=== PATIENT | female | born 1935 | race Caucasian/White ===

== ENCOUNTER → 2024-02-13 11:08 | Outpatient (REF) | payer MEDICARE, OTHER, SELFPAY ==
[2024-02-13 12:02] LABS: Urine Albumin Trace (Neg - Trace); Urine Bilirubin Negative (Negative); Urine Character Clear (Clear); Urine Color Yellow; Urine Glucose 3+ (Negative); Urine Ketone Negative (Negative); Urine Leukocyte 1+ (Negative); Urine Nitrite Negative (Negative); Urine Occult Blood Negative (Negative); Urine Specific Gravity 1.015 (<1.030); Urine Urobilinogen Negative (Neg - 1+)
[2024-02-13 12:29] LABS: Urine Squamous Cell >30 /LPF (Few)
[2024-02-13 12:32] LABS: Urine Urothelial Cell 0-2 /LPF (FEW)
[2024-02-13 12:37] LABS: Urine Bacteria Few (Negative)
== END ==
LOC: REG 11:08
PROVIDERS: ATTENDING PHYSICIAN Family Medicine
DX: N39.0 Urinary tract infection, site not specified (principal)
CPT/HCPCS: 81003; 81015; 87086

== ENCOUNTER → 2024-02-20 16:08 | Outpatient (REF) | payer MEDICARE, OTHER, SELFPAY ==
[2024-02-20 17:14] LABS: Urine Albumin Negative (Neg - Trace); Urine Bilirubin Negative (Negative); Urine Character Clear (Clear); Urine Color Yellow; Urine Glucose Negative (Negative); Urine Ketone Negative (Negative); Urine Leukocyte Negative (Negative); Urine Nitrite Negative (Negative); Urine Occult Blood Negative (Negative); Urine Specific Gravity 1.005 (<1.030); Urine Urobilinogen Negative (Neg - 1+)
== END ==
LOC: REG 16:08
PROVIDERS: ATTENDING PHYSICIAN Family Medicine
DX: N39.0 Urinary tract infection, site not specified (principal)
CPT/HCPCS: 81003; 87086

== ENCOUNTER → 2024-03-07 11:43 | Outpatient (REF) | payer MEDICARE, OTHER, SELFPAY ==
[2024-03-07 12:38] LABS: Urine Albumin Trace (Neg - Trace); Urine Bilirubin Negative (Negative); Urine Character Clear (Clear); Urine Color Yellow; Urine Glucose Negative (Negative); Urine Ketone Negative (Negative); Urine Leukocyte Trace (Negative); Urine Nitrite Negative (Negative); Urine Occult Blood Negative (Negative); Urine Urobilinogen Negative (Neg - 1+)
[2024-03-07 12:55] LABS: Urine Bacteria Few (Negative); Urine Red Blood Cell 0-2 /HPF (0-2)
== END ==
LOC: REG 11:43
PROVIDERS: ATTENDING PHYSICIAN Family Medicine
DX: R30.0 Dysuria (principal)
CPT/HCPCS: 81003; 81015

== ENCOUNTER → 2024-05-01 13:37 | Outpatient (REF) | payer MEDICARE, OTHER, SELFPAY ==
[2024-05-01 15:34] LABS: Blood Urea Nitrogen 49 mg/dl (7-17); Calcium 9.4 mg/dl (8.4-10.2); Carbon Dioxide 29 mmol/L (22-30); Chloride 98 mmol/L (98-107); Glucose 287 mg/dl (70-99); Sodium 135 mmol/L (135-145); eGFR 25.24
== END ==
LOC: REG 13:37
PROVIDERS: ATTENDING PHYSICIAN Internal Medicine Cardiovascular Disease
DX: I50.33 Acute on chronic diastolic (congestive) heart failure (principal)
CPT/HCPCS: 36415; 80048

== ENCOUNTER → 2024-05-22 14:42 | Outpatient (REF) | payer MEDICARE, OTHER, SELFPAY ==
[2024-05-22 15:44] LABS: Urine Albumin Trace (Neg - Trace); Urine Bilirubin Negative (Negative); Urine Character Clear (Clear); Urine Color Yellow; Urine Glucose 1+ (Negative); Urine Ketone Negative (Negative); Urine Leukocyte Trace (Negative); Urine Nitrite Negative (Negative); Urine Occult Blood Negative (Negative); Urine Urobilinogen Negative (Neg - 1+); Urine pH 6.5 (5.0-9.0)
[2024-05-22 15:50] LABS: Urine Bacteria Many (Negative); Urine Red Blood Cell 0-2 /HPF (0-2)
== END ==
LOC: REG 14:42
PROVIDERS: ATTENDING PHYSICIAN Family Medicine
DX: R30.0 Dysuria (principal)
CPT/HCPCS: 81003; 81015; 87077; 87086

== ENCOUNTER → 2024-06-19 13:40 | Outpatient (REF) | payer MEDICARE, OTHER, SELFPAY ==
[2024-06-19 14:13] LABS: Urine Albumin Trace (Neg - Trace); Urine Bilirubin Negative (Negative); Urine Character Slightly Cloudy (Clear); Urine Color Yellow; Urine Glucose Negative (Negative); Urine Ketone Negative (Negative); Urine Leukocyte Trace (Negative); Urine Nitrite Negative (Negative); Urine Occult Blood Negative (Negative); Urine Urobilinogen Negative (Neg - 1+)
[2024-06-19 14:36] LABS: Urine Bacteria Many (Negative); Urine Red Blood Cell 0-2 /HPF (0-2); Urine Squamous Cell 0-2 /LPF (Few)
== END ==
LOC: REG 13:40
PROVIDERS: ATTENDING PHYSICIAN Family Medicine
DX: N39.0 Urinary tract infection, site not specified (principal)
CPT/HCPCS: 81003; 81015; 87077; 87086; 87186

== ENCOUNTER → 2024-07-08 16:44 | Outpatient (REF) | payer MEDICARE, OTHER, SELFPAY ==
[2024-07-08 17:00] LABS: Urine Albumin Trace (Neg - Trace); Urine Bilirubin Negative (Negative); Urine Character Slightly Cloudy (Clear); Urine Color Yellow; Urine Glucose 2+ (Negative); Urine Ketone Negative (Negative); Urine Leukocyte Negative (Negative); Urine Nitrite Negative (Negative); Urine Occult Blood Negative (Negative); Urine Urobilinogen Negative (Neg - 1+)
== END ==
LOC: REG 16:44
PROVIDERS: ATTENDING PHYSICIAN Family Medicine
DX: R30.9 Painful micturition, unspecified (principal)
CPT/HCPCS: 36415; 81003; 87077; 87086

== ENCOUNTER → 2024-08-12 12:00 | Outpatient (REF) | payer MEDICARE, OTHER, SELFPAY ==
[2024-08-12 14:07] LABS: Urine Albumin Trace (Neg - Trace); Urine Bilirubin Negative (Negative); Urine Character Clear (Clear); Urine Color Yellow; Urine Glucose Negative (Negative); Urine Ketone Negative (Negative); Urine Leukocyte Trace (Negative); Urine Nitrite Negative (Negative); Urine Occult Blood Negative (Negative); Urine Urobilinogen Negative (Neg - 1+); Urine pH 6.5 (5.0-9.0)
[2024-08-12 14:32] LABS: Urine Bacteria Many (Negative); Urine Red Blood Cell 0-2 /HPF (0-2)
== END ==
LOC: REG 12:00
PROVIDERS: ATTENDING PHYSICIAN Family Medicine
DX: R30.9 Painful micturition, unspecified (principal)
CPT/HCPCS: 36415; 81003; 81015; 87077; 87086; 87186

== ENCOUNTER → 2024-08-27 12:57 | Outpatient (REF) | payer MEDICARE, OTHER, SELFPAY ==
[2024-08-27 14:28] LABS: Urine Albumin Trace (Neg - Trace); Urine Bilirubin Negative (Negative); Urine Character Very Cloudy (Clear); Urine Color Yellow; Urine Glucose 2+ (Negative); Urine Ketone Negative (Negative); Urine Leukocyte Negative (Negative); Urine Nitrite Negative (Negative); Urine Occult Blood Negative (Negative); Urine Urobilinogen Negative (Neg - 1+)
== END ==
LOC: REG 12:57
PROVIDERS: ATTENDING PHYSICIAN Family Medicine
DX: R30.9 Painful micturition, unspecified (principal)
CPT/HCPCS: 81003; 87086

== ENCOUNTER → 2024-08-28 13:50 | Outpatient (REF) | payer MEDICARE, OTHER, SELFPAY ==
[2024-08-28 14:56] LABS: % Basophils 0.4 % (0-2); % Eosinophils 2.9 % (0-6); % Immature Granulocytes 1.4 % (0-0.5); % Monocytes 8.9 % (1.7-9.3); % Neutrophils 73.4 % (42.2-75.2); Absolute Eosinophils 0.3 10^3/uL (0-0.7); Absolute Immature Granulocytes 0.1 10^3/uL (0-0.05); Absolute Lymphocytes 1.1 10^3/uL (1.2-3.4); Absolute Monocytes 0.8 10^3/uL (0.1-0.6); Absolute Neutrophils 6.3 10^3/uL (1.4-6.5); Hematocrit 36.4 % (37.0-47.0); Hemoglobin 11.9 g/dL (12.0-16.0); Mean Corp Hgb Conc. 32.7 g/dL (33.0-37.0); Mean Corpuscular Hgb 33.2 pg (27.0-31.0); Mean Corpuscular Volume 101.7 fL (81.0-99.0); Mean Platelet Volume 8.6 fL (7.4-10.4); Nucleated Red Blood Cells % 0 %; Platelet Count 203 10^3/uL (130-400); Red Blood Cell Count 3.58 10^6/uL (4.20-5.40); Red Cell Dist. Width 16.9 % (11.5-14.5); White Blood Cell Count 8.6 10^3/uL (4.8-10.8)
[2024-08-28 15:16] LABS: ALT (SGPT) 21 U/L (0-35); AST (SGOT) 28 U/L (14-36); Albumin 3.7 g/dl (3.5-5.0); Alkaline Phosphatase 130 U/L (38-126); Blood Urea Nitrogen 50 mg/dl (7-17); Calcium 9.5 mg/dl (8.4-10.2); Carbon Dioxide 29 mmol/L (22-30); Chloride 97 mmol/L (98-107); Glucose 276 mg/dl (70-99); Magnesium 1.9 mg/dl (1.6-2.3); Potassium 4.7 mmol/L (3.5-5.1); Sodium 139 mmol/L (135-145); Total Bilirubin 0.4 mg/dl (0.2-1.3); Total Protein 6.8 g/dl (6.3-8.2); eGFR 26.93
[2024-08-28 15:20] LABS: NT-proBNP 7130 pg/ml
== END ==
LOC: REG 13:50
PROVIDERS: ATTENDING PHYSICIAN Internal Medicine Cardiovascular Disease; FAMILY PHYSICIAN Family Medicine
DX: I50.32 Chronic diastolic (congestive) heart failure (principal); R06.02 Shortness of breath; E78.5 Hyperlipidemia, unspecified
CPT/HCPCS: 36415; 80053; 83735; 83880; 85025

== ENCOUNTER → 2024-09-15 13:48 | Outpatient (REF) | payer MEDICARE, OTHER, SELFPAY ==
[2024-09-15 14:22] LABS: Urine Albumin Negative (Neg - Trace); Urine Bilirubin Negative (Negative); Urine Character Clear (Clear); Urine Color Yellow; Urine Glucose 1+ (Negative); Urine Ketone Negative (Negative); Urine Leukocyte Negative (Negative); Urine Nitrite Negative (Negative); Urine Occult Blood Negative (Negative); Urine Urobilinogen Negative (Neg - 1+)
== END ==
LOC: REG 13:48
PROVIDERS: ATTENDING PHYSICIAN Family Medicine
DX: R30.0 Dysuria (principal)
CPT/HCPCS: 81003; 87077; 87086

== ENCOUNTER → 2024-10-22 13:34 | Outpatient (REF) | payer MEDICARE, OTHER, SELFPAY ==
[2024-10-22 15:01] LABS: Urine Albumin Trace (Neg - Trace); Urine Bilirubin Negative (Negative); Urine Character Slightly Cloudy (Clear); Urine Color Yellow; Urine Glucose 1+ (Negative); Urine Ketone Negative (Negative); Urine Leukocyte 1+ (Negative); Urine Nitrite Negative (Negative); Urine Occult Blood Negative (Negative); Urine Specific Gravity 1.015 (<1.030); Urine Urobilinogen Negative (Neg - 1+)
[2024-10-22 15:46] LABS: Urine Red Blood Cell 0-2 /HPF (0-2)
[2024-10-22 15:47] LABS: Urine Bacteria Many (Negative)
== END ==
LOC: REG 13:34
PROVIDERS: ATTENDING PHYSICIAN Family Medicine
DX: N39.0 Urinary tract infection, site not specified (principal)
CPT/HCPCS: 81003; 81015; 87077; 87086; 87186

== ENCOUNTER → 2024-12-16 14:37 | Outpatient (REF) | payer MEDICARE, OTHER, SELFPAY ==
[2024-12-16 16:35] LABS: Urine Albumin 2+ (Neg - Trace); Urine Bilirubin Negative (Negative); Urine Character Clear (Clear); Urine Color Yellow; Urine Glucose Negative (Negative); Urine Ketone Negative (Negative); Urine Leukocyte 2+ (Negative); Urine Nitrite Negative (Negative); Urine Occult Blood 1+ (Negative); Urine Urobilinogen Negative (Neg - 1+)
[2024-12-16 16:55] LABS: Urine Bacteria Many (Negative); Urine White Cell 16-20 /HPF (0-5)
== END ==
LOC: REG 14:37
PROVIDERS: ATTENDING PHYSICIAN Family Medicine
DX: N39.0 Urinary tract infection, site not specified (principal)
CPT/HCPCS: 81003; 81015; 87077; 87086

== ENCOUNTER → 2024-12-20 11:28 | Outpatient (REF) | payer MEDICARE, OTHER, SELFPAY ==
[2024-12-20 12:20] LABS: % Basophils 0.6 % (0-2); % Eosinophils 2.4 % (0-6); % Immature Granulocytes 0.5 % (0-0.5); % Lymphocytes 10.2 % (20.5-51.1); % Monocytes 7.2 % (1.7-9.3); % Neutrophils 79.1 % (42.2-75.2); Absolute Basophils 0.1 10^3/uL (0-0.2); Absolute Eosinophils 0.2 10^3/uL (0-0.7); Absolute Lymphocytes 0.9 10^3/uL (1.2-3.4); Absolute Monocytes 0.6 10^3/uL (0.1-0.6); Hematocrit 38.1 % (37.0-47.0); Hemoglobin 12.2 g/dL (12.0-16.0); Mean Corpuscular Hgb 33.8 pg (27.0-31.0); Mean Corpuscular Volume 105.5 fL (81.0-99.0); Nucleated Red Blood Cells % 0.2 %; Platelet Count 185 10^3/uL (130-400); Red Blood Cell Count 3.61 10^6/uL (4.20-5.40); Red Cell Dist. Width 15.9 % (11.5-14.5); White Blood Cell Count 8.8 10^3/uL (4.8-10.8)
[2024-12-20 12:33] LABS: Blood Urea Nitrogen 57 mg/dl (7-17); Calcium 9.4 mg/dl (8.4-10.2); Carbon Dioxide 30 mmol/L (22-30); Chloride 93 mmol/L (98-107); Glucose 242 mg/dl (70-99); Potassium 4.3 mmol/L (3.5-5.1); Sodium 134 mmol/L (135-145); eGFR 18.16
== END ==
LOC: REG 11:28
PROVIDERS: ATTENDING PHYSICIAN Internal Medicine Hospice and Palliative Medicine; FAMILY PHYSICIAN Family Medicine
DX: R41.0 Disorientation, unspecified (principal); E11.9 Type 2 diabetes mellitus without complications
CPT/HCPCS: 36415; 80048; 85025

== ENCOUNTER → 2024-12-30 11:33 | Outpatient (REF) | payer MEDICARE, OTHER, SELFPAY ==
[2024-12-30 12:03] LABS: % Basophils 0.5 % (0-2); % Eosinophils 3.3 % (0-6); % Immature Granulocytes 0.2 % (0-0.5); % Lymphocytes 9.7 % (20.5-51.1); % Monocytes 9.1 % (1.7-9.3); % Neutrophils 77.2 % (42.2-75.2); Absolute Basophils 0.1 10^3/uL (0-0.2); Absolute Eosinophils 0.3 10^3/uL (0-0.7); Absolute Monocytes 0.9 10^3/uL (0.1-0.6); Absolute Neutrophils 7.8 10^3/uL (1.4-6.5); Hematocrit 38.3 % (37.0-47.0); Hemoglobin 12.8 g/dL (12.0-16.0); Mean Corp Hgb Conc. 33.4 g/dL (33.0-37.0); Mean Corpuscular Hgb 34.1 pg (27.0-31.0); Mean Corpuscular Volume 102.1 fL (81.0-99.0); Nucleated Red Blood Cells % 0 %; Platelet Count 217 10^3/uL (130-400); Red Blood Cell Count 3.75 10^6/uL (4.20-5.40); Red Cell Dist. Width 15.2 % (11.5-14.5); White Blood Cell Count 10.2 10^3/uL (4.8-10.8)
[2024-12-30 13:06] LABS: NT-proBNP 8280 pg/ml
[2024-12-30 13:09] LABS: ALT (SGPT) 24 U/L (0-35); AST (SGOT) 29 U/L (14-36); Albumin 4.2 g/dl (3.5-5.0); Alkaline Phosphatase 142 U/L (38-126); Blood Urea Nitrogen 61 mg/dl (7-17); Calcium 9.3 mg/dl (8.4-10.2); Carbon Dioxide 31 mmol/L (22-30); Chloride 92 mmol/L (98-107); Glucose 176 mg/dl (70-99); Potassium 4.3 mmol/L (3.5-5.1); Sodium 136 mmol/L (135-145); Total Bilirubin 0.9 mg/dl (0.2-1.3); Total Protein 7.3 g/dl (6.3-8.2); eGFR 21.17
[2024-12-30 13:15] LABS: Free T4 1.97 ng/dl (0.78-2.19)
[2024-12-30 13:29] LABS: TSH 2.69 uIU/ml (0.47-4.68)
[2024-12-30 13:55] LABS: Glycohemoglobin (HgbA1c) 8.3 % (4.0-5.6)
== END ==
LOC: REG 11:33
PROVIDERS: ATTENDING PHYSICIAN Internal Medicine Cardiovascular Disease; FAMILY PHYSICIAN Family Medicine; REFERRING PHYSICIAN Physician Assistant
DX: E03.9 Hypothyroidism, unspecified (principal); E11.65 Type 2 diabetes mellitus with hyperglycemia; I48.0 Paroxysmal atrial fibrillation
CPT/HCPCS: 36415; 80053; 83036; 83880; 84439; 84443; 85025

== ENCOUNTER → 2025-01-19 16:44 | Outpatient (REF) | payer MEDICARE, OTHER, SELFPAY ==
[2025-01-19 17:35] LABS: Urine Albumin 2+ (Neg - Trace); Urine Bilirubin Negative (Negative); Urine Character Clear (Clear); Urine Color Yellow; Urine Glucose 2+ (Negative); Urine Ketone Negative (Negative); Urine Leukocyte 2+ (Negative); Urine Nitrite Negative (Negative); Urine Occult Blood Negative (Negative); Urine Specific Gravity 1.015 (<1.030); Urine Urobilinogen Negative (Neg - 1+)
[2025-01-19 17:48] LABS: Urine Squamous Cell 21-25 /LPF (Few)
[2025-01-19 17:50] LABS: Urine Bacteria Many (Negative); Urine Red Blood Cell 0-2 /HPF (0-2); Urine White Cell 26-30 /HPF (0-5)
== END ==
LOC: REG 16:44
PROVIDERS: ATTENDING PHYSICIAN Family Medicine
DX: N39.0 Urinary tract infection, site not specified (principal)
CPT/HCPCS: 81003; 81015; 87086

== ENCOUNTER 2025-01-23 07:31 | Inpatient (IN) | payer MEDICARE, OTHER, SELFPAY ==
[2025-01-23] VITALS (24 sets, daily range): BP systolic 115–160; BP diastolic 62–112; BMI 34.6
[2025-01-23 01:36] LABS: Glucose - Point of Care 110 mg/dl (70-99)
[2025-01-23 01:54] LABS: % Basophils 0.7 % (0-2); % Eosinophils 2.5 % (0-6); % Immature Granulocytes 0.3 % (0-0.5); % Lymphocytes 8.6 % (20.5-51.1); % Monocytes 11.2 % (1.7-9.3); % Neutrophils 76.7 % (42.2-75.2); Absolute Basophils 0.1 10^3/uL (0-0.2); Absolute Eosinophils 0.2 10^3/uL (0-0.7); Absolute Lymphocytes 0.6 10^3/uL (1.2-3.4); Absolute Monocytes 0.8 10^3/uL (0.1-0.6); Absolute Neutrophils 5.4 10^3/uL (1.4-6.5); Hemoglobin 12.1 g/dL (12.0-16.0); Mean Corp Hgb Conc. 31.8 g/dL (33.0-37.0); Mean Corpuscular Hgb 33.8 pg (27.0-31.0); Mean Corpuscular Volume 106.1 fL (81.0-99.0); Mean Platelet Volume 9.1 fL (7.4-10.4); Nucleated Red Blood Cells % 0 %; Platelet Count 162 10^3/uL (130-400); Red Blood Cell Count 3.58 10^6/uL (4.20-5.40); Red Cell Dist. Width 16.8 % (11.5-14.5); White Blood Cell Count 7.1 10^3/uL (4.8-10.8)
[2025-01-23 02:02] LABS: INR 1.43
[2025-01-23 02:03] LABS: APTT 34.9 Sec (23.4-35.0)
[2025-01-23 02:06] LABS: ALT (SGPT) 23 U/L (0-35); AST (SGOT) 27 U/L (14-36); Albumin 4.3 g/dl (3.5-5.0); Alkaline Phosphatase 132 U/L (38-126); Blood Urea Nitrogen 81 mg/dl (7-17); Calcium 9.5 mg/dl (8.4-10.2); Carbon Dioxide 35 mmol/L (22-30); Chloride 96 mmol/L (98-107); Estimated Creatinine Clearance 18 ml/min; Glucose 108 mg/dl (70-99); Potassium 3.7 mmol/L (3.5-5.1); Sodium 141 mmol/L (135-145); Total Bilirubin 0.9 mg/dl (0.2-1.3); Total Protein 7.6 g/dl (6.3-8.2); eGFR 21.17
[2025-01-23 02:16] LABS: Erythrocyte Sed Rate 41 mm/hour (0-20)
[2025-01-23 02:22] LABS: Urine Bilirubin Negative (Negative); Urine Character Clear (Clear); Urine Color Yellow; Urine Glucose Negative (Negative); Urine Ketone Negative (Negative); Urine Leukocyte Negative (Negative); Urine Nitrite Negative (Negative); Urine Occult Blood Negative (Negative); Urine Specific Gravity 1.015 (<1.030); Urine Urobilinogen Negative (Neg - 1+)
[2025-01-23 02:26] LABS: Urine Albumin Trace (Neg - Trace)
[2025-01-23 02:49] LABS: Venous Blood Gas B.E. 6.7 mmol/L (-4 to +4); Venous Blood Gas HCO3 33.5 mmol/L (22-27); Venous Blood Gas O2 Sat % 98.1 %; Venous Blood Gas pCO2 58 mmHg (35-48); Venous Blood Gas pH 7.37 (7.32-7.43); Venous Blood Gas pO2 83 mmHg (30-50)
[2025-01-23 03:05] LABS: Lactic Acid 1.2 mmol/L (0.7-2.0)
[2025-01-23 03:29] LABS: Procalcitonin 0.06 ng/ml (0.0-0.25)
[2025-01-23 04:22] LABS: COVID-19 Antigen Negative (Negative)
[2025-01-23 04:39] LABS: NT-proBNP 14500 pg/ml
--- NOTE | 2025-01-23 04:49 | ED.GENMED ---
History of Present Illness
General
Chief Complaint: Unresponsive
Time Seen by Provider: 01/23/25 01:38
History of Present Illness
History of Present Illness:
89-year-old female brought in by EMS for altered mental status. could not wake his up. Dexcom read 74 so has been tried to give her orange juice. EMS was called on arrival blood sugar was 55. EMS gave D10 and blood sugar increased
to 142 without any change in patient's mental status. Patient was responsive to painful stimuli upon arrival. Family member states that she has been putting on weight. She does take Lasix but feel that she has had a 10 pound weight gain. Son
even feels that patient might of taken or have been given too much Ambien. Something that he will monitor.
Past History
Past History
ED Past Medical History: CAD, Cancer (malignant melanoma, basal cell carcinoma of the ear), COPD, GERD, HTN, Hypercholesterolemia, NIDDM, [place], Hypothyroidism, Other (insulin pump, iron deficiency anemia, duodenal ulcer, intra-abdominal
lymphadenopathy dating 01/01/14, patient has been vaccinated for COVID-19), Other (polyneuropathy, hyperparathyroidism 2018, osteoarthritis, postherpetic neuralgia) and Other (chronic pain, glaucoma, diverticulosis, colonic polyposis, vitamin B12
deficiency)
ED Past Surgical History: Cholecystectomy, Gynecological (ROMEL/BSO), Orthopedic (carpal tunnel repair, laminectomy) and Other (cervicalgia with 2 epidural injections, Mohs surgery for basal cell carcinoma of the ear); Negative Bowel resection (rectal
fistulas surgically repaired)
Social History
Tobacco: Non-smoker
Alcohol: None
Drug: None
Personal:
Living: with family
Employment: Retired
Family History
Family History: Other (reviewed and noncontributory)
Phy Exam
Physical Exam
Physical Exam:
Physical Exam
Vital signs and allergy list reviewed and agreed with.
GENERAL: Obtunded, in minimal
EYE: pupils equal, EOMI, anicteric
NECK: Supple, no significant adenopathy. No masses. Trachea midline
ENT: Oropharynx is clear, mmm.
CARDIAC: Regular rate and rhythm . No M/R/G
LUNGS: Clear breath sounds bilaterally, no acute respiratory distress, no wheezes/rales/rhonchi
ABDOMEN: Soft, without focal tenderness, no r/g, no cvat. Normal BSx4q
NEUROLOGICAL: Alert and oriented, no focal neuro deficits
SKIN: Warm and dry, skin intact.
MUSCULOSKELETAL: No edema, well perfused. Moves all 4 extremities
PSYCH: Minimal interaction
Scores
Heart Failure Risk
Heart Failure Risk Score: Yes
History of Stroke or TIA: No
History of intubation for respiratory distress: No
Heart rate on ED arrival >/= 110: No
SaO2 <90% on arrival on room air: No
HR >/=110 during 3min walk test (or too ill to perform test): Yes
ECG has acute ischemic changes: No
Urea >/=12mmol/L (BUN 33.6mg/dL): Yes
Serum CO2>/=35mmol/L: Yes
Troponin I or T elevated to [place] Level (0.4mg/dL): Yes
NT-proBNP >/=5,000ng/L (5,000pg/ml): Yes
HF Risk Score: 8
Admission Status: VERY HIGH RISK 81.2% Consider admission to hospital
Course
Orders/Labs/Results
Orders:
Orders
01/23/25 01:38
CT Head W/o Iv Contrast Urgent
Comment:
Reason For Exam: unresponsive
Cardiac Monitoring- Treatment ONCE
01/23/25 01:39
Electrocardiogram (*1) Stat
Reason for Study: Other
Other Reason for Exam: neuro symptoms
EKG- Treatment ONCE
01/23/25 01:44
B-Hydroxybutyrate Urgent
Complete Blood Count/With Diff Urgent
Comprehensive Metabolic Panel Urgent
Erythrocyte Sed Rate Urgent
PTT Urgent
Prothrombin Time Urgent
01/23/25 02:04
Straight cath- Treatment ONCE
Straight Cath As Directed
Frequency: One time now
01/23/25 02:16
Urinalysis Reflex To Culture Urgent
Date Specimen was Collected: 01/23/25
Time Specimen was Collected: 02:05
01/23/25 02:45
Lactic Acid Q4H
Comment: CANCEL 2nd LACTIC ACID IF 1st LACTIC ACID IS LESS THAN 2
Procalcitonin Urgent
PCT Algorithmm Indication: Sepsis
Venous Blood Gas Urgent
%Oxygen/Room Air: 2l
01/23/25 03:45
COVID-19 Antigen Urgent
Source: Nasal Swab
Pro-BNP [NT-proBNP] Urgent
Troponin I Urgent
Comment: ADD ON
Influenza A+B Rapid Molecular Urgent
YA Source: Nasal Swab
Specimen Description:
01/23/25 04:49
Furosemide [Lasix] 80 mg IV NOW STA
01/23/25 04:52
Add On- LAB Urgent
Tests Added?: troponin
01/23/25 06:00
Flush (0.9% Sodium Chloride) [Flush (Nss)] See Dose Instructions IV PER PROTOCOL
01/23/25 06:19
CR Chest Portable - 1 View Stat
Comment:
Reason For Exam: shortness of breath
Reason Study Needs to be Portable: Unable to Transport
01/23/25 06:52
Admit/Transfer Patient As Directed
Co-Sign Provider:
Level of Care: Inpatient admission
Assign to:: IMU- Intermediate Care
Physician / Group: hospitalist
Diagnosis: CHF exacerbation
Reason for Hospitalization: CHF exacerbation/altered mentation
Expected length of stay greater than two midnights?: Yes
ELOS- Estimated Length of Stay in days: 2
I certify the patient meets the requirements for IP care: Yes
PRN Pain Medication Management As Directed
May give lesser potent ordered pain med per pt: Yes
preference::
Protocol:: Medication orders for pain may be administered in a
manner that supports deferring to patient preference
when the pt is:
- Requesting an ordered lesser potent pain medication.
Least to most potent pain medications are defined
as: acetaminophen < NSAID < tramadol < opioids
(morphine, oxycodone, hydromorphone).
- Requesting a lesser dose of the same medication IF
ORDERED.
- Requesting a less intrusive route of administration
if both routes are prescribed by the provider (PO <
IV).
01/23/25 06:55
Code Status As Directed
Resuscitation Status: Do not resuscitate
Reached after discussion with pt or family/Healthcare POA: Yes
Based on pt advanced directive or healthcare POA form: Yes
DNR Bracelet Application ONCE
Abnormal Lab Results
01/23/25 01/23/25 01/23/25
01:35 01:44 02:45
RBC 3.58 L 10^6/uL
(4.20-5.40)
MCV 106.1 H fL
(81.0-99.0)
MCH 33.8 H pg
(27.0-31.0)
MCHC 31.8 L g/dL
(33.0-37.0)
RDW 16.8 H %
(11.5-14.5)
Absolute Lymphs (auto) 0.6 L 10^3/uL
(1.2-3.4)
Absolute Monos (auto) 0.8 H 10^3/uL
(0.1-0.6)
Neutrophils % 76.7 H %
(42.2-75.2)
Lymphocytes % 8.6 L %
(20.5-51.1)
Monocytes % 11.2 H %
(1.7-9.3)
ESR 41 H mm/hour
(0-20)
PT 18.0 H Sec
(11.4-14.6)
VBG pCO2 58 H mmHg
(35-48)
VBG pO2 83 H mmHg
(30-50)
VBG HCO3 33.5 H mmol/L
(22-27)
Chloride 96 L mmol/L
(98-107)
Carbon Dioxide 35 H mmol/L
(22-30)
BUN 81 H mg/dl
(7-17)
Creatinine 2.2 H mg/dL
(0.6-1.0)
Glucose 108 H mg/dl
(70-99)
Alkaline Phosphatase 132 H U/L
(38-126)
Troponin I
POC Glucose 110 H mg/dl
(70-99)
01/23/25
03:45
RBC
MCV
MCH
MCHC
RDW
Absolute Lymphs (auto)
Absolute Monos (auto)
Neutrophils %
Lymphocytes %
Monocytes %
ESR
PT
VBG pCO2
VBG pO2
VBG HCO3
Chloride
Carbon Dioxide
BUN
Creatinine
Glucose
Alkaline Phosphatase
Troponin I 0.142 H* ng/ml
POC Glucose
01/23/25 01:44
01/23/25 01:44
Vital Signs
Initial and Last Documented VS:
Initial Vital Signs
Pulse Resp Pulse Ox
104 19 97
01/23/25 01:34 01/23/25 01:34 01/23/25 01:34
Last Documented Vital Signs
Temp Pulse Resp BP Pulse Ox
98.1 F 77 20 143/90 98
01/23/25 02:17 01/23/25 06:45 01/23/25 06:45 01/23/25 06:30 01/23/25 06:45
*Critical Care Note
Total Time (30-74mins, 75-104mins- exclusive of procedures): Critical care statement: (Critical care statement: A total of 30 minutes of critical care time was provided for this patient. This time is separate from time utilized to perform the
aforementioned documented procedures. Aggregate critical care time includes only time during which I was engaged in work directl)
Update Note
Update Note:
Patient proBNP is elevated.
ED Attending Note
-
Portions of this chart may have been created with voice recognition software.� Occasional wrong word or��sound alike� substitutions may have occurred due to the inherent limitations of voice recognition software.
Discharge Plan
Departure
Patient Disposition: Admit
Date of Disposition: 01/23/25
Time of Disposition: 04:52
Admit to: Telemetry
Presentation/result/management discussed w/ accepting MD/DO: Hospitalist
Discharge Problem:
Acute alteration in mental status, CHF (congestive heart failure), Acute renal failure
Prescriptions:
No Action
gabapentin 300 MG capsule
600 mg PO TID
atorvastatin 40 MG tablet
40 mg PO QPM 30 Days Qty: 30 0RF
pantoprazole 40 MG tablet,delayed release (DR/EC)
40 mg PO BID 30 Days Qty: 60 2RF
Eliquis 2.5 MG tablet
2.5 mg PO BID 30 Days Qty: 60 0RF
metoprolol succinate [Toprol XL] 50 mg Tablet Extended Release 24 Hr
25 mg PO BID
sennosides [Senokot] 8.6 mg Tablet
8.6 mg PO QPMPRN PRN (Reason: constipation)
potassium chloride 10 mEq Capsule, Extended Release
20 meq PO DAILY
levothyroxine 125 mcg Tablet
137 mcg PO DAILY
zolpidem 5 mg Tablet
5 mg PO HS
Rx Instructions:
10/09/2023, patient filled this medication on 09/10/2023 for 30 tablets according to PDMP.
insulin aspart U-100 [Novolog FlexPen U-100 Insulin] 100 unit/mL (3 mL) Insulin Pen
0 sliding scale dose SC DIRECTED
Rx Instructions:
10/09/2023, if BS <100 = 0 units; 100-149 = 16 units; 150-199 = 19 units; 200-249 = 21 units; 250-299 = 23 units; 300-349 = 25 units; 350-399 = 27 units; 400+ = 29 units and contact MD.
duloxetine 60 mg Capsule,Delayed Release(Dr/Ec)
30 mg PO QPM
cholecalciferol (vitamin D3) 25 mcg (1,000 unit) Tablet
50 mcg PO DAILY
metolazone 2.5 mg tablet
1.25 mg PO DAILYPRN PRN (Reason: edema)
insulin degludec [Tresiba U-100 Insulin] 100 UNIT/ML solution
27 unit SC QPM
furosemide [Lasix] 80 mg tablet
80 mg PO BID
dextromethorphan-guaifenesin 10-100 mg/5 mL Syrup
5 ml PO Q4HPRN PRN (Reason: cough) Qty: 237 0RF
Rx Instructions:
Buy over the counter
guaifenesin 600 mg Tablet Extended Release 12hr
600 mg PO Q12 Qty: 14 0RF
cefuroxime axetil 250 mg tablet
250 mg PO BID Qty: 6 0RF
Rx Instructions:
for 3 days
doxycycline hyclate 100 mg Capsule
100 mg PO Q12 Qty: 6 0RF
Rx Instructions:
for 3 more days
Referrals:
Jose C Rockwell MD [Family Provider] -
Interventions
Interventions:
*Risk Screen - Suicide Last Done: 01/23/25 01:49
*General Assessment Last Done: 01/23/25 01:49
*Neglect/Abuse Screening Last Done: 01/23/25 01:49
*ED- Fall Risk Assessment Last Done: 01/23/25 01:48
*ED COVID-19 Vaccine History Last Done: 01/23/25 01:48
ED- Neurological Assessment Last Done: 01/23/25 02:18
Discharge Date and Time
Print Language: BELARUSIAN
[2025-01-23] MEDS: LASIX 80 MG IV ×2 (05:01→17:07)
[2025-01-23 06:03] LABS: Troponin I 0.142 ng/ml
--- NOTE | 2025-01-23 06:10 | HPS.HSE ---
Family Physician
-
Family Physician: Jose C Rockwell
Chief Complaint
-
Altered mental status
History of Present Illness
This is a 89-year-old female with past medical history of SCOTT, COPD on nocturnal O2, not compliant with nocturnal CPAP, hypertension, GERD, CHF, A-fib status post ablation and pacemaker placement hypothyroid, presenting to the emergency department
after being found unresponsive by spouse.
Patient apparently was in usual state of health about 1 week ago. Then she started having some decreased appetite and changes in mentation. She had a urine study that was contaminated but could be positive for UTI. Ultimately patient was started
on cephalexin about 3 days ago. Family also reported that her usual weight was around 168 pounds otherwise she appears to have been gaining weight over the last few days. She usually gets edema in her abdomen and legs. Over the last few days she
also has been more noncompliant with her CPAP. They have been giving her nocturnal oxygen to prevent agitation with CPAP. Family reports that she has had similar episodes of nonresponsiveness in the setting of urinary tract infections in the past.
They denied any changes in medications. Blood glucose was checked at home and it was 78 which is somewhat low for her and he could not revive to give her additional glucose. EMS was also called. She got IV glucose with EMS with repeat glucose of
140 and she is now responsive to painful stimuli but is not fully awake still.
On arrival in the emergency department she was afebrile, she was satting 94% on 2 L. Blood pressure was 121/70 with a pulse of 79. ECG with V paced rhythm. Trop 0.142. COVID and influenza test were negative. UA was negative. CT of the head
shows no acute interval changes. She has elevated BNP of 1400. CBC was unremarkable stop electrolytes BUN/creatinine shows stable elevated BUN/creatinine compared to 1 month ago. ABG was 7.3 /33.5
Interrogation of PPM shows no events since January 13. CT of the head shows no acute intracranial process.
Medical History
Past Medical History
Past Medical History: Reports Other
Additional Past Medical History:
Chronic HFpEF
Paroxysmal Atrial Fibrillation
Sick Sinus Syndrome s/p PPM
Essential Hypertension
Hyperlipidemia
Diabetes Mellitus, Type II
CKD Stage 4
Hypothyroidism
Peptic Ulcer Disease with hx GI Bleed
Spinal Stenosis
Peripheral Neuropathy
Obstructive Sleep Apnea
Past Surgical History: Reports Other
Additional Past Surgical History:
Rectal Fistula Repair
Cholecystectomy
ROMEL/BSO
Bilateral Carpal Tunnel Release
Laminectomy
Moh's Surgery
Social History
Tobacco: Non-smoker
Alcohol: None
Personal:
Living: With Family
Family History
Family History: Not pertinent
Allergies / Home Medications
Allergies reflects when Allergies were last updated in [employer].
Home Medications with original date entered in [employer]
Allergy/Medication List:
Allergies
Allergy/AdvReac Type Severity Reaction Status Date / Time
erythromycin base Allergy Intermediate Rash Verified 01/23/25 01:48
latex Allergy Intermediate Rash Verified 01/23/25 01:48
Opioids - Morphine Analogues Allergy Intermediate Unknown Verified 01/23/25 01:48
silver sulfadiazine Allergy Intermediate Rash Verified 01/23/25 01:48
Home Medications
gabapentin 300 mg capsule 600 mg PO TID Pain 08/05/21
apixaban 2.5 mg tablet (Eliquis) 2.5 mg PO BID Blood clot prevention/tx 30 days #60 tabs 02/23/22
atorvastatin 40 mg tablet 40 mg PO QPM High cholesterol 30 days #30 tabs 02/23/22
pantoprazole 40 mg tablet,delayed release 40 mg PO BID Gastrointestinal issue 30 days #60 tabs 02/23/22
metoprolol succinate 50 mg tablet,extended release 24 hr (Toprol XL) 25 mg PO BID Blood pressure 02/27/23
cholecalciferol (vitamin D3) 25 mcg (1,000 unit) tablet 50 mcg PO DAILY Supplement 10/09/23
duloxetine 60 mg capsule,delayed release 30 mg PO QPM Mental Health/Anxiety 10/09/23
furosemide 80 mg tablet (Lasix) 80 mg PO BID Fluid Retention/Swelling 10/09/23
insulin aspart U-100 100 unit/mL (3 mL) subcutaneous pen (Novolog FlexPen U-100 Insulin aspart) 0 sliding scale dose SC DIRECTED Diabetes 10/09/23
insulin degludec 100 unit/mL subcutaneous solution (Tresiba U-100 Insulin) 27 unit SC QPM Diabetes 10/09/23
levothyroxine 125 mcg tablet 137 mcg PO DAILY Thyroid 10/09/23
metolazone 2.5 mg tablet 1.25 mg PO DAILYPRN PRN edema 10/09/23
potassium chloride 10 mEq capsule,extended release 20 meq PO DAILY Electrolyte Repletion 10/09/23
sennosides 8.6 mg tablet (Senokot) 8.6 mg PO QPMPRN PRN constipation 10/09/23
zolpidem 5 mg tablet 5 mg PO HS sleep 10/09/23
cefuroxime axetil 250 mg tablet 250 mg PO BID #6 tabs 10/12/23
dextromethorphan-guaifenesin 10 mg-100 mg/5 mL oral syrup 5 ml PO Q4HPRN PRN cough #237 mL 10/12/23
doxycycline hyclate 100 mg capsule 100 mg PO Q12 #6 caps 10/12/23
guaifenesin 600 mg tablet, extended release 12 hr 600 mg PO Q12 #14 tabs 10/12/23
Review of Systems
-
Unable to obtain full review of systems at this time due to: Acuity
History Source: Family
Constitutional: Reports No Symptoms
EENT: Reports No Symptoms
Respiratory: Reports No Symptoms
Cardiac: Reports No Symptoms
Abdomen/GI: Reports No Symptoms
: Reports No Symptoms
Musculoskeletal: Reports No Symptoms
Skin: Reports No Symptoms
Neurological: Reports Other (confusion)
Endocrine: Reports No Symptoms
Hematologic/Lymphatic: Reports No Symptoms
Psych: Reports No Symptoms
Physical Exam
Vital Signs
Vital Signs
Temp Pulse Resp BP Pulse Ox
98.1 F 79 21 121/71 94
01/23/25 02:17 01/23/25 02:45 01/23/25 02:45 01/23/25 02:30 01/23/25 02:45
Physical Exam
General: Well Developed and Obese; No Respiratory Distress
HEENT: NormoCephalic, Anicteric, Moist mucous membranes, Atraumatic and Oxygen
Respiratory: Clear
Cardiac: S1/S2 and Regular Rhythm
Breast: Deferred by me
GI: Non Tender and Normal Bowel Sounds
Rectal: Deferred by Provider
Genito-urinary: Deferred by me
Musculoskeletal: No Clubbing, No Cyanosis and No Edema
Skin: Warm
Neuro: Awake, Alert, Oriented (oriented to person only), Nonfocal/grossly intact and Slurred Speech
Hematologic/Lymphatic: No Lymphadenopathy
Psych: Calm
Laboratory Results
-
01/23/25 01:44
01/23/25 01:44
Laboratory Results
PT 18.0 Sec (11.4-14.6) H 01/23/25 01:44
INR 1.43 01/23/25 01:44
APTT 34.9 Sec (23.4-35.0) 01/23/25 01:44
Lactic Acid Cancelled 01/23/25 06:30
Total Bilirubin 0.9 mg/dl (0.2-1.3) 01/23/25 01:44
AST 27 U/L (14-36) 01/23/25 01:44
ALT 23 U/L (0-35) 01/23/25 01:44
Alkaline Phosphatase 132 U/L (38-126) H 01/23/25 01:44
Troponin I Cancelled 01/23/25 04:51
Data Reviewed
-
Diagnostic Radiology: Image Personally Visualized and interpreted
CT Scan: Report Reviewed by me
Medical Tests (Nuc Med, Echo, EKG etc): Image Personally Visualized and interpreted
Old Records: Reviewed
Impression/Plan
-
IMPRESSION:
Patient with altered mental status not responsive to awakening by spouse, remained somnolent despite improvement with IV dextrose. Currently awake and oriented to person but remains confused. Neuro exam notable for slurred speech. U/A negative.
COVID/FLU negative. CT head negative. No other signs of infection. Despite non-compliance, VBG shows chronic CO2 retention but not particularly remarkable and with normal pH. BNP elevated, trop elevated. No chest pain. On anticoagulation.
Mental status appears to be improving.
PLAN:
1. Altered mental status - No clear etiology of encephalopathy. CO2 appropriate, negative infectious w/u, negative procal. Glucose improved. U/A negative. Possibly med related versus TIA/CVA.
- admit to telemetry
- npo for now
- hold gabapentin (takes 600 bid) and GFR is now down, hold zolpidem and CBD gummies
- MRI in am
- neurochecks q 6 hours
2. SOB - Lungs with decreased airmovement but no wheezes or crackles. Subjective weightgain per family. Trial of metolazone once w/o increased uop. BNP elevated. Trop 0.14. Suspect CHF exacerbation
- xray
- Lasix 80mg iv q 12 for now
- daily weights and i/os
- salt and fluid restrictions
- no wheezing to suggests copd exacerbation,
- negative procalcitonin
- patient has chronic elevated troponin, no cp, trend trops for now
- continue eliquis, aspirin pr x 1
- cardiology consult
3. DM II - Previously on tresiba 27 w/ sliding scale. Family stopped the tresiba due to recurrent episodes of hypoglycemia
- sliding scale insulin for now
4. AFIB
- continue Eliquis
5. UTI - u/a is clear. Patient on day 3 of 5 of cefuoxime
- continue ceftriaxone 1 g daily till sunday
6. AMANDA - AMANDA since November while on bactrim. Cr 2.2 and stable since then. bl one year ago 1.7-1.8. Poor response to metolazone at home. Weight gain and elevated bnp suggest volume overload
- continue lasix for now
- nephrology consult if creatinine increases
DVT PPX - on apixaban
Code status - DNR
[2025-01-23] MEDS: TOPROL XL 25 MG PO ×2 (09:11→20:08)
[2025-01-23] MEDS: ELIQUIS 2.5 MG PO ×2 (09:11→20:08)
[2025-01-23] MEDS: ROCEPHIN 1000 MG IV (09:12)
[2025-01-23] MEDS: SYNTHROID PO (09:14)
[2025-01-23] MEDS: STERILE WATER FOR INJECTION 10 ML IV (09:14)
[2025-01-23 09:39] LABS: Troponin I 0.154 ng/ml
[2025-01-23 09:53] LABS: Glucose - Point of Care 107 mg/dl (70-99)
[2025-01-23] MEDS: NOVOLOG FLEXPEN-LOW RESISTANCE SC ×2 (09:54→13:38)
--- NOTE | 2025-01-23 13:01 | CON.CAR ---
Addendum entered and electronically signed by Meeta Nguyen DO 01/23/25 15:14:
I saw and examined the patient.
The Pole Peeling Machine Operator's note was reviewed and I agree with the note.
Comment: Patient was seen and examined in the ED with her and cardiac PA. Eileen is an 89 year old female with PMH of persistent atrial fibrillation s/p AV node ablation and PPM implant 02/2023, chronic HFpEF, COPD, CKD, chronic anemia, HTN,
HLD, hypothyroidism, DM2, SCOTT, GERD, WESTLEY, spinal stenosis, and chronic UTIs who presented to [facility] for evaluation after she was noted to be unresponsive 01/22. Family had called the cardiology office 01/21 noting weight gain of 6lbs despite giving a
dose of metolazone the day before. Plan was to follow weights another day, so they called back 01/22 but patient was too unsteady to stand on the scale. went back later in to check on patient and she was unresponsive. Her blood sugar was 74,
so he tried to give her orange juice, but this did not help, so EMS was called. Of note, a few days prior to this she was started on antibiotics for suspected UTI. Son was concerned that patient may have accidentally taken too much ambien. In ER,
she was noted to be in acute heart failure with proBNP 14,500. Head CT was without acute intracranial abnormality, but she remained somewhat lethargic and confused, but has been improving throughout the day today. CXR consistent with heart failure.
Medtronic Carelink Express showed no arrhythmias since last device check 01/14. Covid and flu testing negative. UA unremarkable, but patient has been maintained on abx. Otherwise labwork appeared at baseline. She was admitted with altered mental
status and acute heart failure. Cardiology consulted for evaluation.
General: NAD but sleepy. Awake and alert oriented to person and place. She cannot recall events of last evening
Respiratory: Bronchovesicular breath sounds, decreased at the bases fine crackles.
Cardiac: Regular. Positive S1-S2. Device site present. No murmur or rub
Musculoskeletal: No edema. Warm distal extremities
Plan:
-Change in mental status with episode of unresponsiveness at home
-Patient had been well previous to this episode; blood sugar with Dexcom 74 but symptoms did not improve with treatment of mild hypoglycemia out of proportion to symptoms
-No reported falls or head trauma
-Has been treated at home for UTI with antibiotic. No fevers. Covid and flu testing negative. Continues on abx for previously diagnosed UTI. UA in ER unremarkable.
-History of sleep apnea and hypoxemia on CPAP with nocturnal O2. CPAP compliance has been difficult but she has been wearing nocturnal oxygen.
-Mentation improving throughout the day today. Head CT without acute intracranial abnormality. Brain MRI pending.
Acute on chronic heart failure with preserved ejection fraction
- proBNP elevated at 14,500.
- Agree w/ IV diuresis. Continue 80mg BID. May need metolazone.
-Creat stable, at baseline of 2.2, follow closely with diuresis.
-Weight elevated in ER at 188 lbs, had been 175 lbs at home on 01/21. Dry weight approx 164 lbs.
-Follow daily weights, I&Os.
-Echocardiogram
-Elevated troponin noted, appears to have chronic troponin elevation, stable at 0.142, 0.154. Likely related to chronic HFpEF and CKD.
- Known permanent atrial fibrillation s/p AV node ablation.
-Device interrogation with normal function
-Continue Eliquis 2.5mg BID and Toprol 25mg BID.
Will follow with you
Original Note:
Consultation
Consultation Request
Date/Time Consultation Requested: 01/22/2025
Date/Time Consultation Performed: 01/22/2025
Requesting Provider: Dr. Jurado
Performing Provider: Airam Bui PA-C for Dr. Nguyen
Reason for Consultation: CHF
Medical History
-
History of Present Illness:
HPI: Eileen is an 89 year old female with PMH of persistent atrial fibrillation s/p AV node ablation and PPM implant 02/2023, chronic HFpEF, COPD, CKD, chronic anemia, HTN, HLD, hypothyroidism, DM2, SCOTT, GERD, WESTLEY, spinal stenosis, and chronic UTIs
who presented to [facility] for evaluation after she was noted to be unresponsive 01/22. Family had called the cardiology office 01/21 noting weight gain of 6lbs despite giving a dose of metolazone the day before. Plan was to follow weights another day, so
they called back 01/22 but patient was too unsteady to stand on the scale. went back later in to check on patient and she was unresponsive. Her blood sugar was 74, so he tried to give her orange juice, but this did not help, so EMS was
called. Of note, a few days prior to this she was started on antibiotics for suspected UTI. Son was concerned that patient may have accidentally taken too much ambien. In ER, she was noted to be in acute heart failure with proBNP 14,500. Head CT was
without acute intracranial abnormality, but she remained somewhat lethargic and confused, but has been improving throughout the day today. CXR consistent with heart failure. Medtronic Carelink Express showed no arrhythmias since last device check
01/14. Covid and flu testing negative. UA unremarkable, but patient has been maintained on abx. Otherwise labwork appeared at baseline. She was admitted with altered mental status and acute heart failure. Cardiology consulted for evaluation.
PMH:
Permanent atrial fibrillation
Intolerant to Amiodarone due to possible lung toxicity d/josé 09/2021
Chronic OAC with Eliquis
s/p AV node ablation 03/01/2023
Chronic HFpEF
Sick sinus syndrome
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
COPD
CKD 3b
Chronic anemia
Hypertension
Hyperlipidemia
Hypothyroidism
Diabetes type 2
Obstructive sleep apnea
Malignant melanoma
Basal cell carcinoma
GERD
WESTLEY
Duodenal ulcer
Retroperitoneal lymphadenopathy
Spinal stenosis
Osteoarthritis
History of type II GA in setting of GI bleed 06/2020
Dementia
Chronic UTIs
Past Medical History
Past Medical History: Other (See HPI)
Past Surgical History: Cardiac (s/p single chamber medtronic PPM 02/20/2023, s/p AV node ablation 03/01/2023), Cholecystectomy, Gynecological (ROMEL/SBO), Orthopedic (Laminectomy) and Other (Carpel tunnel surgery, MOHS on ear, surgical repair of rectal
fistula)
Social History
Tobacco: Non-Smoker
Alcohol: None
Drug: None
Personal:
Living: With Family
Employment: Retired
Family History
Family History: CAD, Cancer, Diabetes and Hypertension
Allergies / Home Medications
Allergy/AdvReac Type Severity Reaction Status Date / Time
erythromycin base Allergy Intermediate Rash Verified 01/23/25 01:48
latex Allergy Intermediate Rash Verified 01/23/25 01:48
Opioids - Morphine Analogues Allergy Intermediate Unknown Verified 01/23/25 01:48
silver sulfadiazine Allergy Intermediate Rash Verified 01/23/25 01:48
�Medication �Instructions �Recorded �Confirmed �Type
gabapentin 300 mg capsule 600 mg PO BID Pain 08/05/21 01/23/25 History
apixaban 2.5 mg tablet (Eliquis) 2.5 mg PO BID Blood clot 02/23/22 01/23/25 Rx
prevention/tx 30 days #60 tabs
atorvastatin 40 mg tablet 40 mg PO QPM High cholesterol 30 02/23/22 01/23/25 Rx
days #30 tabs
pantoprazole 40 mg tablet,delayed 40 mg PO BID Gastrointestinal 02/23/22 01/23/25 Rx
release issue 30 days #60 tabs
duloxetine 60 mg capsule,delayed 60 mg PO HS Mental Health/Anxiety 10/09/23 01/23/25 History
release
furosemide 80 mg tablet (Lasix) 40 mg PO BID Fluid 10/09/23 01/23/25 History
Retention/Swelling
insulin aspart U-100 100 unit/mL 0 sliding scale dose SC AC Diabetes 10/09/23 01/23/25 History
(3 mL) subcutaneous pen (Novolog
FlexPen U-100 Insulin aspart)
levothyroxine 125 mcg tablet 125 mcg PO DAILY Thyroid 10/09/23 01/23/25 History
metolazone 2.5 mg tablet 1.25 mg PO DAILYPRN PRN 4 pounds 10/09/23 01/23/25 History
weight gain
potassium chloride 10 mEq 20 meq PO DAILY Electrolyte 10/09/23 01/23/25 History
capsule,extended release Repletion
sennosides 8.6 mg tablet (Senokot) 8.6 mg PO MOTH 10/09/23 01/23/25 History
zolpidem 5 mg tablet 2.5 mg PO HS sleep 10/09/23 01/23/25 History
Ellura 36 mg PO DAILY 01/23/25 01/23/25 History
Lactobac no.2-Bifidobac no.1-S. 1 cap PO DAILY 01/23/25 01/23/25 History
thermo 112.5 billion cell capsule
(Visbiome)
cephalexin 250 mg capsule 250 mg PO TID 01/23/25 01/23/25 History
cholecalciferol (vitamin D3) 50 50 mcg PO DAILY 01/23/25 01/23/25 History
mcg (2,000 unit) tablet (Vitamin
D3)
docusate sodium 100 mg capsule 100 mg PO DAILY 01/23/25 01/23/25 History
(Colace)
metoprolol succinate 25 mg 50 mg PO BID 01/23/25 01/23/25 History
tablet,extended release 24 hr
nitroglycerin 0.4 mg sublingual 0.4 mg sublingual [id number] PRN 01/23/25 01/23/25 History
tablet chest pain
therapeutic multivitamin 1 tab PO DAILY 01/23/25 01/23/25 History
Review of Systems
-
History Source: Patient and Family ( at bedside)
All other systems: Negative unless noted
Physical Exam
Vital Signs
Temp Pulse Resp BP Pulse Ox
98.1 F 77 16 132/76 98
01/23/25 02:17 01/23/25 11:00 01/23/25 11:00 01/23/25 11:00 01/23/25 10:00
Lab Results
01/23/25 01:44
01/23/25 01:44
Troponin I 0.154 ng/ml H* 01/23/25 08:32
Xdt-N-Syclhpbnoey Pept 27111 pg/ml 01/23/25 03:45
Physical Exam
General: Well Developed, Well Nourished and No Apparent Distress
HEENT: Normocephalic, Anicteric and Moist Mucous Membranes
Respiratory: Non Labored Respirations
Cardiac: Regular Rhythm
Musculoskeletal: No Clubbing, No Cyanosis and No Edema
Skin: Warm and Dry
Neuro: Nonfocal/Grossly Intact
Psych: Calm
Impression / Plan
-
PCP:
Distribution Clerk: Dr. Santa Yen
PMH:
Permanent atrial fibrillation
Intolerant to Amiodarone due to possible lung toxicity d/josé 09/2021
Chronic OAC with Eliquis
s/p AV node ablation 03/01/2023
Chronic HFpEF
Sick sinus syndrome
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
COPD
CKD 3b
Chronic anemia
Hypertension
Hyperlipidemia
Hypothyroidism
Diabetes type 2
Obstructive sleep apnea
Malignant melanoma
Basal cell carcinoma
GERD
WESTLEY
Duodenal ulcer
Retroperitoneal lymphadenopathy
Spinal stenosis
Osteoarthritis
History of type II GA in setting of GI bleed 06/2020
Dementia
Chronic UTIs
Lexiscan nuclear stress test 07/30/2019:�EKG inconclusive, dyspnea reported, perfusion images normal, EF 65%
ECHO 08/08/21:�EF 60-65%, mild cLVH, stage 2 diastolic dysfunction, posterior MAC, mild MR, mod dilated LA, trace AR
ECHO 03/21/21:�EF 65-70%, mild concentric LVH, stage I diastolic dysfunction, thickened and the leaflets, mild MR, pericardial fat pad present
Echo 02/28/2023: EF 60-65%, mild cLVH, mild MR, aortic sclerosis without stenosis, trace AR, mild TR, estimated PAP 45 mmHg, pleural effusion present.
Echo 01/23/2025: Study completed, report pending
Plan:
-Presented after being found unresponsive by . No arrhythmias noted at time of event on device check. Blood sugar was 74 and mental status did not improve w/ orange juice.
-Mentation improving throughout the day today. Head CT without acute intracranial abnormality. Brain MRI pending.
-Also in acute heart failure w/ proBNP elevated at 14,500. Agree w/ IV diuresis. Continue 80mg BID. May need metolazone.
-Creat stable, at baseline of 2.2, follow closely with diuresis.
-Weight elevated in ER at 188 lbs, had been 175 lbs at home on 01/21. Dry weight approx 164 lbs.
-Follow daily weights, I&Os.
-Echo completed in ER. Await report.
-Elevated troponin noted, appears to have chronic troponin elevation, stable at 0.142, 0.154. Likely related to chronic HFpEF and CKD.
-Covid and flu testing negative. Continues on abx for previously diagnosed UTI. UA in ER unremarkable.
-EKG reviewed, V paced. Known permanent atrial fibrillation s/p AV node ablation.
-Continue Eliquis 2.5mg BID and Toprol 25mg BID.
HPI: Eileen is an 89 year old female with PMH of persistent atrial fibrillation s/p AV node ablation and PPM implant 02/2023, chronic HFpEF, COPD, CKD, chronic anemia, HTN, HLD, hypothyroidism, DM2, SCOTT, GERD, WESTLEY, spinal stenosis, and chronic UTIs
who presented to [facility] for evaluation after she was noted to be unresponsive 01/22. Family had called the cardiology office 01/21 noting weight gain of 6lbs despite giving a dose of metolazone the day before. Plan was to follow weights another day, so
they called back 01/22 but patient was too unsteady to stand on the scale. went back later in to check on patient and she was unresponsive. Her blood sugar was 74, so he tried to give her orange juice, but this did not help, so EMS was
called. Of note, a few days prior to this she was started on antibiotics for suspected UTI. Son was concerned that patient may have accidentally taken too much ambien. In ER, she was noted to be in acute heart failure with proBNP 14,500. Head CT was
without acute intracranial abnormality, but she remained somewhat lethargic and confused, but has been improving throughout the day today. CXR consistent with heart failure. Medtronic [employer]link Express showed no arrhythmias since last device check
01/14. Covid and flu testing negative. UA unremarkable, but patient has been maintained on abx. Otherwise labwork appeared at baseline. She was admitted with altered mental status and acute heart failure. Cardiology consulted for evaluation.
Data Reviewed
-
EKG: Tracing Personally Visualized and interpreted
Radiology: Report Reviewed by me
CT Scan: Report Reviewed by me
Labs: Labs Reviewed by me
Old Records: Reviewed
[2025-01-23 13:07] LABS: Glucose - Point of Care 172 mg/dl (70-99)
--- NOTE | 2025-01-23 14:30 | PTCARENOTE ---
Patient received from ED. Patient awake and pleasant and confused. Currently on 2L N/C. No fluids through IV. Patient quickly assessed and placed on IMU level monitoring and sent straight for MRI. Admission questions to be done with at
bedside. Frantz ordered. Oriented to room, call daily in reach.
[2025-01-23] MEDS: LIPITOR 40 MG PO (17:07)
[2025-01-23] MEDS: KCL 40 MEQ PO (17:07)
[2025-01-23 17:44] LABS: Glucose - Point of Care 195 mg/dl (70-99)
--- NOTE | 2025-01-23 18:02 | W.PN.UPDATE ---
Update Note
Progress Note Update
Seen and examined. No new complaints. No acute overnight events. She is awake verbalizing knows that she is in the hospital however cannot tell me the name of the hospital. States that the year is 1924. and son at bedside.
Per dry weight 168, 1 week later increased to 178 and now 188
Evidence of conversational dyspnea
Scleral Anicteric
MMM
No JVD
CTABL
RRR, S1/S2
Soft, NT, ND, BS+
Warm, Dry
AAOx3, bilaterally 4/5 motor strength in lower and upper extremities, weak equal nut processing supervisor strength in upper extremities, weak dorsiflexion plantarflexion bilaterally
Calm
Toxic metabolic encephalopathy
-Resolving
-Suspect secondary to slightly elevated creatinine leading to delayed drug metabolism and excretion in the setting of gabapentin and CBD Gummies and Cymbalta
-Additionally per family noted poor p.o. intake therefore cannot exclude dehydration especially in the setting of creat of 2.2 baseline of 1.7-1.9 less than 1 year ago
-Since there is no focal neurological deficits hold off on MRI however was already obtained. Did not show any acute changes
Acute on chronic hypoxemic respiratory failure at baseline uses nocturnal O2/CPAP
-Wean oxygen as tolerated
-IV diuresis
Acute on chronic HFpEF exacerbation, NYHA class III-IV
-IV diuresis
-Wean oxygen
-Monitor urinary output
-Daily weights
-Repeat BMP in the a.m., keep K greater than 4 magnesium greater than 2
AMANDA, unclear if this is CKD or truly new AMANDA with potential renal vein congestion
Will repeat BMP a.m.
Monitor urinary output
Bladder scan
If getting worse consult nephrology
Avoid nephrotoxins
Avoid hypotension
UTI, recently diagnosed as outpatient was on cephalexin
Continue Rocephin for now
DM type II
Sliding scale insulin for now
Hyperlipidemia
Continue statin
SCOTT
Continue CPAP at 10
Hypertension
Continue antihypertensives
A-fib s/p ablation and PPM
Continue Eliquis
Hypothyroidism
Continue levothyroxine
[2025-01-23] MEDS: NOVOLOG FLEXPEN-LOW RESISTANCE 300 UNITS SC (18:19)
[2025-01-23 18:57] LABS: Troponin I 0.146 ng/ml
--- NOTE | 2025-01-23 20:26 | PTCARENOTE ---
Received pt at change of shift. Pt oriented to self and time but thinks we are in March. Family was at bedside; has since left. Pt remains pleasant. Pt stated that pt is on 2L at baseline at home; currently 100% on 2L NC. Discussed
with pt the importance of wearing her CPAP mask throughout the night. Q4H neurochecks; see documentation. Able to talk all medications with no issues. Hygiene care provided. Resting in bed with call daily in reach.
[2025-01-23 22:53] LABS: Glucose - Point of Care 267 mg/dl (70-99)
[2025-01-24] VITALS (10 sets, daily range): BP systolic 55–145; BP diastolic 33–100; PULSE 84; BMI 32.9
[2025-01-24 04:49] LABS: Hematocrit 36.3 % (37.0-47.0); Hemoglobin 11.6 g/dL (12.0-16.0); Mean Corpuscular Hgb 33.4 pg (27.0-31.0); Mean Corpuscular Volume 104.6 fL (81.0-99.0); Mean Platelet Volume 9.4 fL (7.4-10.4); Platelet Count 153 10^3/uL (130-400); Red Blood Cell Count 3.47 10^6/uL (4.20-5.40); Red Cell Dist. Width 16.9 % (11.5-14.5); White Blood Cell Count 8.6 10^3/uL (4.8-10.8)
[2025-01-24 05:10] LABS: Blood Urea Nitrogen 80 mg/dl (7-17); Calcium 9.5 mg/dl (8.4-10.2); Carbon Dioxide 32 mmol/L (22-30); Chloride 96 mmol/L (98-107); Estimated Creatinine Clearance 20 ml/min; Glucose 257 mg/dl (70-99); Magnesium 2.2 mg/dl (1.6-2.3); Potassium 3.8 mmol/L (3.5-5.1); Sodium 139 mmol/L (135-145); eGFR 23.73
[2025-01-24] MEDS: SYNTHROID 125 MCG PO (06:12)
[2025-01-24] MEDS: ELIQUIS 2.5 MG PO ×2 (07:32→20:49)
[2025-01-24] MEDS: TOPROL XL 25 MG PO ×2 (07:32→20:49)
[2025-01-24] MEDS: LASIX 80 MG IV ×2 (07:33→16:44)
[2025-01-24 08:08] LABS: Glucose - Point of Care 237 mg/dl (70-99)
--- NOTE | 2025-01-24 08:25 | PTCARENOTE ---
Patient received from shift supervisor. Patient resting comfortably in bed, calming yelling out for her . Patient was quickly reoriented and calm without yelling out after that. AAOx1-2 little lost on time, VSS. Patient was supposed to wear
CPAP overnight but refused and apparently was a little aggressive. Maintained on N/C overnight. No complaints of pain. Currently on 2L N/C, will attempt to wean. Still receiving Lasix BID. No testing ordered at this time. Call daily in reach.
[2025-01-24] MEDS: STERILE WATER FOR INJECTION 10 ML IV (08:33)
[2025-01-24] MEDS: NOVOLOG FLEXPEN-LOW RESISTANCE 2 UNITS SC ×2 (08:33→16:50)
[2025-01-24] MEDS: ROCEPHIN 1000 MG IV (08:33)
--- NOTE | 2025-01-24 12:01 | CM ---
Patient seen at bedside with sonJonn and patient . Patient answered initial assessment questions and reports everything is the same since patient was here last time. Patient stated that she lives with her , has a commode, wheelchair
for assistance getting into bed, and home oxygen. Patient son Jonn confirmed that his mother still has home health aides through [phone]/fax [phone] [place] nurses who come several days a week. Jonn reports family are with his mother
the days that are not covered by aides. Patient confirmed that PCP is Dr. Rockwell, and they use the pharmacy [facility]. Patient family denied any intrest in SNF placement and plan is to return to home with aides/family supports.
Patient continues with Palliative care. Patient has had [facility] also in the past for PT/OT. CM will continue to follow for discharge planning needs.
Plan; home with home health aides, watch for VN recommendations, continue in palliative care.
[2025-01-24 12:07] LABS: Glucose - Point of Care 331 mg/dl (70-99)
[2025-01-24] MEDS: NOVOLOG FLEXPEN-LOW RESISTANCE 4 UNITS SC (13:29)
--- NOTE | 2025-01-24 13:58 | W.PN.HOSP.TC ---
Today's Communication/Plan
-
Assessment / Plan
Assessment / Plan
Evidence of conversational dyspnea
Scleral Anicteric
MMM
No JVD
CTABL
RRR, S1/S2
Soft, NT, ND, BS+
Warm, Dry
AAOx3, bilaterally 4/5 motor strength in lower and upper extremities, weak equal construction craft laborer strength in upper extremities, weak dorsiflexion plantarflexion bilaterally
Calm
Toxic metabolic encephalopathy
-Resolving
-Suspect secondary to slightly elevated creatinine leading to delayed drug metabolism and excretion in the setting of gabapentin and CBD Gummies and Cymbalta
-Additionally per family noted poor p.o. intake therefore cannot exclude dehydration especially in the setting of creat of 2.2 baseline of 1.7-1.9 less than 1 year ago
-Since there is no focal neurological deficits hold off on MRI however was already obtained. Did not show any acute changes
Acute on chronic hypoxemic respiratory failure at baseline uses nocturnal O2/CPAP
-Wean oxygen as tolerated
-IV diuresis
Acute on chronic HFpEF exacerbation, NYHA class III-IV
-IV diuresis
-Wean oxygen
-Monitor urinary output
-Daily weights
-Repeat BMP in the a.m., keep K greater than 4 magnesium greater than 2
AMANDA, unclear if this is CKD or truly new AMANDA with potential renal vein congestion
Will repeat BMP a.m.
Monitor urinary output
Bladder scan
If getting worse consult nephrology
Avoid nephrotoxins
Avoid hypotension
UTI, recently diagnosed as outpatient was on cephalexin
Continue Rocephin for now
DM type II
Sliding scale insulin for now
Hyperlipidemia
Continue statin
SCOTT
Continue CPAP at 10
Hypertension
Continue antihypertensives
A-fib s/p ablation and PPM
Continue Eliquis
Hypothyroidism
Continue levothyroxine
Anticipated Discharge: 24 - 48 hours
Subjective/Interval History
-
Date of Service: January 24, 2025
Seen and examined. Son at bedside. No new complaints. No acute overnight events.
States that she wants to go home today.
Objective Data
-
Labs:
Laboratory Results
01/24/25
04:23
WBC 8.6
Hgb 11.6 L
Hct 36.3 L
Plt Count 153
Sodium 139
Potassium 3.8
Chloride 96 L
Carbon Dioxide 32 H
BUN 80 H
Creatinine 2.0 H
Glucose 257 H
Calcium 9.5
Vital Signs:
Vital Signs
Temp Pulse Resp BP Pulse Ox
97.9 F 70 15 126/90 95
01/24/25 11:20 01/24/25 07:32 01/24/25 06:17 01/24/25 07:32 01/24/25 10:05
I&O
01/23/25 01/24/25 01/25/25
06:59 06:59 06:59
Intake Total 240 / 240 360 / 360
Output Total 450 / 450 800 / 800
Balance -210 / -210 -440 / -440
--- NOTE | 2025-01-24 14:37 | W.PN.CARDCBS ---
Today's Communication / Plan
-
Continue IV diuresis
Follow input/output and daily weights
Replete electrolytes
Physical therapy
Continue to follow neurologic status
Impression / Plan
-
PCP:
Agricultural Produce Sorter: Dr. Santa Yen
Impression:
Acute on chronic heart failure with preserved ejection fraction and volume overload
TME/unresponsive
Permanent atrial fibrillation
Intolerant to Amiodarone due to possible lung toxicity d/josé 09/2021
Chronic OAC with Eliquis
s/p AV node ablation 03/01/2023
Sick sinus syndrome
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
COPD
CKD 3b
Chronic anemia
Hypertension
Hyperlipidemia
Hypothyroidism
Diabetes type 2
Obstructive sleep apnea
Malignant melanoma
Basal cell carcinoma
GERD
WESTLEY
Duodenal ulcer
Retroperitoneal lymphadenopathy
Spinal stenosis
Osteoarthritis
History of type II VT in setting of GI bleed 06/2020
Dementia
Chronic UTIs
Lexiscan nuclear stress test 07/30/2019:�EKG inconclusive, dyspnea reported, perfusion images normal, EF 65%
ECHO 08/08/21:�EF 60-65%, mild cLVH, stage 2 diastolic dysfunction, posterior MAC, mild MR, mod dilated LA, trace AR
ECHO 03/21/21:�EF 65-70%, mild concentric LVH, stage I diastolic dysfunction, thickened and the leaflets, mild MR, pericardial fat pad present
Echo 02/28/2023: EF 60-65%, mild cLVH, mild MR, aortic sclerosis without stenosis, trace AR, mild TR, estimated PAP 45 mmHg, pleural effusion present.
Echo 01/23/2025: Left ventricular ejection fraction 60%. Normal right ventricle. Aortic valve sclerosis. Moderate TR. PA pressure 55 to 60 mmHg.
Plan:
She has been having some increased volume and increasing shortness of breath at home. Zaroxolyn was taken x 1 as needed last week without improvement in 24 hours. She had an episode of unresponsiveness that was prolonged in the setting of volume
overload, perhaps taking extra zolpidem, also taking usual cannabis Gummies and not tolerating well sleep apnea apparatus. In addition her glucose was low. She also was completing treatment for UTI. She is fatigued today but doing better overall
and diuresing well. Dry weight is usually 168 pounds. Of note as an outpatient she was eating high sodium foods.
Acute on chronic heart failure with preserved ejection fraction w/ proBNP elevated at 14,500.
Continue aggressive IV diuresis. Currently on Lasix IV 80mg BID (baseline 40 mg Lasix twice daily with occasional metolazone as needed).
Weight has decreased 8 pounds since admission
Follow input/output/daily weights
Replete electrolytes
Heart failure consult-needs reeducation on diet
Physical therapy
TME/unresponsiveness
Multifactorial and in part related to overmedication especially with sleeping agents with chronic illness, sleep apnea, low sugar. Continue to maximize
They will speak with pulmonary regarding sleep apnea mask and in the meantime use home oxygen
Mentation improving throughout the day today. Head CT without acute intracranial abnormality. Brain MRI without acute abnormality
Limit polypharmacy as able
Discontinue zolpidem
Chronic renal insufficiency
Some azotemia noted BUN 80 which is stable/slightly lower than yesterday. Chronic renal insufficiency with creatinine likely at baseline 2.0
Continue to follow
Continue treatment of UTI per primary service.
Non-VT troponin elevation
Troponins always mildly elevated and continued to be flat likely related to acute decompensated heart failure with preserved ejection fraction and CKD
No segmental wall motion abnormality
Continue conservative management
Continue treatment of hyperlipidemia
Atrial fibrillation
Pacemaker and AVJ ablation stable.
Continue Eliquis 2.5mg BID and Toprol 25mg BID.
She is on palliative care as an outpatient
I spent 31 minutes critical care time evaluating volume overload and discussing plans at length with family at the bedside.
HPI: Eileen is an 89 year old female with PMH of persistent atrial fibrillation s/p AV node ablation and PPM implant 02/2023, chronic HFpEF, COPD, CKD, chronic anemia, HTN, HLD, hypothyroidism, DM2, SCOTT, GERD, WESTLEY, spinal stenosis, and chronic UTIs
who presented to [facility] for evaluation after she was noted to be unresponsive 01/22. Family had called the cardiology office 01/21 noting weight gain of 6lbs despite giving a dose of metolazone the day before. Plan was to follow weights another day, so
they called back 01/22 but patient was too unsteady to stand on the scale. went back later in to check on patient and she was unresponsive. Her blood sugar was 74, so he tried to give her orange juice, but this did not help, so EMS was
called. Of note, a few days prior to this she was started on antibiotics for suspected UTI. Son was concerned that patient may have accidentally taken too much ambien. In ER, she was noted to be in acute heart failure with proBNP 14,500. Head CT was
without acute intracranial abnormality, but she remained somewhat lethargic and confused, but has been improving throughout the day today. CXR consistent with heart failure. Medtronic [employer] showed no arrhythmias since last device check
01/14. Covid and flu testing negative. UA unremarkable, but patient has been maintained on abx. Otherwise labwork appeared at baseline. She was admitted with altered mental status and acute heart failure. Cardiology consulted for evaluation.
Progress Note - Agricultural Produce Sorter
Subjective
Date of Service: January 24, 2025
She is sleepy but denies complaints
Objective
Labs:
01/24/25 04:23
01/24/25 04:23
Labs
Hgb 11.6 g/dL (12.0-16.0) L 01/24/25 04:23
Hct 36.3 % (37.0-47.0) L 01/24/25 04:23
Plt Count 153 10^3/uL (130-400) 01/24/25 04:23
PT 18.0 Sec (11.4-14.6) H 01/23/25 01:44
INR 1.43 01/23/25 01:44
APTT 34.9 Sec (23.4-35.0) 01/23/25 01:44
Sodium 139 mmol/L (135-145) 01/24/25 04:23
Potassium 3.8 mmol/L (3.5-5.1) 01/24/25 04:23
BUN 80 mg/dl (7-17) H 01/24/25 04:23
Creatinine 2.0 mg/dL (0.6-1.0) H 01/24/25 04:23
Glucose 257 mg/dl (70-99) H 01/24/25 04:23
Troponins
01/23/25 01/23/25 01/23/25
03:45 04:51 08:32
Troponin I 0.142 H* Cancelled 0.154 H*
01/23/25
18:02
Troponin I 0.146 H*
Vital Signs and I&O:
Vital Signs
Temp Pulse Resp BP Pulse Ox
97.9 F 70 15 126/90 95
01/24/25 11:20 01/24/25 07:32 01/24/25 06:17 01/24/25 07:32 01/24/25 10:05
Vital Signs
Temp Pulse Resp BP Pulse Ox
97.9 F 70 15 126/90 95
01/24/25 11:20 01/24/25 07:32 01/24/25 06:17 01/24/25 07:32 01/24/25 10:05
Intake & Output
01/22/25 01/23/25 01/24/25 01/25/25
06:59 06:59 06:59 06:59
Intake Total 240 / 240 360 / 360
Output Total 450 / 450 800 / 800
Balance -210 / -210 -440 / -440
Physical Exam
Physical Exam
General: Elderly woman sleeping
Heart: Non displaced PMI, RRR, no murmurs, No S3, S4, no rubs.
Lungs: Coarse anterior breath sounds. Oxygen in place
Abdomen: distended.
Extremities: No clubbing, cyanosis +1 edema bilaterally.
Neuro: Sleepy
--- NOTE | 2025-01-24 16:24 | PTCARENOTE ---
Was noted last night that patients family had brought in outside food for patient. Main issue was a [employer] that could impact her accuchecks. Some drinks were noted on bedside table and explained to family members present to please
not bring in outside food and drink unless approved by RN or if they do to please let us know. Told them that it could effect the management of her insulin corrections as well as watching her fluids intake. Family ok and in agreement.
[2025-01-24] MEDS: LIPITOR 40 MG PO (16:47)
[2025-01-24 17:01] LABS: Glucose - Point of Care 248 mg/dl (70-99)
[2025-01-24 21:23] LABS: Glucose - Point of Care 285 mg/dl (70-99)
[2025-01-25] VITALS (11 sets, daily range): BP systolic 98–151; BP diastolic 59–108; PULSE 76; BMI 32.0
[2025-01-25 05:12] LABS: Hematocrit 37.9 % (37.0-47.0); Hemoglobin 12.4 g/dL (12.0-16.0); Mean Corp Hgb Conc. 32.7 g/dL (33.0-37.0); Mean Corpuscular Hgb 33.5 pg (27.0-31.0); Mean Corpuscular Volume 102.4 fL (81.0-99.0); Mean Platelet Volume 9.5 fL (7.4-10.4); Platelet Count 156 10^3/uL (130-400); Red Cell Dist. Width 16.5 % (11.5-14.5); White Blood Cell Count 8.1 10^3/uL (4.8-10.8)
[2025-01-25 05:37] LABS: Blood Urea Nitrogen 78 mg/dl (7-17); Calcium 9.7 mg/dl (8.4-10.2); Carbon Dioxide 35 mmol/L (22-30); Chloride 90 mmol/L (98-107); Estimated Creatinine Clearance 23 ml/min; Glucose 301 mg/dl (70-99); Potassium 3.3 mmol/L (3.5-5.1); Sodium 139 mmol/L (135-145); eGFR 28.84
--- NOTE | 2025-01-25 05:38 | PTCARENOTE ---
Received pt at change of shift. Pt AAOx2; disoriented to time at start of shift; became disoriented to self later in shift. Compliant with CPAP for 3 hours while sleeping. Very forgetful and tearful. Hygiene and oral care provided. Resting in
bed with call daily in reach.
[2025-01-25] MEDS: SYNTHROID 125 MCG PO (05:59)
[2025-01-25] MEDS: KCL 40 MEQ PO (05:59)
[2025-01-25] MEDS: STERILE WATER FOR INJECTION IV (08:07)
[2025-01-25 08:22] LABS: Glucose - Point of Care 295 mg/dl (70-99)
[2025-01-25] MEDS: ELIQUIS 2.5 MG PO ×2 (08:36→21:01)
[2025-01-25] MEDS: LASIX 80 MG IV ×2 (08:36→16:59)
[2025-01-25] MEDS: TOPROL XL 25 MG PO ×2 (08:36→21:01)
[2025-01-25] MEDS: NOVOLOG FLEXPEN-LOW RESISTANCE 3 UNITS SC ×3 (08:37→17:03)
[2025-01-25] MEDS: KCL ELIXIR 40 MEQ PO ×2 (11:09→16:58)
[2025-01-25 12:31] LABS: Glucose - Point of Care 299 mg/dl (70-99)
--- NOTE | 2025-01-25 13:31 | W.PN.CARDCBS ---
Today's Communication / Plan
-
Continue diuresis
Replete electrolytes
Follow creatinine
Physical therapy
Heart failure education
Impression / Plan
-
PCP:
Choker Setter: Dr. Santa Yen
Impression:
Acute on chronic heart failure with preserved ejection fraction and volume overload
TME/unresponsive
Permanent atrial fibrillation
Intolerant to Amiodarone due to possible lung toxicity d/josé 09/2021
Chronic OAC with Eliquis
s/p AV node ablation 03/01/2023
Sick sinus syndrome
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
COPD
CKD 3b
Chronic anemia
Hypertension
Hyperlipidemia
Hypothyroidism
Diabetes type 2
Obstructive sleep apnea
Malignant melanoma
Basal cell carcinoma
GERD
WESTLEY
Duodenal ulcer
Retroperitoneal lymphadenopathy
Spinal stenosis
Osteoarthritis
History of type II OK in setting of GI bleed 06/2020
Dementia
Chronic UTIs
Lexiscan nuclear stress test 07/30/2019:�EKG inconclusive, dyspnea reported, perfusion images normal, EF 65%
ECHO 08/08/21:�EF 60-65%, mild cLVH, stage 2 diastolic dysfunction, posterior MAC, mild MR, mod dilated LA, trace AR
ECHO 03/21/21:�EF 65-70%, mild concentric LVH, stage I diastolic dysfunction, thickened and the leaflets, mild MR, pericardial fat pad present
Echo 02/28/2023: EF 60-65%, mild cLVH, mild MR, aortic sclerosis without stenosis, trace AR, mild TR, estimated PAP 45 mmHg, pleural effusion present.
Echo 01/23/2025: Left ventricular ejection fraction 60%. Normal right ventricle. Aortic valve sclerosis. Moderate TR. PA pressure 55 to 60 mmHg.
Plan:
She is admitted for heart failure with preserved ejection fraction and TME/unresponsiveness along with UTI. Appetites not great today and they are working on this. She is feeling better today. More interactive. Her weight continues to decrease
with diuretic.
She has been having some increased volume and increasing shortness of breath at home. Zaroxolyn was taken x 1 as needed last week without improvement in 24 hours. She had an episode of unresponsiveness that was prolonged in the setting of volume
overload, perhaps taking extra zolpidem, also taking usual cannabis Gummies and not tolerating well sleep apnea apparatus. In addition her glucose was low. She also was completing treatment for UTI. Weight on admission was 188 pounds currently on
175 pounds. Dry weight is usually 168 pounds.
Acute on chronic heart failure with preserved ejection fraction w/ proBNP elevated at 14,500.
Continue IV diuresis. Currently on Lasix IV 80mg BID (baseline 40 mg Lasix twice daily with occasional metolazone as needed).
On discharge given issues with dietary noncompliance at times would increase standing Lasix dosing to 60 mg twice daily
Follow input/output/daily weights
Replete electrolytes
Heart failure consult-needs reeducation on diet
Physical therapy
Have not used SGLT2 inhibitor given frequent urinary related issues and fluctuating creatinine. Similarly would avoid MRA at this time.
Physical therapy
TME/unresponsiveness
Multifactorial and in part related to overmedication especially with sleeping agents with chronic illness, sleep apnea, low sugar. Continue to maximize
They will speak with pulmonary regarding sleep apnea mask and in the meantime use home oxygen
Head CT without acute intracranial abnormality. Brain MRI without acute abnormality
Limit polypharmacy as able
Slept but and was discontinued.
Chronic renal insufficiency
Some azotemia noted BUN continues to improve with diuresis. Chronic renal insufficiency with creatinine continuing to improve and has been near baseline currently at 1.7 on 01/25/2025
Continue to follow
Continue treatment of UTI per primary service.
Non-OK troponin elevation
Troponins always mildly elevated and continued to be flat likely related to acute decompensated heart failure with preserved ejection fraction and CKD
No segmental wall motion abnormality
Continue conservative management
Continue treatment of hyperlipidemia
Atrial fibrillation
Pacemaker and AVJ ablation stable.
Continue Eliquis 2.5mg BID and Toprol 25mg BID.
She is on palliative care as an outpatient
Spoke at length with family at the bedside.
HPI: Eileen is an 89 year old female with PMH of persistent atrial fibrillation s/p AV node ablation and PPM implant 02/2023, chronic HFpEF, COPD, CKD, chronic anemia, HTN, HLD, hypothyroidism, DM2, SCOTT, GERD, WESTLEY, spinal stenosis, and chronic UTIs
who presented to [facility] for evaluation after she was noted to be unresponsive 01/22. Family had called the cardiology office 01/21 noting weight gain of 6lbs despite giving a dose of metolazone the day before. Plan was to follow weights another day, so
they called back 01/22 but patient was too unsteady to stand on the scale. went back later in to check on patient and she was unresponsive. Her blood sugar was 74, so he tried to give her orange juice, but this did not help, so EMS was
called. Of note, a few days prior to this she was started on antibiotics for suspected UTI. Son was concerned that patient may have accidentally taken too much ambien. In ER, she was noted to be in acute heart failure with proBNP 14,500. Head CT was
without acute intracranial abnormality, but she remained somewhat lethargic and confused, but has been improving throughout the day today. CXR consistent with heart failure. Medtronic [employer] showed no arrhythmias since last device check
01/14. Covid and flu testing negative. UA unremarkable, but patient has been maintained on abx. Otherwise labwork appeared at baseline. She was admitted with altered mental status and acute heart failure. Cardiology consulted for evaluation.
Progress Note - Choker Setter
Subjective
Date of Service: January 25, 2025
She denies chest pain, palpitations and dizziness.
Objective
Labs:
01/25/25 04:58
01/25/25 04:58
Labs
Hgb 12.4 g/dL (12.0-16.0) 01/25/25 04:58
Hct 37.9 % (37.0-47.0) 01/25/25 04:58
Plt Count 156 10^3/uL (130-400) 01/25/25 04:58
PT 18.0 Sec (11.4-14.6) H 01/23/25 01:44
INR 1.43 01/23/25 01:44
APTT 34.9 Sec (23.4-35.0) 01/23/25 01:44
Sodium 139 mmol/L (135-145) 01/25/25 04:58
Potassium 3.3 mmol/L (3.5-5.1) L 01/25/25 04:58
BUN 78 mg/dl (7-17) H 01/25/25 04:58
Creatinine 1.7 mg/dL (0.6-1.0) H 01/25/25 04:58
Glucose 301 mg/dl (70-99) H 01/25/25 04:58
Troponins
01/23/25 01/23/25 01/23/25
03:45 04:51 08:32
Troponin I 0.142 H* Cancelled 0.154 H*
01/23/25
18:02
Troponin I 0.146 H*
Vital Signs and I&O:
Vital Signs
Temp Pulse Resp BP Pulse Ox
97.5 F 70 21 129/71 97
01/25/25 07:30 01/25/25 12:00 01/25/25 12:00 01/25/25 11:18 01/25/25 11:52
Vital Signs
Temp Pulse Resp BP Pulse Ox
97.5 F 70 21 129/71 97
01/25/25 07:30 01/25/25 12:00 01/25/25 12:00 01/25/25 11:18 01/25/25 11:52
Intake & Output
01/23/25 01/24/25 01/25/25 01/26/25
06:59 06:59 06:59 06:59
Intake Total 240 / 240 960 / 960
Output Total 450 / 450 2550 / 2550
Balance -210 / -210 -1590 / -1590
Physical Exam
Physical Exam
General: Elderly woman in no acute distress
Heart: Distant heart sounds regular
Lungs: Few crackles at the bases
Extremities: No clubbing, cyanosis trace to +1 edema bilaterally.
Neuro: Grossly nonfocal, awake, aler
--- NOTE | 2025-01-25 15:51 | W.PN.HOSP.TC ---
Today's Communication/Plan
-
IV diuresis
Wean O2
Follow-up electrolyte
Assessment / Plan
Assessment / Plan
Evidence of conversational dyspnea
Scleral Anicteric
MMM
Short thick neck
Bibasilar crackle
RRR, S1/S2
Soft, NT, ND, BS+ abdominal edema improving
Warm, Dry, no peripheral pitting edema noted
AAOx3, bilaterally 4/5 motor strength in lower and upper extremities, weak equal saddle stitcher strength in upper extremities, weak dorsiflexion plantarflexion bilaterally
Calm
Toxic metabolic encephalopathy
-Resolving
-Suspect secondary to slightly elevated creatinine leading to delayed drug metabolism and excretion in the setting of gabapentin and CBD Gummies and Cymbalta
-Additionally per family noted poor p.o. intake therefore cannot exclude dehydration especially in the setting of creat of 2.2 baseline of 1.7-1.9 less than 1 year ago
-Since there is no focal neurological deficits hold off on MRI however was already obtained. Did not show any acute changes
Acute on chronic hypoxemic respiratory failure at baseline uses nocturnal O2/CPAP
-Wean oxygen as tolerated
-IV diuresis
Acute on chronic HFpEF exacerbation, NYHA class III-IV
-IV diuresis
-Wean oxygen
-Monitor urinary output
-Daily weights
-Repeat BMP in the a.m., keep K greater than 4 magnesium greater than 2
AMANDA, likely secondary to cardiorenal syndrome
Will repeat BMP a.m.
Monitor urinary output
Bladder scan
If getting worse consult nephrology
Avoid nephrotoxins
Avoid hypotension
Hypokalemia
Replete
UTI, recently diagnosed as outpatient was on cephalexin
Continue Rocephin for now
DM type II
Sliding scale insulin for now
Hyperlipidemia
Continue statin
SCOTT
Continue CPAP at 10
Hypertension
Continue antihypertensives
A-fib s/p ablation and PPM
Continue Eliquis
Hypothyroidism
Continue levothyroxine
Anticipated Discharge: > 48 hours
Subjective/Interval History
-
Date of Service: January 25, 2025
Seen and examined. No new complaints. No acute overnight events.
Objective Data
-
Labs:
Laboratory Results
01/25/25
04:58
WBC 8.1
Hgb 12.4
Hct 37.9
Plt Count 156
Sodium 139
Potassium 3.3 L
Chloride 90 L
Carbon Dioxide 35 H
BUN 78 H
Creatinine 1.7 H
Glucose 301 H
Calcium 9.7
Vital Signs:
Vital Signs
Temp Pulse Resp BP Pulse Ox
97.5 F 70 21 129/71 97
01/25/25 07:30 01/25/25 12:00 01/25/25 12:00 01/25/25 11:18 01/25/25 14:11
I&O
01/24/25 01/25/25 01/26/25
06:59 06:59 06:59
Intake Total 240 / 240 960 / 960
Output Total 450 / 450 2550 / 2550 900 / 900
Balance -210 / -210 -1590 / -1590 -900 / -900
[2025-01-25] MEDS: LIPITOR 40 MG PO (16:58)
[2025-01-25 17:14] LABS: Glucose - Point of Care 282 mg/dl (70-99)
[2025-01-25 21:59] LABS: Glucose - Point of Care 309 mg/dl (70-99)
--- NOTE | 2025-01-25 23:27 | PTCARENOTE ---
pt received from previous RN. Pt drowsy, arousable to verbal stimuli, following commands. Q4 neuro checks maintained. see documentation on worklist. pt is v paced on monitor. sats 99% on 2L. purwick in use. Assessment as documented. Safe environment
maintained. Call light in reach.
[2025-01-26] VITALS (10 sets, daily range): BP systolic 124–172; BP diastolic 65–100; PULSE 70; BMI 30.7; BMI 31.0
[2025-01-26 05:18] LABS: Hematocrit 36.4 % (37.0-47.0); Hemoglobin 11.8 g/dL (12.0-16.0); Mean Corp Hgb Conc. 32.4 g/dL (33.0-37.0); Mean Corpuscular Hgb 33.4 pg (27.0-31.0); Mean Corpuscular Volume 103.1 fL (81.0-99.0); Mean Platelet Volume 9.3 fL (7.4-10.4); Platelet Count 160 10^3/uL (130-400); Red Blood Cell Count 3.53 10^6/uL (4.20-5.40); Red Cell Dist. Width 16.1 % (11.5-14.5); White Blood Cell Count 9.9 10^3/uL (4.8-10.8)
[2025-01-26] MEDS: SYNTHROID 125 MCG PO (05:25)
[2025-01-26 05:27] LABS: Blood Urea Nitrogen 65 mg/dl (7-17); Calcium 9.7 mg/dl (8.4-10.2); Carbon Dioxide 39 mmol/L (22-30); Chloride 91 mmol/L (98-107); Estimated Creatinine Clearance 24 ml/min; Glucose 275 mg/dl (70-99); Potassium 3.8 mmol/L (3.5-5.1); Sodium 139 mmol/L (135-145); eGFR 31.02
[2025-01-26 08:55] LABS: Glucose - Point of Care 247 mg/dl (70-99)
--- NOTE | 2025-01-26 09:08 | WOUNDNOTE ---
WO RN note: Patient admitted with CHF exacerbation, poor po, recent UTI. Patient lives with family.
See H&P for complete history.
PMH: SCOTT, COPD (o2 at night), CHF, a fib (Eliquis), ablation, pacer, HTN, DM, CKD4, PUD, neuropathy, rectal fistula repair, ROMEL/BSO, laminectomy, Moh's surgery R hand.
Wound Location and type/assessment: Patient admitted with: R hand small granular Moh's wound with small yellow drainage and local macerated skin. Abdominal fold/groin mild MASD. L knee small scabbed abrasion.
Appetite: poor.
Pressure redistribution devices in place: Centrella Pro bed. Patient can turn self in bed.
Plan: R hand dressing changed. Patient turned to R semi side lying position using a foam turning wedge. Heels off bed with air chair cushion.
Will confirm orders with Dr. Anderson and updated RN Barbara.
Care plan to be updated, will sign off. Call if needed.
Recommend follow up with her nitrogen operator.
[2025-01-26] MEDS: NOVOLOG FLEXPEN-LOW RESISTANCE 2 UNITS SC (09:38)
[2025-01-26] MEDS: ELIQUIS 2.5 MG PO (09:39)
[2025-01-26] MEDS: TOPROL XL 25 MG PO (09:39)
[2025-01-26] MEDS: LASIX 80 MG IV ×2 (09:40→14:54)
--- NOTE | 2025-01-26 10:15 | W.PN.HOSP.TC ---
Today's Communication/Plan
-
d/c home with home care
Assessment / Plan
Assessment / Plan
Toxic metabolic encephalopathy - Improved
-Suspected due to decreased clearance of psychoactive medication and medical marijuana use
-MRI brain without any abnormality
-No clear infectious source of UTI/pneumonia/COVID/flu
-No major metabolic derangements of Hypoglycemia/new uremia/natremia
-Continue supportive care
Acute on chronic hypoxemic respiratory failure at baseline uses nocturnal O2/CPAP
-Oxygen requirement close to baseline
-Patient noncompliant with CPAP at home
Acute on chronic HFpEF exacerbation, NYHA class III-IV
- weight is down trended
-Cardiology recommended for patient to be maintained on IV diuretics another 24 to 48 hours although patient family adamant about patient being discharged today
-will increase home dose of lasix 120mg/bid with prn metolazone 1.25mg for HF
AMANDA on CKDIIIB/IV
-improved with diuresis
-Suspected component of cardiorenal syndrome
-Repeat BMP prescription provided
Hypokalemia
-Replete PRN
UTI
- was getting Keflex before admission, finished Rocephin course in hospital
DM type II - Sliding scale insulin for now
Hyperlipidemia - Continue statin
SCOTT - Continue CPAP at 10
Essential Hypertension - Continue antihypertensives
A-fib s/p ablation and PPM - Continue Eliquis
Hypothyroidism - Continue levothyroxine
Eliquis
DNR
More than 30 minutes spent in discharge including
Final examination of the patient
Summarizing hospital stay
Instructions for continuing care to all relevant caregivers
Preparation of discharge records, prescriptions, and referral forms
Total time spent (in minutes): 39 mins
Anticipated Discharge: Today
Subjective/Interval History
-
Date of Service: January 26, 2025
Waking up for medication/meals
Oxygen requirement stable on nasal cannula
No other reported problems
Objective Data
-
Labs:
Laboratory Results
01/26/25
04:18
WBC 9.9
Hgb 11.8 L
Hct 36.4 L
Plt Count 160
Sodium 139
Potassium 3.8
Chloride 91 L
Carbon Dioxide 39 H
BUN 65 H
Creatinine 1.6 H
Glucose 275 H
Calcium 9.7
Vital Signs:
Vital Signs
Temp Pulse Resp BP Pulse Ox
98.4 F 70 16 144/82 97
01/26/25 07:17 01/26/25 04:00 01/26/25 04:00 01/26/25 06:13 01/26/25 04:00
I&O
01/25/25 01/26/25 01/27/25
06:59 06:59 06:59
Intake Total 960 / 960
Output Total 2550 / 2550 1800 / 1800
Balance -1590 / -1590 -1800 / -1800
Review of Systems
-
Unable to obtain full review of systems at this time due to: Dementia and Acuity
Physical Exam
-
General: No Apparent Distress and Comfortable
HEENT: Negative Oxygen
Respiratory: Clear to Auscultation
Cardiac: Regular Rhythm and S1/S2; Negative Murmur or Rub
GI: Soft, Nontender and Nondistended
Musculoskeletal: No Edema
Neuro: Awake, Alert, Oriented, No Motor Deficits and Nonfocal/Grossly Intact
Psych: Calm
[2025-01-26] MEDS: STERILE WATER FOR INJECTION IV (10:38)
--- NOTE | 2025-01-26 11:26 | W.PN.CARDCBS ---
Today's Communication / Plan
-
Continue IV Lasix
Impression / Plan
-
PCP:
Devulcanizer Tender: Dr. Santa Yen
Impression:
Acute on chronic heart failure with preserved ejection fraction and volume overload
TME/unresponsive
Permanent atrial fibrillation
Intolerant to Amiodarone due to possible lung toxicity d/josé 09/2021
Chronic OAC with Eliquis
s/p AV node ablation 03/01/2023
Sick sinus syndrome
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
COPD
CKD 3b
Chronic anemia
Hypertension
Hyperlipidemia
Hypothyroidism
Diabetes type 2
Obstructive sleep apnea
Malignant melanoma
Basal cell carcinoma
GERD
WESTLEY
Duodenal ulcer
Retroperitoneal lymphadenopathy
Spinal stenosis
Osteoarthritis
History of type II UT in setting of GI bleed 06/2020
Dementia
Chronic UTIs
Lexiscan nuclear stress test 07/30/2019:�EKG inconclusive, dyspnea reported, perfusion images normal, EF 65%
ECHO 08/08/21:�EF 60-65%, mild cLVH, stage 2 diastolic dysfunction, posterior MAC, mild MR, mod dilated LA, trace AR
ECHO 03/21/21:�EF 65-70%, mild concentric LVH, stage I diastolic dysfunction, thickened and the leaflets, mild MR, pericardial fat pad present
Echo 02/28/2023: EF 60-65%, mild cLVH, mild MR, aortic sclerosis without stenosis, trace AR, mild TR, estimated PAP 45 mmHg, pleural effusion present.
Echo 01/23/2025: Left ventricular ejection fraction 60%. Normal right ventricle. Aortic valve sclerosis. Moderate TR. PA pressure 55 to 60 mmHg.
Plan:
At this point, she is improved, and weight is down 9.6 kg since admission. Volume status is difficult to assess but I suspect she is still volume overloaded. Will continue IV furosemide.
With CKD 3B and history of UTI she is poor candidate for spironolactone or SGLT2 antagonist.
Hopefully she will be at dry weight over the next 24 to 48 hours and can transition to oral furosemide.
Her cognitive changes are improving but still persists, probably multifactorial, possibly related to hypoglycemia, polypharmacy on baseline cognitive impairment.
Creatinine continues to improve despite IV diuresis. BUN continues to drop as well.
Discussed with family.
HPI: Eileen is an 89 year old female with PMH of persistent atrial fibrillation s/p AV node ablation and PPM implant 02/2023, chronic HFpEF, COPD, CKD, chronic anemia, HTN, HLD, hypothyroidism, DM2, SCOTT, GERD, WESTLEY, spinal stenosis, and chronic UTIs
who presented to [facility] for evaluation after she was noted to be unresponsive 01/22. Family had called the cardiology office 01/21 noting weight gain of 6lbs despite giving a dose of metolazone the day before. Plan was to follow weights another day, so
they called back 01/22 but patient was too unsteady to stand on the scale. went back later in to check on patient and she was unresponsive. Her blood sugar was 74, so he tried to give her orange juice, but this did not help, so EMS was
called. Of note, a few days prior to this she was started on antibiotics for suspected UTI. Son was concerned that patient may have accidentally taken too much ambien. In ER, she was noted to be in acute heart failure with proBNP 14,500. Head CT was
without acute intracranial abnormality, but she remained somewhat lethargic and confused, but has been improving throughout the day today. CXR consistent with heart failure. Medtronic [facility] showed no arrhythmias since last device check
01/14. Covid and flu testing negative. UA unremarkable, but patient has been maintained on abx. Otherwise labwork appeared at baseline. She was admitted with altered mental status and acute heart failure. Cardiology consulted for evaluation.
Progress Note - Devulcanizer Tender
Subjective
Date of Service: January 26, 2025:
89-year-old woman admitted with unresponsiveness on January 22. Patient was initially hypoglycemic, might have had a UTI, may have taken Ambien. On admission, proBNP was 14,500 with evidence of heart failure on exam.
PMH: Permanent atrial fibrillation, AV samm ablation and pacemaker implant in February 2023, chronic HFpEF, COPD, CKD 3B, diabetes, sleep apnea, iron deficiency anemia, peptic ulcer disease, retroperitoneal lymphadenopathy, cognitive impairment, type
II UT, recurrent UTIs, COPD
Currently states she feels vaguely unwell, not terribly short of breath, somewhat confused. Daughter and at bedside.
Meds: Apixaban 2.5 mg twice daily, atorvastatin 40 mg a day, levothyroxine 125 mcg daily, metoprolol ER 25 mg twice daily, furosemide 80 mg IV twice daily
144/82, pulse 70, respirate 16, afebrile, sats 98%, weight is 76.1 kg, if accurate down 3.3 kg, possibly 9.6 kg if accurate from admission, head neck exam unremarkable, volume status difficult to assess, neck veins probably elevated, regular rate
and rhythm, abdomen benign and obese, no edema
Echo 01/23/2025: EF 60%, moderate LVH, normal RV, pacing wire, mild MR, aortic sclerosis, pulmonary artery pressure 55-60, moderate TR
White count 9.9, hemoglobin 11.8, platelets 160 BUN/creatinine 65 and 1.6, potassium 3.8, creatinine was 2.2 on admission, BUN was 78 on admission
Objective
Labs:
01/26/25 04:18
01/26/25 04:18
Labs
Hgb 11.8 g/dL (12.0-16.0) L 01/26/25 04:18
Hct 36.4 % (37.0-47.0) L 01/26/25 04:18
Plt Count 160 10^3/uL (130-400) 01/26/25 04:18
PT 18.0 Sec (11.4-14.6) H 01/23/25 01:44
INR 1.43 01/23/25 01:44
APTT 34.9 Sec (23.4-35.0) 01/23/25 01:44
Sodium 139 mmol/L (135-145) 01/26/25 04:18
Potassium 3.8 mmol/L (3.5-5.1) 01/26/25 04:18
BUN 65 mg/dl (7-17) H 01/26/25 04:18
Creatinine 1.6 mg/dL (0.6-1.0) H 01/26/25 04:18
Glucose 275 mg/dl (70-99) H 01/26/25 04:18
Troponins
01/23/25
18:02
Troponin I 0.146 H*
Vital Signs and I&O:
Vital Signs
Temp Pulse Resp BP Pulse Ox
36.9 C 70 16 144/82 98
01/26/25 07:17 01/26/25 04:00 01/26/25 04:00 01/26/25 06:13 01/26/25 08:09
Vital Signs
Temp Pulse Resp BP Pulse Ox
36.9 C 70 16 144/82 98
01/26/25 07:17 01/26/25 04:00 01/26/25 04:00 01/26/25 06:13 01/26/25 08:09
Intake & Output
01/24/25 01/25/25 01/26/25 01/27/25
07:59 07:59 07:59 07:59
Intake Total 240 / 240 960 / 960
Output Total 450 / 450 2550 / 2550 1800 / 1800
Balance -210 / -210 -1590 / -1590 -1800 / -1800
Physical Exam
Physical Exam
See above
[2025-01-26] MEDS: NOVOLOG FLEXPEN-LOW RESISTANCE 3 UNITS SC (12:21)
[2025-01-26 12:32] LABS: Glucose - Point of Care 260 mg/dl (70-99)
--- NOTE | 2025-01-26 12:44 | PTCARENOTE ---
Pt's son at bedside; agitated that pt is not being discharged. Pt for transfer to tele, stretcher at bedside. Son educated on plan of care; Dr. Anderson notified via TT. Report to receiving RN. Belongings collected from room. Transferred off unit via
stretcher with family at bedside.
--- NOTE | 2025-01-26 13:11 | PTCARENOTE ---
Pt received at 1250 from IM via stretcher. Pt moved from stretcher to bed with assist of 2 using the transfer sheet. Family at bedside and is requesting pt be discharge. Explain to pt's son that nurse will notify provider.
[2025-01-26 13:28] LABS: Glucose - Point of Care 250 mg/dl (70-99)
--- NOTE | 2025-01-26 15:04 | CM ---
Patient with Dx TME, HF. O2 2L. PT/OT Evals pending. Per nursing; confused, assist of 2 for bed mobility.
Met with patient and son Jonn, and caregiver;
son agrees with d/c home today with [facility] for SN/PT/OT.
Jonn requested ambulance transport home saying patient is not ambulatory- informed him will arrange and cannot confirm if ambulance will be covered as son does not want to wait for PT/OT to see his mother. He agrees to pay privately for ambulance
if needed. Confirmed home address and 4 steps at entrance. He did not bring her portable O2 to the hospital.
Spoke with [facility], [facility]; she scheduled patient for 5:30pm transport today.
Referral to [facility] (fax [phone]); [facility]
Plan home today with [facility] by ambulance.
[2025-01-26] MEDS: LIPITOR PO (18:51)
[2025-01-26] MEDS: NOVOLOG FLEXPEN-LOW RESISTANCE SC (18:51)
--- NOTE | 2025-01-27 10:55 | W.HF.CON ---
Heart Failure
- LV Function
Left ventricular function study result: LV Ejection fraction >/= 50%
Ejection Fraction Percentage: 60
- ARNI
Patient already on ARNI: No
Heart Failure ARNI Not Indicated: LV Ejection Fraction >/= 40%
- ACEI/ARB
Patient already on ACEI/ARB: No
Heart Failure ACEI/ARB Not Indicated: LV Ejection Fraction > 40%
- Beta Killian
Patient already on Evidence Based Beta Killian: Yes
- Mineralocorticord Receptor Antagonist
Patient already on MRA: No
Heart Failure MRA Not Indicated: LV Ejection Fraction > 40%
- SGLT-2 Inhibitor
Patient already on SGLT-2 Inhibitor: No
Heart Failure SGLT-2 Inhibitor Contraindication: Patient Refusal (UTI)
- Afib Anticoagulation
Patient already on Anticoagulation for Afib: Yes
- NYHA CHF Classification
NYHA CHF Classification Level: Class III - Symptoms w/ min exertion, interferes w/ nml daily activity
- ACC/AHA Stage
ACC/AHA Stage: Stage C: Symptomatic Heart Failure
--- NOTE | 2025-01-27 16:13 | W.DCSUMMARY ---
Discharge Summary
Discharge Data
Date of Admission: 01/23/25
Date of Discharge: 01/26/25
-
Pending Results: No
Hospital Course
Discharging Physician : Dr Dany Anderson
Disposition : Home with home care
Primary care physician : Dr Jose C Rockwell
Principal Discharge diagnosis :
Toxic metabolic encephalopathy
Acute on chronic diastolic congestive heart failure
Acute on chronic hypoxic respiratory failure
Acute kidney injury on chronic kidney disease stage IIIb
Hypokalemia
Urinary tract infection
Chronic Discharge diagnosis :
Type 2 diabetes mellitus
Hyperlipidemia
Obstructive sleep apnea
Essential hypertension
Atrial fibrillation status post ablation and post pacemaker placement
Hypothyroidism
Hospital Course :
Patient is an 89-year-old male with above-mentioned past medical history was brought into ER after patient was found minimally responsive by spouse. Patient had some decline in health and was felt to have new UTI, for which patient was provided
antibiotic therapy by outpatient physicians. Patient was also noted to having worsening leg swelling and weight gain before the ER presentation.
Toxic metabolic encephalopathy -as mentioned above patient primarily brought in by family after found minimally responsive. Quick evaluation in ER ruled out major metabolic derangement/hypoglycemia/electrolyte imbalances because of encephalopathy.
As mentioned above patient was given oral antibiotic for suspected UTI although UA not highly suggestive of problematic UTI in the hospital. Patient did not have any other infection of pneumonia/COVID/flu. CT head done in ER ruled out any
sinister bleeding problems. A follow-up MRI brain ruled out any stroke. Patient have history of sleep apnea noncompliant with CPAP although blood gas did not show any CO2 narcosis. Patient medication review showing patient on multiple
psychoactive medication and encephalopathy likely due to decreased renal clearance of medication. Gabapentin/Ambien was held and patient had some improvement in encephalopathy symptoms.
Acute on chronic diastolic heart failure, worsening hypoxic respiratory failure -patient also was reported to having weight gain. With worsening hypoxia in ER and other clinical signs suggestive of ongoing heart failure patient was started on IV
diuretics. Cardiology was involved in care. Patient had improvement in weight and initially patient was planned to be kept on IV diuretics for another 24 to 48 hours before discharge. Although patient family adamant about patient being discharged
from hospital and patient was discharged on increased Lasix of 120 mg twice daily.
AMANDA on CKD IIIB - Patient had worsening renal function from baseline. This was felt to be due to heart failure/cardiorenal syndrome. Patient renal function improved to baseline with diuretics.
UTI - Urine culture neg during this stay. Patient finished course of Rocephin in the hospital.
Patient was discharged home with home care.
Important imaging findings :
None
Procedure findings :
None
Discharge Plan
-
Patient Disposition: Home with Home Care
Discharge Diagnosis/Procedures: metabolic encephalopathy, Diastolic HF exacerbation, Acute on chronic Hypoxic resp failure, AMANDA
Condition: Fair
Diet: 2 Gram Sodium, Diabetic, Carb Controlled and Restrict fluids to 48 oz
Activity: As tolerated
Driving Restrictions: No driving
Activity Restrictions/Additional Instructions:
Wound Care Instructions
R hand-clean with saline or soap and water, Vaseline, cover with non stick dressing. Change daily.
Miconazole powder to abdominal/groin folds, affected areas twice a day.
Follow up with your floor space allocator.
Instructions: *[facility] Heart Failure Instructions
Referrals:
Jose C Rockwell MD [Family Provider] - in one week
Prescriptions:
New
furosemide [Lasix] 80 mg tablet
120 mg PO BID 30 Days Qty: 90 1RF
Continued
gabapentin 300 MG capsule
600 mg PO BID
atorvastatin 40 MG tablet
40 mg PO QPM 30 Days Qty: 30 0RF
pantoprazole 40 MG tablet,delayed release (DR/EC)
40 mg PO BID 30 Days Qty: 60 2RF
Eliquis 2.5 MG tablet
2.5 mg PO BID 30 Days Qty: 60 0RF
sennosides [Senokot] 8.6 mg Tablet
8.6 mg PO MOTH
potassium chloride 10 mEq Capsule, Extended Release
20 meq PO DAILY
levothyroxine 125 mcg Tablet
125 mcg PO DAILY
zolpidem 5 mg Tablet
2.5 mg PO HS
Patient Comments:
01/23/25: Filled on 12/19/24 for 90 tablets
insulin aspart U-100 [Novolog FlexPen U-100 Insulin] 100 unit/mL (3 mL) Insulin Pen
0 sliding scale dose SC AC
Rx Instructions:
BS 100-149 = 16 units; 150-199 = 19 units; 200-249 = 21 units; 250-299 = 23 units; 300-349 = 25 units; 350-399 = 27 units; 400+ = 29 units
duloxetine 60 mg Capsule,Delayed Release(Dr/Ec)
60 mg PO HS
metolazone 2.5 mg tablet
1.25 mg PO DAILYPRN PRN (Reason: 4 pounds weight gain)
metoprolol succinate 25 mg Tablet Extended Release 24 Hr
50 mg PO BID
therapeutic multivitamin Tablet
1 tab PO DAILY
nitroglycerin 0.4 mg Tablet, Sublingual
0.4 mg SUBLINGUAL [id number] PRN (Reason: chest pain)
docusate sodium [Colace] 100 mg Capsule
100 mg PO DAILY
Visbiome 112.5 billion cell Capsule
1 cap PO DAILY
cholecalciferol (vitamin D3) [Vitamin D3] 50 mcg (2,000 unit) Tablet
50 mcg PO DAILY
Ellura
36 mg PO DAILY
Discontinued
furosemide [Lasix] 80 mg tablet
40 mg PO BID
cephalexin 250 mg Capsule
250 mg PO TID
Patient Comments:
01/23/25: Family states she started first dose on Sunday. Taking for 5 days total.
Discharge Orders:
Discharge Patient (As Directed); Ordered 01/26/25
Ordered By: Dany Anderson
Discharge Date and Time
Discharge Date/Time: 01/26/25 19:30
Print Language: LATVIAN
== END 2025-01-26 19:30 | disposition home health service (06) | DRG 91 ==
LOC: 3 WEST ACU 07:31
PROVIDERS: Hospitalist; ADMITTING PHYSICIAN Internal Medicine; ATTENDING PHYSICIAN Hospitalist; EMERGENCY PHYSICIAN Student in an Organized Health Care Education/Training Program; FAMILY PHYSICIAN Family Medicine; OTHER PHYSICIAN Internal Medicine Cardiovascular Disease
PROC: 5A09357 Assistance with Respiratory Ventilation, Less than 24 Consecutive Hours, Continuous Positive Airway Pressure (ICD-10-PCS; 2025-01-26)
DX: G92.8 Other toxic encephalopathy (principal); I50.33 Acute on chronic diastolic (congestive) heart failure; J96.21 Acute and chronic respiratory failure with hypoxia; I13.0 Hypertensive heart and chronic kidney disease with heart failure and stage 1 through stage 4 chronic kidney disease, or unspecified chronic kidney disease; I48.21 Permanent atrial fibrillation; N17.9 Acute kidney failure, unspecified; F03.94 Unspecified dementia, unspecified severity, with anxiety; N39.0 Urinary tract infection, site not specified; G47.33 Obstructive sleep apnea (adult) (pediatric); Z66 Do not resuscitate; I25.10 Atherosclerotic heart disease of native coronary artery without angina pectoris; I25.2 Old myocardial infarction; E11.22 Type 2 diabetes mellitus with diabetic chronic kidney disease; E03.9 Hypothyroidism, unspecified; K21.9 Gastro-esophageal reflux disease without esophagitis; J44.9 Chronic obstructive pulmonary disease, unspecified; I70.0 Atherosclerosis of aorta; I49.5 Sick sinus syndrome; Z95.0 Presence of cardiac pacemaker; Z91.199 Patient's noncompliance with other medical treatment and regimen due to unspecified reason; Z91.040 Latex allergy status; Z79.899 Other long term (current) drug therapy; T42.6X5D Adverse effect of other antiepileptic and sedative-hypnotic drugs, subsequent encounter; Z99.81 Dependence on supplemental oxygen; Z88.5 Allergy status to narcotic agent; Z88.1 Allergy status to other antibiotic agents; Z79.4 Long term (current) use of insulin; Z79.01 Long term (current) use of anticoagulants; Z79.890 Hormone replacement therapy; E78.00 Pure hypercholesterolemia, unspecified; R79.89 Other specified abnormal findings of blood chemistry; N18.32 Chronic kidney disease, stage 3b; E87.6 Hypokalemia
CPT/HCPCS: 51701; 70450; 70551; 71045; 80048; 80053; 81003; 82010; 82805; 82962; 83605; 83735; 83880; 84145; 84484; 85025; 85027; 85610; 85652; 85730; 87502; 87811; 93005; 93306; 94660; 96374; 99291

== ENCOUNTER → 2025-03-06 14:20 | Outpatient (REF) | payer MEDICARE, OTHER, SELFPAY ==
[2025-03-06 15:25] LABS: % Basophils 0.6 % (0-2); % Immature Granulocytes 0.3 % (0-0.5); % Lymphocytes 11.5 % (20.5-51.1); % Monocytes 9.6 % (1.7-9.3); Absolute Basophils 0.1 10^3/uL (0-0.2); Absolute Eosinophils 0.2 10^3/uL (0-0.7); Absolute Lymphocytes 0.9 10^3/uL (1.2-3.4); Absolute Monocytes 0.8 10^3/uL (0.1-0.6); Absolute Neutrophils 5.9 10^3/uL (1.4-6.5); Hematocrit 38.2 % (37.0-47.0); Hemoglobin 12.4 g/dL (12.0-16.0); Mean Corp Hgb Conc. 32.5 g/dL (33.0-37.0); Mean Corpuscular Hgb 33.4 pg (27.0-31.0); Mean Platelet Volume 9.4 fL (7.4-10.4); Nucleated Red Blood Cells % 0 %; Platelet Count 163 10^3/uL (130-400); Red Blood Cell Count 3.71 10^6/uL (4.20-5.40); Red Cell Dist. Width 15.8 % (11.5-14.5); White Blood Cell Count 7.9 10^3/uL (4.8-10.8)
[2025-03-06 15:52] LABS: ALT (SGPT) 14 U/L (0-35); AST (SGOT) 20 U/L (14-36); Alkaline Phosphatase 134 U/L (38-126); Blood Urea Nitrogen 66 mg/dl (7-17); Calcium 9.2 mg/dl (8.4-10.2); Carbon Dioxide 28 mmol/L (22-30); Chloride 97 mmol/L (98-107); Glucose 293 mg/dl (70-99); Potassium 4.6 mmol/L (3.5-5.1); Sodium 138 mmol/L (135-145); Total Bilirubin 0.6 mg/dl (0.2-1.3); Total Protein 7.1 g/dl (6.3-8.2); eGFR 23.59
[2025-03-06 16:07] LABS: Free T4 1.89 ng/dl (0.78-2.19)
[2025-03-06 16:21] LABS: TSH 3.52 uIU/ml (0.47-4.68)
[2025-03-07 08:47] LABS: Glycohemoglobin (HgbA1c) 8.3 % (4.0-5.6)
== END ==
LOC: REG 14:20
PROVIDERS: ATTENDING PHYSICIAN Physician Assistant; FAMILY PHYSICIAN Family Medicine
DX: E11.65 Type 2 diabetes mellitus with hyperglycemia (principal); E03.9 Hypothyroidism, unspecified
CPT/HCPCS: 36415; 80053; 83036; 84439; 84443; 85025

== ENCOUNTER → 2025-03-10 16:33 | Outpatient (REF) | payer MEDICARE, OTHER, SELFPAY ==
[2025-03-10 17:16] LABS: Urine Albumin 1+ (Neg - Trace); Urine Bilirubin Negative (Negative); Urine Character Clear (Clear); Urine Color Yellow; Urine Glucose Negative (Negative); Urine Ketone Negative (Negative); Urine Leukocyte 2+ (Negative); Urine Nitrite Positive (Negative); Urine Occult Blood 1+ (Negative); Urine Urobilinogen Negative (Neg - 1+)
[2025-03-10 17:49] LABS: Urine Bacteria Many (Negative); Urine Red Blood Cell 0-2 /HPF (0-2)
== END ==
LOC: REG 16:33
PROVIDERS: ATTENDING PHYSICIAN Obstetrics & Gynecology; FAMILY PHYSICIAN Family Medicine
DX: N39.0 Urinary tract infection, site not specified (principal)
CPT/HCPCS: 81003; 81015; 87086; 87088; 87186

== ENCOUNTER → 2025-04-08 10:20 | Outpatient (REF) | payer MEDICARE, OTHER, SELFPAY | LOC: REG 10:20 | PROVIDERS: ATTENDING PHYSICIAN Obstetrics & Gynecology; FAMILY PHYSICIAN Family Medicine | DX: N39.0 Urinary tract infection, site not specified (principal) | CPT/HCPCS: 87077; 87086 ==

== ENCOUNTER → 2025-04-30 12:23 | Outpatient (REF) | payer MEDICARE, OTHER, SELFPAY ==
[2025-04-30 14:29] LABS: % Basophils 0.7 % (0-2); % Eosinophils 2.7 % (0-6); % Immature Granulocytes 0.4 % (0-0.5); % Lymphocytes 12.1 % (20.5-51.1); % Monocytes 9.7 % (1.7-9.3); % Neutrophils 74.4 % (42.2-75.2); Absolute Basophils 0.1 10^3/uL (0-0.2); Absolute Eosinophils 0.2 10^3/uL (0-0.7); Absolute Lymphocytes 0.8 10^3/uL (1.2-3.4); Absolute Monocytes 0.7 10^3/uL (0.1-0.6); Absolute Neutrophils 5.1 10^3/uL (1.4-6.5); Hematocrit 36.2 % (37.0-47.0); Hemoglobin 11.8 g/dL (12.0-16.0); Mean Corp Hgb Conc. 32.6 g/dL (33.0-37.0); Mean Corpuscular Hgb 33.9 pg (27.0-31.0); Mean Platelet Volume 9.9 fL (7.4-10.4); Nucleated Red Blood Cells % 0 %; Platelet Count 124 10^3/uL (130-400); Red Blood Cell Count 3.48 10^6/uL (4.20-5.40); Red Cell Dist. Width 16.7 % (11.5-14.5); White Blood Cell Count 6.8 10^3/uL (4.8-10.8)
[2025-04-30 15:01] LABS: ALT (SGPT) 23 U/L (0-35); AST (SGOT) 30 U/L (14-36); Albumin 3.9 g/dl (3.5-5.0); Alkaline Phosphatase 126 U/L (38-126); Blood Urea Nitrogen 66 mg/dl (7-17); Calcium 9.1 mg/dl (8.4-10.2); Carbon Dioxide 30 mmol/L (22-30); Chloride 99 mmol/L (98-107); Glucose 219 mg/dl (70-99); Sodium 138 mmol/L (135-145); Total Bilirubin 0.7 mg/dl (0.2-1.3); Total Protein 7.1 g/dl (6.3-8.2); eGFR 19.94
[2025-04-30 15:07] LABS: NT-proBNP 10900 pg/ml
[2025-04-30 15:33] LABS: TSH 2.37 uIU/ml (0.47-4.68)
[2025-05-02 08:56] LABS: Intact PTH 268.2 pg/ml (13.6-85.8)
== END ==
LOC: REG 12:23
PROVIDERS: ATTENDING PHYSICIAN Obstetrics & Gynecology; FAMILY PHYSICIAN Family Medicine; OTHER PHYSICIAN Internal Medicine Cardiovascular Disease
DX: I50.32 Chronic diastolic (congestive) heart failure (principal); I50.9 Heart failure, unspecified; E78.5 Hyperlipidemia, unspecified; E21.3 Hyperparathyroidism, unspecified; R53.82 Chronic fatigue, unspecified; N39.0 Urinary tract infection, site not specified
CPT/HCPCS: 36415; 80053; 83880; 83970; 84443; 85025; 87086

== ENCOUNTER → 2025-05-19 14:15 | Outpatient (REF) | payer MEDICARE, OTHER, SELFPAY ==
[2025-05-19 15:43] LABS: Blood Urea Nitrogen 70 mg/dl (7-17); Calcium 9.8 mg/dl (8.4-10.2); Carbon Dioxide 30 mmol/L (22-30); Chloride 102 mmol/L (98-107); Glucose 203 mg/dl (70-99); Potassium 3.5 mmol/L (3.5-5.1); Sodium 138 mmol/L (135-145); eGFR 22.25
== END ==
LOC: REG 14:15
PROVIDERS: ATTENDING PHYSICIAN Internal Medicine Cardiovascular Disease; FAMILY PHYSICIAN Family Medicine
DX: I50.32 Chronic diastolic (congestive) heart failure (principal)
CPT/HCPCS: 36415; 80048; 83880

== ENCOUNTER 2025-05-26 01:23 | Inpatient (IN) | payer MEDICARE, OTHER, SELFPAY ==
[2025-05-25 20:03] VITALS: BP 116/65
[2025-05-25 20:42] LABS: Hematocrit 35.3 % (37.0-47.0); Hemoglobin 11.7 g/dL (12.0-16.0); Mean Corp Hgb Conc. 33.1 g/dL (33.0-37.0); Mean Corpuscular Volume 103.2 fL (81.0-99.0); Nucleated Red Blood Cells % 0 %; Platelet Count 119 10^3/uL (130-400); Red Cell Dist. Width 16.0 % (11.5-14.5)
[2025-05-25 21:09] LABS: Troponin I 0.211 ng/ml
[2025-05-25 21:30] VITALS: BP 130/81
[2025-05-25 21:32] VITALS: BMI 31.9
[2025-05-25 22:00] VITALS: BP 119/79
[2025-05-25 22:03] LABS: ALT (SGPT) 17 U/L (0-35); AST (SGOT) 23 U/L (14-36); Albumin 3.9 g/dl (3.5-5.0); Alkaline Phosphatase 132 U/L (38-126); Blood Urea Nitrogen 91 mg/dl (7-17); Calcium 9.0 mg/dl (8.4-10.2); Carbon Dioxide 26 mmol/L (22-30); Chloride 98 mmol/L (98-107); Estimated Creatinine Clearance 16 ml/min; Glucose 264 mg/dl (70-99); Potassium 3.6 mmol/L (3.5-5.1); Sodium 135 mmol/L (135-145); Total Protein 7.3 g/dl (6.3-8.2); eGFR 19.94
--- NOTE | 2025-05-25 22:45 | ED.GENMED ---
History of Present Illness
General
Chief Complaint: Abnormal Lab Value
Source: patient, spouse, family and previous hospital records (Hospitalization January of this year for treatment of TMA as well as acute on chronic CHF, acute on chronic hypoxic respiratory failure, acute kidney injury on chronic kidney disease)
Exam Limitations: none
Time Seen by Provider: 05/25/25 21:56
Nursing documentation reviewed up to this point in time: agreed with
History of Present Illness
History of Present Illness:
This is an 89-year-old woman who resides at home with her . She has extensive past medical history including A-fib chronically maintained on Eliquis, insulin requiring diabetes, chronic heart failure with preserved EF, A-fib
ablation/pacemaker, hypertension, hyperlipidemia, chronic kidney disease stage III-IV, hypothyroidism, spinal stenosis. She also has history of obstructive sleep apnea, since hospitalization January of this year has been compliant with CPAP as well
as nocturnal oxygen.
She follows with Dr. Santa Rubio and has had increased shortness of breath over the past few weeks however daily weights have been relatively stable around 168 pounds.
Chronically maintained on Lasix 80 mg twice daily. Utilizes metolazone intermittently with weight gain or shortness of breath and did have 1 dose of metolazone last week.
Had office visit with Dr. Yen last week, concern for acute on chronic CHF. BNP trending up last week from 10,900 in April to 13,500. Mild uptrend in BUN and creatinine compared to previous. Recommended dietary changes and that 1 dose of
metolazone along with continuing furosemide 80 mg twice daily.
Repeat blood work today showed further uptrend in BNP to 14,100 as well as continued elevation of BUN and creatinine. BUN of 92�baseline appears to run 65-80. Creatinine of 2.3 generally runs 1.6-2.2.
Patient denies chest pain, no cough, no fever, no nausea or vomiting, no abdominal pain, no dysuria, no diarrhea or constipation. No leg pain or swelling.
She is noted to have superficial scratches and abrasions to her right lower leg which family note is related to their dog frequently jumping on her. She was noted to have scant bleeding from her right distal second toe which resolved with a
Band-Aid. There has been no drainage, no redness and according to abrasions of her legs are looking markedly improved.
She has had increased shortness of breath and has been utilizing her oxygen more frequently. According to she is now dependent on oxygen perhaps 50 to 60% of the day.
She has also noted some chronic right shoulder pain, ongoing for a number of months, decreased range of motion of right shoulder. No weakness or numbness. No falls.
Due to continued uptrending BNP, continued shortness of breath Dr. Yen recommended patient come to the ED to be admitted for acute on chronic CHF.
Past History
Past History
ED Past Medical History: Arrthythmia (Atrial fibrillation), CAD, Cancer (malignant melanoma, basal cell carcinoma of the ear), CHF, COPD, GERD, HTN, Hypercholesterolemia, IDDM (Insulin requiring diabetes), NE, Hypothyroidism, Other (insulin pump,
iron deficiency anemia, duodenal ulcer, intra-abdominal lymphadenopathy dating 01/01/14, patient has been vaccinated for COVID-19), Other (polyneuropathy, hyperparathyroidism 2018, osteoarthritis, postherpetic neuralgia) and Other (chronic pain,
glaucoma, diverticulosis, colonic polyposis, vitamin B12 deficiency)
ED Past Surgical History: Cholecystectomy, Gynecological (ROMEL/BSO), Orthopedic (carpal tunnel repair, laminectomy) and Other (cervicalgia with 2 epidural injections, Mohs surgery for basal cell carcinoma of the ear); Negative Bowel resection (rectal
fistulas surgically repaired)
Social History
Tobacco: Non-smoker
Alcohol: None
Drug: None
Personal:
Living: with family
Employment: Retired
Family History
Family History: Other (reviewed and noncontributory)
Phy Exam
Physical Exam
Physical Exam:
GENERAL: 89-year-old woman appears somewhat frail, chronically debilitated. She is awake and alert, pleasant, mild resting tachypnea with nasal cannula oxygen in place. as well as 2 sons are accompanying.
EYE: pupils equal and reactive. anicteric
NECK: Supple, nontender, no meningismus, no significant adenopathy. Mild JVD.
ENT: posterior pharynx is clear, oral mucosa is moist. TM clear b/l, nares patent.
CARDIAC: Regular rate and rhythm. no murmur.
LUNGS: Mild resting tachypnea, fine Rales bilaterally one third of the way up. No rhonchi nor wheezing.
ABDOMEN: Rotund, soft, nondistended, without focal tenderness, normoactive BS.
NEUROLOGICAL: Alert and oriented x3, no focal neuro deficits.
SKIN: Warm and dry, mildly pale in color. Superficial abrasions as well as few scattered petechiae right lower extremity. No bleeding, no drainage and or crusting. No erythema.
MUSCULOSKELETAL: No C/C/E. peripheral pulses are full and equal b/l. There is mild tenderness right anterolateral shoulder with mild fullness of right shoulder. Full passive range of motion of right shoulder but noted to have markedly limited
active abduction of right shoulder. No crepitus. No erythema. No tenderness to the upper arm nor elbow nor forearm. Full elbow, wrist range of motion without difficulty nor pain.
PSYCH: Normal and appropriate interaction.
Scores
Heart Failure Risk
Heart Failure Risk Score: Yes
History of Stroke or TIA: No
History of intubation for respiratory distress: No
Heart rate on ED arrival >/= 110: No
SaO2 <90% on arrival on room air: Yes
HR >/=110 during 3min walk test (or too ill to perform test): Yes
ECG has acute ischemic changes: No
Urea >/=12mmol/L (BUN 33.6mg/dL): Yes
Serum CO2>/=35mmol/L: No
Troponin I or T elevated to NE Level (0.4mg/dL): No
NT-proBNP >/=5,000ng/L (5,000pg/ml): Yes
HF Risk Score: 5
Admission Status: VERY HIGH RISK 39.8% Consider admission to hospital
Course
Orders/Labs/Results
Orders:
Orders
05/25/25 20:09
EKG [Electrocardiogram (*1)] Urgent
Reason for Study: Shortness of Breath
EKG- Treatment ONCE
05/25/25 20:12
Chest [CR Chest - 2 Views ] Urgent
Comment:
Reason For Exam: SOB
05/25/25 20:31
Complete Blood Count/With Diff Urgent
Comprehensive Metabolic Panel Urgent
Troponin I Urgent
05/25/25 22:44
Furosemide [Lasix] 60 mg IV NOW STA
05/25/25 22:58
Shoulder, Right, Trauma [CR Shoulder, Trauma - Right] Urgent
Comment:
Reason For Exam: right shoulder pain, limited ROM
05/26/25 01:12
Admit/Transfer Patient As Directed
Co-Sign Provider:
Level of Care: Inpatient admission
Assign to:: IMU- Intermediate Care
Physician / Group: Jhonny
Diagnosis: CHF
Reason for Hospitalization: CHF
Expected length of stay greater than two midnights?: Yes
ELOS- Estimated Length of Stay in days: 3
I certify the patient meets the requirements for IP care: Yes
PRN Pain Medication Management As Directed
May give lesser potent ordered pain med per pt: Yes
preference::
Protocol:: Medication orders for pain may be administered in a
manner that supports deferring to patient preference
when the pt is:
- Requesting an ordered lesser potent pain medication.
Least to most potent pain medications are defined
as: acetaminophen < NSAID < tramadol < opioids
(morphine, oxycodone, hydromorphone).
- Requesting a lesser dose of the same medication IF
ORDERED.
- Requesting a less intrusive route of administration
if both routes are prescribed by the provider (PO <
IV).
05/26/25 01:14
Code Status As Directed
Resuscitation Status: Do not resuscitate
Based on pt advanced directive or healthcare POA form: Yes
DNR Bracelet Application ONCE
05/26/25 01:23
US Periph Venous LOWER Ext RT Urgent
Comment:
Reason For Exam: Asymmetric edema
05/26/25 02:08
Troponin I Q6H
Acetaminophen [Tylenol] 650 mg PO Q4HPRN PRN
Dextrose 50%-Water [Dextrose 50% Syringe] 12.5 grams IV [id number] PRN
Glucagon [GlucaGen] 1 mg IM PRN PRN
Nitroglycerin Sublingual [Nitrostat (Sublingual)] 0.4 mg SL [id number] PRN
05/26/25 02:08
Echo 2D MMode Doppler [Echo 2D MMode Color/Doppler] Routine
Reason for Study: CHF
CARDIOLOGY CONSULT Routine
Consulting Provider: Devon Stephen
Was physician already notified: No
Reason for consult: CHF
Consult Notification Routine
Specialty to Notify: Cardiology
Activity As Directed
Activity Level: Ambulate
With Assistance
Bedside Glucose Monitoring As Directed
Frequency: AC&HS
Additional Instructions:: Change to q6h if pt on TPN, tube feeding or not eating
EKG with chest pain [ECG as needed] As Directed
ECG as needed for:: Chest Pain
I/O [Intake/ Output] As Directed
Frequency: Per unit guidelines
Vital Signs As Directed
Frequency: Per unit guidelines
Weight As Directed
Frequency: Daily
Cpap [RESP] Routine
Patient to use own unit?: No
Set Pressure (cm H2O): 10
Oxygen Liter Flow: 2
Instructions: HS and PRN
Oxygen Therapy [O2 Therapy] [RESP] Routine
Titrate/Wean O2 to maintain O2 sat greater than (%): 94
Ot Eval And Treat Routine
PT Consult [Pt Eval And Treat] Routine
Activity Level: Ambulate
With Assistance
05/26/25 06:00
EKG [Electrocardiogram (*1)] IN AM
Reason for Study: Chest Pain
2000 calorie (17 carb) Diabetic
At Your Request: Limited Participation
Fluid Restriction: 1440 mL/day (48 oz)
Basic Metabolic Panel IN AM
Complete Blood Count/No Diff IN AM
Glycohemoglobin (HgbA1c) IN AM
Magnesium IN AM
05/26/25 07:30
Insulin Aspart Corrective Low [Novolog Flexpen-Low Resistance] See Protocol SC AC
05/26/25 08:00
Apixaban [Eliquis] 2.5 mg PO BID
Cholecalciferol (Vitamin D3) [VITAMIN D3 (cholecalciferol)] 50 mcg PO DAILY
Docusate Sodium [Colace] 100 mg PO DAILY
Furosemide [Lasix] 80 mg IV BID AT 0800,1600
Gabapentin [Neurontin] 600 mg PO BID
Levothyroxine [Synthroid] 125 mcg PO DAILY
Loratadine [Claritin] 10 mg PO DAILY
Metoprolol Xl [Toprol Xl] 25 mg PO BID
Pantoprazole [Protonix] 40 mg PO BID
Potassium Chloride [KCl] 20 meq PO BID
duloxetine 30 mg PO DAILY
05/26/25 08:08
Troponin I Q6H
05/26/25 14:08
Troponin I Q6H
05/26/25 18:00
Atorvastatin [Lipitor] 40 mg PO QPM
05/26/25 22:00
insulin degludec [Tresiba FlexTouch U-100] 15 unit SC HS
Abnormal Lab Results
05/25/25
20:31
RBC 3.42 L 10^6/uL
(4.20-5.40)
Hgb 11.7 L g/dL
(12.0-16.0)
Hct 35.3 L %
(37.0-47.0)
MCV 103.2 H fL
(81.0-99.0)
MCH 34.2 H pg
(27.0-31.0)
RDW 16.0 H %
(11.5-14.5)
Plt Count 119 L 10^3/uL
(130-400)
Absolute Lymphs (auto) 0.8 L 10^3/uL
(1.2-3.4)
Absolute Monos (auto) 0.8 H 10^3/uL
(0.1-0.6)
Lymphocytes % 10.4 L %
(20.5-51.1)
Monocytes % 10.2 H %
(1.7-9.3)
BUN 91 H mg/dl
(7-17)
Creatinine 2.3 H mg/dL
(0.6-1.0)
Glucose 264 H mg/dl
(70-99)
Alkaline Phosphatase 132 H U/L
(38-126)
Troponin I 0.211 H* ng/ml
05/25/25 20:31
05/25/25 20:31
Vital Signs
Initial and Last Documented VS:
Initial Vital Signs
Temp Pulse Resp BP Pulse Ox
98.4 F 69 20 116/65 99
05/25/25 20:03 05/25/25 20:03 05/25/25 20:03 05/25/25 20:03 05/25/25 20:03
Last Documented Vital Signs
Temp Pulse Resp BP Pulse Ox
98.4 F 73 19 124/79 97
05/25/25 20:03 05/26/25 02:00 05/26/25 02:00 05/26/25 02:00 05/26/25 02:00
MDM/Problems Addressed
Differential Diagnosis Includes:
Outpatient labs reviewed as above.
Concern for acute on chronic CHF.
Concern for acute on chronic hypoxic respiratory failure.
Concern for progression of chronic kidney disease versus acute kidney injury on chronic kidney disease. Concern for progression of cardiorenal disease.
Less likely pneumonia
Chronically maintained on Eliquis and has been compliant, PE is unlikely.
Repeat labs are similar to this morning.
Troponin is elevated 0.211. Certainly some concern for silent ischemia as patient denies chest pain however similar elevated troponins noted previously.
EKG shows ventricular paced rhythm, similar and unchanged from previous January 2025.
She has noted some ongoing right shoulder pain for several months which appears to be musculoskeletal in nature, DJD. She has not had a fall. There is no erythema, nothing to suggest inflammatory nor infectious arthropathy.
Chest x-ray concerning for mild pulmonary edema.
Will check x-ray of right shoulder.
Will give an IV dose of Lasix.
Due to concern for acute on chronic CHF, acute on chronic hypoxemic respiratory failure as well as acute kidney injury, progression of chronic kidney disease patient will require acute hospitalization for further evaluation and management of
multiple complex medical issues.
Chronic conditions affecting care: DM, HTN, Arrhythmia and Kidney disease
*Radiology
Radiology exam reviewed: preliminary read by ED provider (Right shoulder x-ray shows mild to moderate DJD. No fracture. No dislocation.) and radiology read reviewed
*Pulse Oximetry
SaO2: 99
Nasal Cannula flow liters per minute: 2
Patient hypoxic: no
*EKG
Interpreted by ED Provider?: Yes
Comparison EKG: no changes (Unchanged from previous January 2025)
Rate: normal
Rhythm: ventricular paced
*Wire Spinner Interpretation
Rate: normal
Rhythm: ventricular paced
*Critical Care Note
Total Time (30-74mins, 75-104mins- exclusive of procedures): Not Applicable
ED Attending Note
-
Portions of this chart may have been created with voice recognition software.� Occasional wrong word or��sound alike� substitutions may have occurred due to the inherent limitations of voice recognition software.
Discharge Plan
Departure
Patient Disposition: Admit
Date of Disposition: 05/25/25
Time of Disposition: 23:10
Admit to: Telemetry
Admit to doctor: Jhonny
Presentation/result/management discussed w/ accepting MD/DO: Hospitalist
Condition: Fair
Discharge Problem:
Acute on chronic CHF with preserved EF, Acute and chronic respiratory failure with hypoxia, Acute kidney injury superimposed on CKD
Interventions
Interventions:
*Risk Screen - Suicide Last Done: 05/25/25 20:03
*General Assessment Last Done: 05/25/25 20:03
*Neglect/Abuse Screening Last Done: 05/25/25 20:03
*ED COVID-19 Vaccine History Last Done: 05/25/25 20:03
ED- Cardiac Assessment Last Done: 05/25/25 22:30
ED- Pulmonary Assessment Last Done: 05/25/25 22:30
[2025-05-25 22:53] VITALS: BP 122/105
[2025-05-25] MEDS: LASIX 60 MG IV (22:53)
[2025-05-25 23:00] VITALS: BP 124/95
--- NOTE | 2025-05-25 23:00 | EDRN ---
Patient was cleaned up and a purwick in place and lasix given.
[2025-05-26] VITALS (20 sets, daily range): BP systolic 94–169; BP diastolic 64–94; PULSE 73; O2SAT 93–95; BMI 31.9; BMI 31.0
--- NOTE | 2025-05-26 01:16 | HPS.HSE ---
Family Physician
-
Family Physician: Jose C Rockwell
Chief Complaint
-
Abnormal labs
History of Present Illness
Patient is an 89y F with PMH significant for CHF, A-Fib, CKD and DM-II who presents to ED at the direction of her Unemployment Inspector for CHF. Patient has been followed by Cardiology with changes in her diuretic regimen over the past few weeks -
including addition of metolazone to facilitate diuresis. Despite the changes, her BNP has continued to trend upward and patient was advised to present to the hospital for IV diuresis. Patient notes that she is on oxygen at home almost around the
clock. She utilizes CPAP at night. She denies any specific complaints of chest pain, dyspnea, worsening edema, etc.
Her BNP as an outpatient has increased over the past few weeks from 10k to 13k and now 14k despite medication changes.
At the time of my examination, patient is on 6 liters of supplemental oxygen, is sleeping comfortably and is somewhat difficult to arouse.
Medical History
Past Medical History
Past Medical History: Reports Other
Additional Past Medical History:
Chronic HFpEF
Paroxysmal Atrial Fibrillation
Sick Sinus Syndrome s/p PPM
Essential Hypertension
Hyperlipidemia
Diabetes Mellitus, Type II
CKD Stage 4
Hypothyroidism
Peptic Ulcer Disease with hx GI Bleed
Spinal Stenosis
Peripheral Neuropathy
Obstructive Sleep Apnea
Past Surgical History: Reports Other
Additional Past Surgical History:
Rectal Fistula Repair
Cholecystectomy
ROMEL/BSO
Bilateral Carpal Tunnel Release
Laminectomy
Mohs Surgery
Social History
Tobacco: Non-smoker
Alcohol: None
Personal:
Living: With Family
Family History
Family History: Not pertinent
Allergies / Home Medications
Allergies reflects when Allergies were last updated in [facility].
Home Medications with original date entered in [facility]
Allergy/Medication List:
Allergies
Allergy/AdvReac Type Severity Reaction Status Date / Time
erythromycin base Allergy Intermediate Rash Verified 05/25/25 20:08
latex Allergy Intermediate Rash Verified 05/25/25 20:08
Opioids - Morphine Analogues Allergy Intermediate Unknown Verified 05/25/25 20:08
silver sulfadiazine Allergy Intermediate Rash Verified 05/25/25 20:08
Home Medications
gabapentin 300 mg capsule 600 mg PO BID Pain 08/05/21
apixaban 2.5 mg tablet (Eliquis) 2.5 mg PO BID Blood clot prevention/tx 30 days #60 tabs 02/23/22
atorvastatin 40 mg tablet 40 mg PO QPM High cholesterol 30 days #30 tabs 02/23/22
pantoprazole 40 mg tablet,delayed release 40 mg PO BID Gastrointestinal issue 30 days #60 tabs 02/23/22
insulin aspart U-100 100 unit/mL (3 mL) subcutaneous pen (Novolog FlexPen U-100 Insulin aspart) 0 sliding scale dose SC AC Diabetes 10/09/23
levothyroxine 125 mcg tablet 125 mcg PO DAILY Thyroid 10/09/23
potassium chloride 10 mEq capsule,extended release 20 meq PO DAILY Electrolyte Repletion 10/09/23
sennosides 8.6 mg tablet (Senokot) 8.6 mg PO MOTH 10/09/23
Lactobac no.2-Bifidobac no.1-S. thermo 112.5 billion cell capsule (Visbiome) 1 cap PO DAILY 01/23/25
cholecalciferol (vitamin D3) 50 mcg (2,000 unit) tablet (Vitamin D3) 50 mcg PO DAILY 01/23/25
docusate sodium 100 mg capsule (Colace) 100 mg PO DAILY 01/23/25
metoprolol succinate 25 mg tablet,extended release 24 hr 25 mg PO BID 01/23/25
nitroglycerin 0.4 mg sublingual tablet 0.4 mg sublingual [id number] PRN chest pain 01/23/25
therapeutic multivitamin 1 tab PO DAILY 01/23/25
albuterol sulfate 90 mcg/actuation aerosol inhaler 2 puff inhalation Q6H PRN SOB 05/26/25
duloxetine 30 mg capsule,delayed release sprinkle 30 mg PO DAILY 05/26/25
furosemide 80 mg tablet (Lasix) 80 mg PO BID Heart Failure 05/26/25
insulin degludec 100 unit/mL (3 mL) subcutaneous pen (Tresiba FlexTouch U-100 insulin) 15 unit SC HS 05/26/25
loratadine 10 mg tablet 10 mg PO DAILY 05/26/25
metolazone 5 mg tablet 5 mg PO DAILY 05/26/25
Review of Systems
-
History Source: Patient (limited ROS due to somnolence)
A 12 point ROS was completed and negative except as noted: Yes
Respiratory: Denies Trouble Breathing
Cardiac: Denies Chest Pain
Abdomen/GI: Denies Nausea
Musculoskeletal: Denies Edema
Physical Exam
Vital Signs
Vital Signs
Temp Pulse Resp BP Pulse Ox
98.4 F 70 26 124/95 98
05/25/25 20:03 05/25/25 23:35 05/25/25 23:35 05/25/25 23:00 05/25/25 23:35
Physical Exam
General: Other (89y F sleeping comfortably in no distress. Opens eyes to noxious stimuli and follows commands - but falls quickly back to sleep.)
HEENT: Other (Thick neck. No appreciable JVD.)
Respiratory: Other (Bibasilar rales about 1/3 up.)
Cardiac: S1/S2, Regular Rhythm and Murmur (II/ AMA)
GI: Non Tender, Non Distended, Normal Bowel Sounds and Other (Obese)
Musculoskeletal: Other (2+ Edema of the RLE. Excoriations, mild erythema, superficial wounds over the R arroyo. Oozing clear / yellow fluid.)
Laboratory Results
-
05/25/25 20:31
05/25/25 20:31
Laboratory Results
Total Bilirubin 0.7 mg/dl (0.2-1.3) 05/25/25 20:31
AST 23 U/L (14-36) 05/25/25 20:31
ALT 17 U/L (0-35) 05/25/25 20:31
Alkaline Phosphatase 132 U/L (38-126) H 05/25/25 20:31
Troponin I 0.211 ng/ml H* 05/25/25 20:31
Impression/Plan
-
A/P: Patient is an 89y F with PMH significant for CHF, PA-Fib, DM-II and CKD who presents to ED at the direction of her Unemployment Inspector for IV diuresis.
Subacute on Chronic HFpEF
- Admit for further evaluation and treatment.
- IV Lasix 80mg BID for now.
- Follow I/Os, daily weights, etc.
- Cardiology evaluation.
- Update Echo.
RLE Edema
- Potentially due to CHF / potentially exacerbated by excoriations or wounds (from pets per family?) - but given asymmetric edema will check US to rule out DVT.
- Wound care eval for local care recommendations.
Paroxysmal Atrial Fibrillation
- Stable. Continue metoprolol.
- Currently in paced rhythm.
- Continue Eliquis for stroke risk reduction.
Benign Hypertension
- Stable. Continue usual outpatient regimen + IV diuresis.
- Follow for changes.
CKD IV
- Stable. Renal function has been somewhat variable over time - but current value is at / near known baseline.
- Follow for changes with diuresis.
DM-II
- Stable. Continue basal : bolus insulin regimen.
- Follow glucose and cover with SSI as needed.
- Update A1C.
SCOTT on CPAP
Chronic Hypoxemic Respiratory Failure
- On chronic O2 at home.
- Currently somnolent on O2 in the ED.
- O2 significantly decreased. Will begin CPAP as she typically wears at HS.
- Follow for improvement.
- Check ABG if patient not more alert.
Hypothyroidism
- Stable. Continue current T4 supplementation.
- Update TFTs.
GERD
- Stable. Continue BID PPI.
- Prior h/o peptic ulcer / bleed.
DVT Prophylaxis: Check Doppler as noted above. Eliquis.
Code Status: DNR
--- NOTE | 2025-05-26 02:09 | EDRN ---
Patient back from ultrasound and sleeping at this time, call daily in reach, vital signs stable
[2025-05-26 03:19] LABS: Hematocrit 35.4 % (37.0-47.0); Hemoglobin 12.1 g/dL (12.0-16.0); Mean Corp Hgb Conc. 34.2 g/dL (33.0-37.0); Mean Corpuscular Volume 101.1 fL (81.0-99.0); Platelet Count 119 10^3/uL (130-400); Red Cell Dist. Width 15.9 % (11.5-14.5)
[2025-05-26 03:49] LABS: Blood Urea Nitrogen 92 mg/dl (7-17); Calcium 9.3 mg/dl (8.4-10.2); Carbon Dioxide 27 mmol/L (22-30); Chloride 99 mmol/L (98-107); Estimated Creatinine Clearance 16 ml/min; Glucose 195 mg/dl (70-99); Magnesium 2.4 mg/dl (1.6-2.3); Potassium 3.4 mmol/L (3.5-5.1); Sodium 137 mmol/L (135-145); eGFR 19.94
[2025-05-26 04:04] LABS: Troponin I 0.178 ng/ml
[2025-05-26] MEDS: SYNTHROID 125 MCG PO (05:52)
--- NOTE | 2025-05-26 08:15 | VNURNOTE ---
Chart reviewed. Patient is current with VN. Will continue to follow hospital course and DC plans.
[2025-05-26] MEDS: KCL 20 MEQ PO (08:35)
[2025-05-26] MEDS: COLACE 100 MG PO (08:36)
[2025-05-26] MEDS: ELIQUIS 2.5 MG PO (08:36)
[2025-05-26] MEDS: VITAMIN D3 (cholecalciferol) 50 MCG PO (08:36)
[2025-05-26] MEDS: PROTONIX 40 MG PO (08:37)
[2025-05-26] MEDS: CLARITIN 10 MG PO (08:37)
[2025-05-26] MEDS: NEURONTIN 600 MG PO (08:37)
[2025-05-26] MEDS: TOPROL XL 25 MG PO (08:38)
[2025-05-26] MEDS: LASIX 80 MG IV ×2 (08:40→16:21)
[2025-05-26 08:49] LABS: Glucose - Point of Care 208 mg/dl (70-99)
--- NOTE | 2025-05-26 08:54 | WOUNDNOTE ---
R POSTERIOR LOWER LEG
--- NOTE | 2025-05-26 08:55 | WOUNDNOTE ---
R SHOULDER/UPPER ARM
--- NOTE | 2025-05-26 08:57 | WOUNDNOTE ---
[facility] RN note: Patient admitted with CHF exacerbation and renal failure, Patient lives with .
See H&P for complete history.
PMH: SCOTT, COPD (o2 at night), CHF, a fib (Eliquis), ablation, pacer, HTN, DM, CKD4, PUD, neuropathy, rectal fistula repair, ROMEL/BSO, laminectomy, Moh's surgery R hand.
Wound Location and type/assessment: Patient known to service, last seen 01/26/25. Now admitted with what appears to be a rash on R lower leg, foot, hip and upper arm. Patient reports area itches and there are scratch ramirez evident. History in chart
reports trauma wound to R, leg treated with Neosporin and bordered gauze, suspect reaction to Neosporin. Patient turned self, sacrum and heels are intact.
Appetite: Good.
Pressure redistribution devices in place: Can be on Accumax. Patient can turn self in bed.
Plan: Unable to order Benadryl cream for patient, no longer on formulary per pharmacy. Dr. Grijalva aware and will order PO Benadryl if deems necessary after assessing patient.
Updated RN Joe. Care plan to be updated, will sign off. Call if needed.
Recommend follow up with her warp bleaching vat tender if rash does not clear.
[2025-05-26 09:13] LABS: Troponin I 0.156 ng/ml
--- NOTE | 2025-05-26 09:18 | CM ---
Reviewed the chart notes and spoke with the patient and spouse at the bedside. The patient resides with spouse, son and daughter in a two story home with master bedroom on first level. There are four steps to enter home. The patient has a bsc,
wheelchair, home O2 (agency unknow), shower chair, and shower rails. The patient is current with [employer]. Patient has home care consultant daily for eight hours from [employer] ([phone]). The patient's pharmacy of choice is [facility]. CM continues to be available to patient/family and is monitoring medical plan for needs at discharge.
Plan: Discharge back to home with resumption of support services.
[2025-05-26 09:45] LABS: Glycohemoglobin (HgbA1c) 8.5 % (4.0-5.6)
[2025-05-26] MEDS: NOVOLOG FLEXPEN-LOW RESISTANCE 2 UNITS SC (09:51)
[2025-05-26] MEDS: CYMBALTA DELAYED RELEASE 30 MG PO (09:52)
--- NOTE | 2025-05-26 09:57 | CM ---
Reviewed the chart notes and spoke with the patient and spouse at the bedside. The patient resides with her spouse in a two story home with master bedroom on first level. There are four steps to enter home. The patient has a bsc, wheelchair, home
O2 (agency unknow), shower chair, and shower rails. The patient is current with [employer]. Patient has mobile home lot utility worker daily for eight hours from [employer] ([phone]). The patient's pharmacy of choice is [facility].
CM continues to be available to patient/family and is monitoring medical plan for needs at discharge.
Plan: Discharge back to home with resumption of support services.
[2025-05-26 11:16] LABS: Glucose - Point of Care 264 mg/dl (70-99)
[2025-05-26] MEDS: ATARAX 10 MG PO (11:17)
--- NOTE | 2025-05-26 11:42 | W.PN.UPDATE ---
Update Note
Progress Note Update
Seen and examined independent of overnight physician
States feeling little bit better.
States breathing has remained the same.
Spouse at bedside stated discussed with cardiology earlier.
General: Awake, watching TV
HEENT: Other (Thick neck. No appreciable JVD.)
Respiratory: Bilateral rails, nasal cannula noted
Cardiac: S1/S2, Regular Rhythm and Murmur (II/ AMA)
GI: Non Tender, Non Distended, Normal Bowel Sounds and Other (Obese)
Musculoskeletal: Excoriations, mild erythema, superficial wounds over the R arroyo.
Neuro awake alert
Psych calm
A/P: Patient is an 89y F with PMH significant for CHF, PA-Fib, DM-II and CKD who presents to ED at the direction of her Ground Support Agent for IV diuresis.
Subacute on Chronic HFpEF
- IV Lasix 80mg BID for now. Add KCl.
- Follow I/Os, daily weights, etc. requires invasive monitoring.
- Cardiology evaluation.
- Update Echo.
RLE Edema
- Lower extremity Doppler negative for DVT. - Wound care eval for local care recommendations.
Paroxysmal Atrial Fibrillation
- Stable. Continue metoprolol.
- Currently in paced rhythm.
- Continue Eliquis for stroke risk reduction.
Benign Hypertension
- Stable. Continue usual outpatient regimen + IV diuresis.
- Follow for changes.
CKD IV
- Follow for changes with diuresis.
DM-II
- Stable. Continue basal : bolus insulin regimen.
- Follow glucose and cover with SSI as needed.
- Update A1C.
SCOTT on CPAP
Chronic Hypoxemic Respiratory Failure
- On chronic O2 at home.
- Currently somnolent on O2 in the ED.
- O2 significantly decreased. Will begin CPAP as she typically wears at HS.
- Follow for improvement.
- Check ABG if patient not more alert.
Hypothyroidism
- Stable. Continue current T4 supplementation.
- Update TFTs.
GERD
- Stable. Continue BID PPI.
- Prior h/o peptic ulcer / bleed.
Mild erythematous/excoriation noted on lower extremity
Per spouse the rash is improving
Unclear if related to allergies.
Patient denies any tick bites
DVT Prophylaxis: Eliquis
Code Status: DNR
Discussed with patient's spouse at bedside in details.
Okay to downgrade to telemetry
--- NOTE | 2025-05-26 12:05 | CON.CAR ---
Addendum entered and electronically signed by Devon Stephen MD 05/26/25 12:55:
I saw and examined the patient.
The MANAGER MOTOR or PA's note was reviewed and I agree with the note.
Comment: General: Well developed, well nourished in NAD.
Neck: Supple, no JVD, HJR, carotids +2 B/L, no bruits bilaterally.
Heart: Non displaced PMI, RRR, no murmurs, No S3, S4, no rubs.
Lungs: Scattered rhonchi
Extremities: Mild lower extremity edema bilaterally.
Neuro: Grossly nonfocal, awake, alert and oriented x3.
Eileen has a history of chronic diastolic CHF on palliative care in the past, A-fib intolerant to amiodarone due to possible lung toxicity on chronic Eliquis status post AV samm ablation, sick sinus syndrome status post Medtronic pacer, COPD, CKD
3B, anemia, hypertension, hypothyroidism, diabetes, sleep apnea, GERD, duodenal ulcer. She presents with worsening shortness of breath and abdominal bloating as well as elevated proBNP and chest x-ray with evidence of pulmonary edema. She is
reluctant to be admitted but finally agreed.
Will treat with IV Lasix and assess response. Creatinine 2.3 and in the past has ranged between 1.7 and 2.5. Follow renal function with diuresis. Discussed with at bedside.
Original Note:
Consultation
Consultation Request
Date/Time Consultation Performed: 05/26/25
Requesting Provider: Dr. Grijalva
Performing Provider: Jane Raymond PA-C for Dr. Stephen
Reason for Consultation: CHF
Medical History
-
Chief Complaint: SOB
History of Present Illness:
HPI: Eileen is an 89 year old female with PMH of persistent atrial fibrillation s/p AV node ablation and PPM implant 02/2023, chronic HFpEF, COPD, CKD, chronic anemia, HTN, HLD, hypothyroidism, DM2, SCOTT, GERD, WESTLEY, spinal stenosis, and chronic UTIs
who presented to [facility] due to worsening proBNP despite escalation of OP diuretic regimen. She was seen in office 05/20 and received dose of metolazone 05/21 and again 05/22 due to this. Son had then called that repeat labs looked worse and they were
recommended ER assessment. She denies LE edema. Reports some SOB and some abd bloating. Reports she typically uses 2L NC approx 50% of time at home, currently on 3L. CXR with evidence of mild pulm edema.
PMH:
Permanent atrial fibrillation
Intolerant to Amiodarone due to possible lung toxicity d/josé 09/2021
Chronic OAC with Eliquis
s/p AV node ablation 03/01/2023
Chronic HFpEF
Sick sinus syndrome
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
COPD
CKD 3b
Chronic anemia
Hypertension
Hyperlipidemia
Hypothyroidism
Diabetes type 2
Obstructive sleep apnea
Malignant melanoma
Basal cell carcinoma
GERD
WESTLEY
Duodenal ulcer
Retroperitoneal lymphadenopathy
Spinal stenosis
Osteoarthritis
History of type II SD in setting of GI bleed 06/2020
Dementia
Chronic UTIs
Past Medical History
Past Medical History: Other (See HPI)
Past Surgical History: Cardiac (s/p single chamber medtronic PPM 02/20/2023, s/p AV node ablation 03/01/2023), Cholecystectomy, Gynecological (ROMEL/SBO), Orthopedic (Laminectomy) and Other (Carpel tunnel surgery, MOHS on ear, surgical repair of rectal
fistula)
Social History
Tobacco: Non-Smoker
Alcohol: None
Drug: None
Personal:
Living: With Family
Employment: Retired
Family History
Family History: CAD, Cancer, Diabetes and Hypertension
Allergies / Home Medications
Allergy/AdvReac Type Severity Reaction Status Date / Time
erythromycin base Allergy Intermediate Rash Verified 05/25/25 20:08
latex Allergy Intermediate Rash Verified 05/25/25 20:08
Opioids - Morphine Analogues Allergy Intermediate Unknown Verified 05/25/25 20:08
silver sulfadiazine Allergy Intermediate Rash Verified 05/25/25 20:08
�Medication �Instructions �Recorded �Confirmed �Type
gabapentin 300 mg capsule 600 mg PO BID Pain 08/05/21 05/26/25 History
apixaban 2.5 mg tablet (Eliquis) 2.5 mg PO BID Blood clot 02/23/22 05/26/25 Rx
prevention/tx 30 days #60 tabs
atorvastatin 40 mg tablet 40 mg PO QPM High cholesterol 30 02/23/22 05/26/25 Rx
days #30 tabs
pantoprazole 40 mg tablet,delayed 40 mg PO BID Gastrointestinal 02/23/22 05/26/25 Rx
release issue 30 days #60 tabs
insulin aspart U-100 100 unit/mL 0 sliding scale dose SC AC Diabetes 10/09/23 05/26/25 History
(3 mL) subcutaneous pen (Novolog
FlexPen U-100 Insulin aspart)
levothyroxine 125 mcg tablet 125 mcg PO DAILY Thyroid 10/09/23 05/26/25 History
potassium chloride 10 mEq 20 meq PO DAILY Electrolyte 10/09/23 05/26/25 History
capsule,extended release Repletion
sennosides 8.6 mg tablet (Senokot) 8.6 mg PO MOTH 10/09/23 05/26/25 History
Lactobac no.2-Bifidobac no.1-S. 1 cap PO DAILY 01/23/25 05/26/25 History
thermo 112.5 billion cell capsule
(Visbiome)
cholecalciferol (vitamin D3) 50 50 mcg PO DAILY 01/23/25 05/26/25 History
mcg (2,000 unit) tablet (Vitamin
D3)
docusate sodium 100 mg capsule 100 mg PO DAILY 01/23/25 05/26/25 History
(Colace)
metoprolol succinate 25 mg 25 mg PO BID 01/23/25 05/26/25 History
tablet,extended release 24 hr
nitroglycerin 0.4 mg sublingual 0.4 mg sublingual [id number] PRN 01/23/25 05/26/25 History
tablet chest pain
therapeutic multivitamin 1 tab PO DAILY 01/23/25 05/26/25 History
albuterol sulfate 90 mcg/actuation 2 puff inhalation Q6H PRN SOB 05/26/25 05/26/25 History
aerosol inhaler
duloxetine 30 mg capsule,delayed 30 mg PO DAILY 05/26/25 05/26/25 History
release sprinkle
furosemide 80 mg tablet (Lasix) 80 mg PO BID Heart Failure 05/26/25 05/26/25 History
insulin degludec 100 unit/mL (3 15 unit SC HS 05/26/25 05/26/25 History
mL) subcutaneous pen (Tresiba
FlexTouch U-100 insulin)
loratadine 10 mg tablet 10 mg PO DAILY 05/26/25 05/26/25 History
metolazone 5 mg tablet 5 mg PO DAILY 05/26/25 05/26/25 History
Review of Systems
-
History Source: Patient and Family
All other systems: Negative unless noted
Physical Exam
Vital Signs
Temp Pulse Resp BP Pulse Ox
97.6 F 76 19 115/72 92
05/26/25 07:27 05/26/25 10:15 05/26/25 10:15 05/26/25 10:00 05/26/25 06:15
Lab Results
05/26/25 03:12
05/26/25 03:12
Troponin I 0.156 ng/ml H* 05/26/25 08:30
Physical Exam
General: No Apparent Distress, Comfortable and Other (on supp O2)
HEENT: Normocephalic, Anicteric and Moist Mucous Membranes
Respiratory: Crackles (scattered) and Non Labored Respirations
Cardiac: S1/S2 and Regular Rhythm
GI: Soft, Non Tender, Normal Bowel Sounds and Distended (mild)
Musculoskeletal: No Clubbing, No Cyanosis and No Edema
Skin: Warm, Dry and Rash (RLE>LLE)
Neuro: Awake, Alert and Oriented (to self, place)
Impression / Plan
-
Primary Welding Systems And Equipment Repairer: Dr. Santa Yen
Assessment:
Presentation with worsening proBNP
Acute on chronic HFpEF
Elevated troponin, suspected nonischemic myocardial injury
Permanent atrial fibrillation
Intolerant to Amiodarone due to possible lung toxicity d/josé 09/2021
Chronic OAC with Eliquis
s/p AV node ablation 03/01/2023
Sick sinus syndrome
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
COPD
CKD 3b
Chronic anemia
Hypertension
Hyperlipidemia
Hypothyroidism
Diabetes type 2
Obstructive sleep apnea
Malignant melanoma
Basal cell carcinoma
GERD
WESTLEY
Duodenal ulcer
Retroperitoneal lymphadenopathy
Spinal stenosis
Osteoarthritis
History of type II SD in setting of GI bleed 06/2020
Dementia
Chronic UTIs
DNR CODE STATUS
ECHO 01/23/25: TDS, moderate concentric LVH, EF 60%, right-sided device wire present, mild MR, moderate TR, PAP 55 to 60 mmHg
Plan:
- Patient presents due to worsening proBNP as outpatient despite escalation of diuretic therapy
- proBNP 14,400
- Continue IV Lasix 80 mg twice daily, with good urine output this morning. On p.o. Lasix 80 mg p.o. twice daily as outpatient, plus was given metolazone 5 mg on 05/21 and 05/22/2025
- Cr 2.3 today. she has history of CKD and typically develops AMANDA when in acute CHF which improves with diuresis. range Cr 1.7-2.5 in past.
- CHF education. Advised salt and fluid restrictions
- Normally on 2 L nasal cannula about 50% of the time per at bedside. Currently on 3 L, wean as able. Eval for home O2 requirements prior to discharge
- Last echo from 01/2025 as above, will hold off on repeating
- She is not a candidate for SGLT2 inhibitors given chronic UTIs and dementia
- In permanent A-fib status post AVN ablation in 2022. In V paced rhythm by EKG and on review of telemetry. continue toprol
- Continue Eliquis 2.5 mg twice daily
- PT/OT
- Discussed with family at bedside
Data Reviewed
-
EKG: Tracing Personally Visualized and interpreted
Radiology: Report Reviewed by me
Medical Tests (Nuc Med, Echo etc): Report Reviewed by me
Labs: Labs Reviewed by me
Old Records: Reviewed
[2025-05-26] MEDS: NOVOLOG FLEXPEN-LOW RESISTANCE 3 UNITS SC (12:22)
[2025-05-26 13:40] LABS: Glucose - Point of Care 257 mg/dl (70-99)
[2025-05-26 14:24] LABS: Troponin I 0.172 ng/ml
--- NOTE | 2025-05-26 16:57 | PTCARENOTE ---
Received patient at 12:50 from ER AAOx1. Pt confused. Pt oriented to room. Pt tolerated diet. OOB to chair with OT. Pt offered no complaints. Caregiver and family at bedside. 16:40 Report called to 2N and patient transferred to 2131.
[2025-05-26 17:11] LABS: Glucose - Point of Care 358 mg/dl (70-99)
[2025-05-26] MEDS: NOVOLOG FLEXPEN-LOW RESISTANCE 5 UNITS SC (17:25)
[2025-05-26] MEDS: LIPITOR 40 MG PO (17:26)
--- NOTE | 2025-05-26 17:40 | PTCARENOTE ---
Patient transferred from into room 2130. Patient AAOX2, disoriented to time, confused and forgetful, assist x1 to stand and pivot to chair, alarms in place. VSS, POX stable on 3L, accucheck 358, dinner at bedside and insulin administered- see
MAR. Patient's family member states she hasn't seen patient urinate 'all afternoon,' patient bladder scanned by tech for 110ml. Patient and family oriented to room and call daily, state no concerns at this time.
[2025-05-26] MEDS: KCL PO ×2 (21:03→21:37)
[2025-05-26] MEDS: TOPROL XL PO ×2 (21:03→21:38)
[2025-05-26] MEDS: ELIQUIS PO ×2 (21:04→21:37)
[2025-05-26] MEDS: NEURONTIN PO ×2 (21:04→21:37)
[2025-05-26] MEDS: PROTONIX PO ×2 (21:04→21:38)
[2025-05-26 21:20] LABS: Glucose - Point of Care 562 mg/dl (70-99)
[2025-05-26 22:06] LABS: Glucose 286 mg/dl (70-99)
[2025-05-26] MEDS: LANTUS 0.15 UNITS SC (22:37)
[2025-05-26 23:54] LABS: Glucose - Point of Care 249 mg/dl (70-99)
--- NOTE | 2025-05-27 00:15 | PTCARENOTE ---
PT with HS accuchek reading of RR HIGH, STAT venous glucose ordered per hyperglycemia protocol. STAT glucose resulted 286. D/w covering JAVA MANAGER, scheduled Lantus administered as ordered, see MAR, no additional Novolog needed at this time per venous
glucose reading. Repeat accuchek @ 0000 249.
[2025-05-27 03:07] VITALS: BP 124/80
[2025-05-27 05:20] VITALS: BMI 31.2
[2025-05-27] MEDS: SYNTHROID 125 MCG PO (06:18)
[2025-05-27 07:19] VITALS: BP 127/89
[2025-05-27 07:40] LABS: Glucose - Point of Care 265 mg/dl (70-99)
[2025-05-27 09:11] LABS: Hematocrit 36.0 % (37.0-47.0); Hemoglobin 11.8 g/dL (12.0-16.0); Mean Corp Hgb Conc. 32.8 g/dL (33.0-37.0); Mean Corpuscular Volume 103.2 fL (81.0-99.0); Nucleated Red Blood Cells % 0 %; Platelet Count 140 10^3/uL (130-400); Red Cell Dist. Width 16.4 % (11.5-14.5)
[2025-05-27] MEDS: PROTONIX 40 MG PO ×2 (09:15→20:26)
[2025-05-27] MEDS: LASIX 80 MG IV ×2 (09:15→16:01)
[2025-05-27] MEDS: CLARITIN 10 MG PO (09:15)
[2025-05-27] MEDS: VITAMIN D3 (cholecalciferol) 50 MCG PO (09:15)
[2025-05-27] MEDS: TOPROL XL 25 MG PO ×2 (09:15→20:26)
[2025-05-27] MEDS: NEURONTIN 600 MG PO ×2 (09:15→20:26)
[2025-05-27] MEDS: CYMBALTA DELAYED RELEASE 30 MG PO (09:15)
[2025-05-27] MEDS: DESENEX/MITRAZOL/ZEASORB 1 APPLIC TOPICAL ×2 (09:16→20:36)
[2025-05-27] MEDS: KCL 20 MEQ PO ×2 (09:16→20:26)
[2025-05-27] MEDS: ELIQUIS 2.5 MG PO ×2 (09:16→20:26)
[2025-05-27] MEDS: COLACE 100 MG PO (09:16)
[2025-05-27] MEDS: NOVOLOG FLEXPEN-LOW RESISTANCE 3 UNITS SC (09:17)
[2025-05-27 09:27] LABS: Blood Urea Nitrogen 93 mg/dl (7-17); Calcium 9.2 mg/dl (8.4-10.2); Carbon Dioxide 32 mmol/L (22-30); Chloride 97 mmol/L (98-107); Estimated Creatinine Clearance 17 ml/min; Glucose 251 mg/dl (70-99); Potassium 3.4 mmol/L (3.5-5.1); Sodium 137 mmol/L (135-145); eGFR 21.04
[2025-05-27 09:33] LABS: Troponin I 0.206 ng/ml
--- NOTE | 2025-05-27 09:59 | W.PN.CARDCBS ---
Addendum entered and electronically signed by Santa Yen MD 05/27/25 10:13:
Will also check a urinalysis with reflex to culture given history which may be contributing to heart failure exacerbation.
Original Note:
Today's Communication / Plan
-
Data reviewed
Give 1 dose of metolazone 5 mg with next dose of diuretic. Heart failure teaching.
Follow labs.
Impression / Plan
-
Primary Want Ad Supervisor: Dr. Santa Yen
Assessment:
Acute on chronic HFpEF
Presentation with worsening proBNP
Elevated troponin, suspected nonischemic myocardial injury
Permanent atrial fibrillation
Intolerant to Amiodarone due to possible lung toxicity d/josé 09/2021
Chronic OAC with Eliquis
s/p AV node ablation 03/01/2023
Sick sinus syndrome
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
COPD
CKD 3b
Chronic anemia
Hypertension
Hyperlipidemia
Hypothyroidism
Diabetes type 2
Obstructive sleep apnea
Malignant melanoma
Basal cell carcinoma
GERD
WESTLEY
Duodenal ulcer
Retroperitoneal lymphadenopathy
Spinal stenosis
Osteoarthritis
History of type II VT in setting of GI bleed 06/2020
Dementia
Chronic UTIs
DNR CODE STATUS
ECHO 01/23/25: TDS, moderate concentric LVH, EF 60%, right-sided device wire present, mild MR, moderate TR, PAP 55 to 60 mmHg
Acute on chronic HFpEF
Echo 05/26/2025:Normal left ventricular size and function. Moderate concentric left ventricular hypertrophy. LVEF 55-60% by visual assessment. Normal RV. Mild to moderate mitral regurgitation.
Moderate tricuspid regurgitation. Estimated pulmonary artery pressure of 35-40
mmHg. Assuming a right atrial pressure of 3 mmHg.
Compared to prior study dated 01/23/2025, estimated pulmonary systolic pressure
has improved, previously 55-60 mmHg
Plan:
Her is at the bedside. She is feeling better with diuresis clinically. Weights are difficult to follow given mobility related issues.
- Patient presents due to worsening proBNP and BUN as outpatient despite escalation of diuretic therapy in the setting of significant dietary intolerance
- proBNP 14,400
- Will give additional dose of metolazone 5 mg with next dose of diuretic as a one-time dose and follow.
- Heart failure teaching for reinforcement.
- Continue to follow blood work. Primary service replating potassium.
- Echo ordered by primary service noted and reviewed by me. Telemetry reviewed by me and paced rhythm noted.
- Continue IV Lasix 80 mg twice daily, with good urine output. On p.o. Lasix 80 mg p.o. twice daily as outpatient, plus was given metolazone 5 mg on 05/21 and 05/22/2025
- Cr 2.2 today. she has history of CKD and typically develops AMANDA when in acute CHF which improves with diuresis. range Cr 1.7-2.5 in past. BUN without change at 93.
- Normally on 2 L nasal cannula about 50% of the time per at bedside. She uses home oxygen.
- Echo ordered and noted.
- She is not a candidate for SGLT2 inhibitors given chronic UTIs and dementia
- In permanent A-fib status post AVN ablation in 2022. In V paced rhythm by EKG and on review of telemetry. continue toprol
- Continue Eliquis 2.5 mg twice daily
- PT/OT
- Discussed with family at bedside
Progress Note - Want Ad Supervisor
Subjective
Date of Service: May 27, 2025
She feels better and is urinating more. She denies chest pain and palpitations. is at the bedside.
Objective
Labs:
05/27/25 08:54
05/27/25 08:54
Labs
Hgb 11.8 g/dL (12.0-16.0) L 05/27/25 08:54
Hct 36.0 % (37.0-47.0) L 05/27/25 08:54
Plt Count 140 10^3/uL (130-400) 05/27/25 08:54
Sodium 137 mmol/L (135-145) 05/27/25 08:54
Potassium 3.4 mmol/L (3.5-5.1) L 05/27/25 08:54
BUN 93 mg/dl (7-17) H 05/27/25 08:54
Creatinine 2.2 mg/dL (0.6-1.0) H 05/27/25 08:54
Glucose 251 mg/dl (70-99) H 05/27/25 08:54
Troponins
05/25/25 05/26/25 05/26/25
20:31 03:12 08:30
Troponin I 0.211 H* 0.178 H* 0.156 H*
05/26/25 05/27/25
13:47 08:54
Troponin I 0.172 H* 0.206 H*
Vital Signs and I&O:
Vital Signs
Temp Pulse Resp BP Pulse Ox
97.7 F 69 18 127/85 99
05/27/25 07:19 05/27/25 09:15 05/27/25 07:19 05/27/25 09:15 05/27/25 07:19
Vital Signs
Temp Pulse Resp BP Pulse Ox
97.7 F 69 18 127/85 99
05/27/25 07:19 05/27/25 09:15 05/27/25 07:19 05/27/25 09:15 05/27/25 07:19
Intake & Output
05/25/25 05/26/25 05/27/25 05/28/25
06:59 06:59 06:59 06:59
Intake Total 360 / 360
Output Total 1100 / 1100
Balance -740 / -740
Physical Exam
Physical Exam
General: Elderly woman
Neck: Difficult to assess distant heart sounds regular
Lungs: Coarse breath sounds crackles right base
Abdomen mildly-distended.
Extremities: No clubbing, cyanosis or edema bilaterally.
Neuro: Pleasant but with memory loss
--- NOTE | 2025-05-27 10:56 | W.PN.HOSP.TC ---
Today's Communication/Plan
-
PT eval
Continue with IV Lasix with metolazone
Speech therapy evaluation
Wean O2 as tolerated
Assessment / Plan
Assessment / Plan
General: Awake, watching TV
HEENT: Other (Thick neck. No appreciable JVD.)
Respiratory: Bilateral rails, nasal cannula noted
Cardiac: S1/S2, Regular Rhythm and Murmur (II/ AMA)
GI: Non Tender, Non Distended, Normal Bowel Sounds and Other (Obese)
Musculoskeletal: Excoriations, mild erythema, superficial wounds over the R arroyo.
Neuro awake alert
Psych calm
A/P: Patient is an 89y F with PMH significant for CHF, PA-Fib, DM-II and CKD who presents to ED at the direction of her Land Management Supervisor for IV diuresis.
Subacute on Chronic HFpEF
Acute hypoxic respiratory insufficiency secondary to above
- IV Lasix 80mg BID for now. Add KCl. Metolazone added one-time dose.
- Follow I/Os, daily weights, etc. requires invasive monitoring.
- Wean oxygen as tolerated.
- Echo with EF of 55 to 60%. Normal left ventricular size function. Normal regional wall motion motion. Moderate tricuspid regurgitation. PASP 35 to 40 mmHg.
RLE Edema
- Lower extremity Doppler negative for DVT. - Wound care eval for local care recommendations.
Paroxysmal Atrial Fibrillation
- Stable. Continue metoprolol.
- Currently in paced rhythm.
- Continue Eliquis for stroke risk reduction.
Benign Hypertension
- Stable. Continue usual outpatient regimen + IV diuresis.
- Follow for changes.
CKD IV
- Follow for changes with diuresis.
DM-II
- Stable. Continue basal : bolus insulin regimen.
- Follow glucose and cover with SSI as needed.
- Update A1C at 8.5.
SCOTT on CPAP
Chronic Hypoxemic Respiratory Failure
- On chronic O2 at home.
- Currently somnolent on O2 in the ED.
- O2 significantly decreased. Will begin CPAP as she typically wears at HS.
- Follow for improvement.
- Check ABG if patient not more alert.
Hypothyroidism
- Stable. Continue current T4 supplementation.
GERD
- Stable. Continue BID PPI.
- Prior h/o peptic ulcer / bleed.
Mild erythematous/excoriation noted on lower extremity
Per spouse the rash is improving
Unclear if related to allergies.
Patient denies any tick bites
DVT Prophylaxis: Eliquis
Code Status: DNR
Discussed with patient's spouse at bedside in details.
Physical therapy evaluation
Anticipated Discharge: > 48 hours
Subjective/Interval History
-
Date of Service: May 27, 2025
remains on oxygen
states breathing has improved slighlty
Objective Data
-
Labs:
Laboratory Results
05/27/25
08:54
WBC 7.4
Hgb 11.8 L
Hct 36.0 L
Plt Count 140
Sodium 137
Potassium 3.4 L
Chloride 97 L
Carbon Dioxide 32 H
BUN 93 H
Creatinine 2.2 H
Glucose 251 H
Calcium 9.2
Vital Signs:
Vital Signs
Temp Pulse Resp BP Pulse Ox
97.7 F 69 18 127/85 92
05/27/25 07:19 05/27/25 09:15 05/27/25 07:19 05/27/25 09:15 05/27/25 10:37
I&O
05/26/25 05/27/25 05/28/25
06:59 06:59 06:59
Intake Total 360 / 360
Output Total 1100 / 1100
Balance -740 / -740
--- NOTE | 2025-05-27 11:00 | PN.CDI ---
CDI
- -
CDI:
Physician Documentation Request
Admit Date: 05/26/25 01:23
Dear Doctor Valentine,
Patient admitted with subacute on chronic diastolic CHF.
05/27 PN, 'Paroxysmal Atrial Fibrillation....Continue metoprolol..... Continue Eliquis...'
05/27 Cardiology note, 'Permanent atrial fibrillation....Chronic OAC with Eliquis'
Due to potential conflicting documentation, please provide in your note the type of atrial fibrillation present:
Paroxysmal atrial fibrillation - terminates spontaneously or with intervention within 7 days of onset
Permanent atrial fibrillation - when a decision has been made to accept the presence of AF and there is no further attempt to restore or maintain sinus rhythm
Other - please specify
Use of terms such as suspected, likely, concern for, or probable (associated with a specific diagnosis that is being evaluated, monitored, or treated as if it exists) are acceptable and can be coded in the inpatient setting, when documented at the
time of discharge.
Thank you,
Padma DE LUNA,RN,CCDS
CDI Specialist
Available via [place] text
Please use your independent medical judgment in providing your response.
[2025-05-27 11:05] LABS: Urine Character Slightly Cloudy (Clear)
[2025-05-27 11:10] VITALS: BP 132/68
[2025-05-27 11:31] LABS: Urine White Cell 90-100 /HPF (0-5)
--- NOTE | 2025-05-27 11:56 | CM ---
CM following for discharge to home with [facility] and Palliative [facility]. CM contacted by Ani at [facility] who advised that patient was current with them, however with conversation, it was identified that pt chose [facility] and had not been seen in about 6
weeks.
Plan: [facility] and Palliative care to follow at discharge.
[2025-05-27 12:10] LABS: Glucose - Point of Care 306 mg/dl (70-99)
[2025-05-27] MEDS: NOVOLOG FLEXPEN-LOW RESISTANCE 4 UNITS SC ×2 (12:15→17:23)
--- NOTE | 2025-05-27 14:17 | PTOTSP ---
Speech Therapy
Given history of dementia that is more pronounced in hospital setting, pt is at higher risk for s/sx of dysphagia and likely attributed to earlier coughing episode with med pass with liquid. Oralpharyngeal deemed WFL during clinical assessment.
Recommendations:
1. Continue regular solids, thin liquids
2. Pills whole in applesauce
3. Standard aspiration precautions
[2025-05-27 15:05] VITALS: BP 119/60
[2025-05-27] MEDS: ZAROXOLYN 5 MG PO (16:01)
[2025-05-27 16:59] LABS: Glucose - Point of Care 345 mg/dl (70-99)
[2025-05-27] MEDS: LIPITOR 40 MG PO (17:24)
[2025-05-27 19:34] VITALS: BP 131/71
[2025-05-27 20:58] LABS: Glucose - Point of Care 318 mg/dl (70-99)
[2025-05-27] MEDS: LANTUS 0.15 UNITS SC (21:40)
[2025-05-27 23:01] VITALS: BP 128/81
[2025-05-28] VITALS (7 sets, daily range): BP systolic 113–141; BP diastolic 62–75; PULSE 80; BMI 30.6
[2025-05-28] MEDS: MELATONIN 5 MG PO ×2 (00:23→21:39)
[2025-05-28] MEDS: SYNTHROID 125 MCG PO (05:19)
[2025-05-28 07:33] LABS: Glucose - Point of Care 247 mg/dl (70-99)
[2025-05-28 07:44] LABS: Hematocrit 34.3 % (37.0-47.0); Hemoglobin 11.1 g/dL (12.0-16.0); Mean Corp Hgb Conc. 32.4 g/dL (33.0-37.0); Mean Corpuscular Volume 102.4 fL (81.0-99.0); Nucleated Red Blood Cells % 0 %; Platelet Count 120 10^3/uL (130-400); Red Cell Dist. Width 15.9 % (11.5-14.5)
--- NOTE | 2025-05-28 08:01 | W.PN.HOSP.TC ---
Today's Communication/Plan
-
Continue with aggressive diuretics additional dose of potassium
Additional dose of Zaroxolyn
Wean O2 as tolerated
Increase Lantus to 20 units nightly
Assessment / Plan
Assessment / Plan
General: Awake, sitting in recliner, hard of hearing
HEENT: Other (Thick neck. No appreciable JVD.)
Respiratory: Bilateral rails, nasal cannula noted
Cardiac: S1/S2, Regular Rhythm and Murmur (II/ AMA)
GI: Non Tender, Non Distended, Normal Bowel Sounds and Other (Obese)
Musculoskeletal: Excoriations, mild erythema, superficial wounds over the R arroyo.
Neuro awake alert
Psych calm
A/P: Patient is an 89y F with PMH significant for CHF, PA-Fib, DM-II and CKD who presents to ED at the direction of her Resident Services Supervisor for IV diuresis.
Subacute on Chronic HFpEF
Acute hypoxic respiratory insufficiency secondary to above
- IV Lasix 80mg BID for now. Add KCl. Losing weight. Plan for repeat dose of Zaroxolyn. Additional dose of potassium ordered
- Follow I/Os, daily weights, etc. requires invasive monitoring.
- Wean oxygen as tolerated.
- Echo with EF of 55 to 60%. Normal left ventricular size function. Normal regional wall motion motion. Moderate tricuspid regurgitation. PASP 35 to 40 mmHg.
RLE Edema
- Lower extremity Doppler negative for DVT. - Wound care eval for local care recommendations.
Permanent l Atrial Fibrillation
- Stable. Continue metoprolol.
- Currently in paced rhythm.
- Continue Eliquis for stroke risk reduction.
Benign Hypertension
- Stable. Continue usual outpatient regimen + IV diuresis.
- Follow for changes.
CKD IV
- Follow for changes with diuresis.
DM-II
- Stable. POC AM 247. Increase Lantus 20 units nightly
- Follow glucose and cover with SSI as needed.
- Update A1C at 8.5.
SCOTT on CPAP
Chronic Hypoxemic Respiratory Failure
- On chronic O2 at home.
- Currently somnolent on O2 in the ED.
- O2 significantly decreased. Will begin CPAP as she typically wears at HS.
- Follow for improvement.
- Check ABG if patient not more alert.
Hypothyroidism
- Stable. Continue current T4 supplementation.
GERD
- Stable. Continue BID PPI.
- Prior h/o peptic ulcer / bleed.
Mild erythematous/excoriation noted on lower extremity
Per spouse the rash is improving
Unclear if related to allergies.
Patient denies any tick bites
Chronic thrombocytopenia
trend platelets
Suspected mild cognitive impairment
DVT Prophylaxis: Eliquis
Code Status: DNR
Discussed with patient spouse at bedside in details
Anticipated Discharge: > 48 hours
Subjective/Interval History
-
Date of Service: May 28, 2025
states breathing has improved
Remains on 3 L of oxygen
Objective Data
-
Labs:
Laboratory Results
05/28/25
07:06
WBC 6.8
Hgb 11.1 L
Hct 34.3 L
Plt Count 120 L
Sodium Pending
Potassium Pending
Chloride Pending
Carbon Dioxide Pending
BUN Pending
Creatinine Pending
Glucose Pending
Calcium Pending
Vital Signs:
Vital Signs
Temp Pulse Resp BP Pulse Ox
97.7 F 72 18 121/71 98
05/28/25 03:19 05/28/25 03:19 05/28/25 03:19 05/28/25 03:19 05/28/25 03:19
I&O
05/27/25 05/28/25 05/29/25
06:59 06:59 06:59
Intake Total 360 / 360 600 / 600
Output Total 1100 / 1100
Balance -740 / -740 600 / 600
[2025-05-28 08:03] LABS: Blood Urea Nitrogen 100 mg/dl (7-17); Calcium 9.2 mg/dl (8.4-10.2); Carbon Dioxide 29 mmol/L (22-30); Chloride 96 mmol/L (98-107); Estimated Creatinine Clearance 16 ml/min; Glucose 266 mg/dl (70-99); Potassium 3.3 mmol/L (3.5-5.1); Sodium 134 mmol/L (135-145); eGFR 19.94
[2025-05-28] MEDS: NEURONTIN 600 MG PO ×2 (08:47→20:29)
[2025-05-28] MEDS: LASIX 80 MG IV ×2 (08:47→15:59)
[2025-05-28] MEDS: KCL 20 MEQ PO ×4 (08:48→20:31)
[2025-05-28] MEDS: COLACE 100 MG PO (08:48)
[2025-05-28] MEDS: CLARITIN 10 MG PO (08:48)
[2025-05-28] MEDS: VITAMIN D3 (cholecalciferol) 50 MCG PO (08:48)
[2025-05-28] MEDS: TOPROL XL 25 MG PO ×2 (08:49→20:29)
[2025-05-28] MEDS: CYMBALTA DELAYED RELEASE 30 MG PO (08:49)
[2025-05-28] MEDS: ELIQUIS 2.5 MG PO ×2 (08:49→20:29)
[2025-05-28] MEDS: PROTONIX 40 MG PO ×2 (08:49→20:29)
[2025-05-28] MEDS: NOVOLOG FLEXPEN-LOW RESISTANCE 2 UNITS SC (08:51)
[2025-05-28] MEDS: DESENEX/MITRAZOL/ZEASORB 1 APPLIC TOPICAL ×2 (09:02→20:46)
--- NOTE | 2025-05-28 10:06 | W.PN.CARDCBS ---
Addendum entered and electronically signed by Devon Stephen MD 05/28/25 11:25:
I saw and examined the patient.
The PALEOLOGY TEACHER or PA's note was reviewed and I agree with the note.
Comment: General: Well developed, well nourished in NAD.
Neck: Supple, no JVD, HJR, carotids +2 B/L, no bruits bilaterally.
Heart: Non displaced PMI, RRR, no murmurs, No S3, S4, no rubs.
Lungs: Scattered rhonchi
Extremities: No clubbing, cyanosis or edema bilaterally.
Neuro: Grossly nonfocal, awake, alert and oriented x3.
Weight down 3 pounds in the past 24 hours. Creatinine relatively stable at 2.3. Will give Lasix and Zaroxolyn again today. Replete potassium. Try to wean oxygen. Currently on 3 L and was on 2 L at home. Discussed with aide at bedside
Original Note:
Today's Communication / Plan
-
metolazone with IV lasix again today
follow BUN/Cr
replete K
wean supp O2 as able
Impression / Plan
-
Primary Hand Washer: Dr. Santa Yen
Assessment:
Acute on chronic HFpEF
Presentation with worsening proBNP
Elevated troponin, suspected nonischemic myocardial injury
Permanent atrial fibrillation
Intolerant to Amiodarone due to possible lung toxicity d/josé 09/2021
Chronic OAC with Eliquis
s/p AV node ablation 03/01/2023
Sick sinus syndrome
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
COPD
CKD 3b
Chronic anemia
Hypertension
Hyperlipidemia
Hypothyroidism
Diabetes type 2
Obstructive sleep apnea
Malignant melanoma
Basal cell carcinoma
GERD
WESTLEY
Duodenal ulcer
Retroperitoneal lymphadenopathy
Spinal stenosis
Osteoarthritis
History of type II RI in setting of GI bleed 06/2020
Dementia
Chronic UTIs
DNR CODE STATUS
ECHO 01/23/25: TDS, moderate concentric LVH, EF 60%, right-sided device wire present, mild MR, moderate TR, PAP 55 to 60 mmHg
Acute on chronic HFpEF
Echo 05/26/2025: Normal left ventricular size and function. Moderate concentric left ventricular hypertrophy. LVEF 55-60% by visual assessment. Normal RV. Mild to moderate mitral regurgitation.
Moderate tricuspid regurgitation. Estimated pulmonary artery pressure of 35-40
mmHg. Assuming a right atrial pressure of 3 mmHg. Compared to prior study dated 01/23/2025, estimated pulmonary systolic pressure has improved, previously 55-60 mmHg
Plan:
- She feels as though her breathing is improving. Weights if accurate are down overnight. Unclear dry weight as she has mobility issues as an outpatient limiting obtaining weights at home.
- Patient presented due to worsening proBNP and BUN as outpatient despite escalation of diuretic therapy in the setting of significant dietary intolerance
- She received metolazone 5 mg in addition to IV Lasix yesterday. BUN and creatinine relatively stable at 100/2.3.
- Unclear why BUN has significantly increased over the last several months. Would continue to follow
- replete K
- CHF education. patient's at bedside
- Normally on 2 L nasal cannula about 50% of the time per at bedside, wean as able
- Echo with EF normal
- She is not a candidate for SGLT2 inhibitors given chronic UTIs and dementia
- In permanent A-fib status post AVN ablation in 2022. continue toprol. remains in vpaced rhythm on review of tele overnight
- Continue Eliquis 2.5 mg twice daily
- PT/OT
Progress Note - Hand Washer
Subjective
Date of Service: May 28, 2025
reports breathing improving
Objective
Labs:
05/28/25 07:06
05/28/25 07:06
Labs
Hgb 11.1 g/dL (12.0-16.0) L 05/28/25 07:06
Hct 34.3 % (37.0-47.0) L 05/28/25 07:06
Plt Count 120 10^3/uL (130-400) L 05/28/25 07:06
Sodium 134 mmol/L (135-145) L 05/28/25 07:06
Potassium 3.3 mmol/L (3.5-5.1) L 05/28/25 07:06
BUN 100 mg/dl (7-17) H 05/28/25 07:06
Creatinine 2.3 mg/dL (0.6-1.0) H 05/28/25 07:06
Glucose 266 mg/dl (70-99) H 05/28/25 07:06
Troponins
05/25/25 05/26/25 05/26/25
20:31 03:12 08:30
Troponin I 0.211 H* 0.178 H* 0.156 H*
05/26/25 05/27/25
13:47 08:54
Troponin I 0.172 H* 0.206 H*
Vital Signs and I&O:
Vital Signs
Temp Pulse Resp BP Pulse Ox
97.7 F 71 18 141/75 100
05/28/25 07:15 05/28/25 08:47 05/28/25 07:15 05/28/25 08:47 05/28/25 07:15
Vital Signs
Temp Pulse Resp BP Pulse Ox
97.7 F 71 18 141/75 100
05/28/25 07:15 05/28/25 08:47 05/28/25 07:15 05/28/25 08:47 05/28/25 07:15
Intake & Output
05/26/25 05/27/25 05/28/25 05/29/25
07:59 07:59 07:59 07:59
Intake Total 360 / 360 600 / 600
Output Total 500 / 500 600 / 600
Balance -500 / -500 -240 / -240 600 / 600
Physical Exam
Physical Exam
GEN: No distress, awake, alert, oriented x3. sitting in chair. on supp O2
HEENT: supple, anicteric, mmm, eomi
LUNGS: Few crackles B/L bases
CV: Reg, S1/S2, 1/6 murmur
ABD: soft, BS+, NT/ND
EXT: No cyanosis, clubbing. 1+ edema of B/L LE.
NEURO: Gross non-focal
SKIN: Warm, pink, dry. No rash. excoriations of B/L LE R>L
--- NOTE | 2025-05-28 11:07 | CM ---
Reviewed the chart notes. CM continues to be available to patient/family and is monitoring medical plan for needs at discharge.
Plan: Discharge to home with resumption of VN services.
[2025-05-28 12:43] LABS: Glucose - Point of Care 346 mg/dl (70-99)
[2025-05-28] MEDS: NOVOLOG FLEXPEN-LOW RESISTANCE 4 UNITS SC ×2 (13:52→18:19)
[2025-05-28] MEDS: ZAROXOLYN 5 MG PO (15:59)
[2025-05-28 17:16] LABS: Glucose - Point of Care 424 mg/dl (70-99)
[2025-05-28 18:15] LABS: Glucose 346 mg/dl (70-99)
[2025-05-28] MEDS: LIPITOR 40 MG PO (18:19)
[2025-05-28] MEDS: TYLENOL 650 MG PO (21:06)
[2025-05-28 21:12] LABS: Glucose - Point of Care 321 mg/dl (70-99)
[2025-05-28] MEDS: LANTUS 0.2 UNITS SC (21:39)
[2025-05-29] VITALS (7 sets, daily range): BP systolic 93–154; BP diastolic 55–81; PULSE 76; BMI 30.9
[2025-05-29 03:16] LABS: Glucose - Point of Care 272 mg/dl (70-99)
[2025-05-29] MEDS: SYNTHROID 125 MCG PO (04:41)
[2025-05-29 06:27] LABS: Hematocrit 32.2 % (37.0-47.0); Hemoglobin 11.0 g/dL (12.0-16.0); Mean Corp Hgb Conc. 34.2 g/dL (33.0-37.0); Mean Corpuscular Volume 99.7 fL (81.0-99.0); Nucleated Red Blood Cells % 0 %; Platelet Count 128 10^3/uL (130-400); Red Cell Dist. Width 15.4 % (11.5-14.5)
[2025-05-29 06:57] LABS: Blood Urea Nitrogen 103 mg/dl (7-17); Calcium 9.2 mg/dl (8.4-10.2); Carbon Dioxide 28 mmol/L (22-30); Chloride 94 mmol/L (98-107); Estimated Creatinine Clearance 16 ml/min; Glucose 240 mg/dl (70-99); Potassium 4.3 mmol/L (3.5-5.1); Sodium 132 mmol/L (135-145); eGFR 19.94
[2025-05-29 07:48] LABS: Glucose - Point of Care 270 mg/dl (70-99)
[2025-05-29] MEDS: NOVOLOG FLEXPEN-LOW RESISTANCE 3 UNITS SC (08:10)
[2025-05-29] MEDS: PROTONIX 40 MG PO ×2 (08:10→20:26)
[2025-05-29] MEDS: CYMBALTA DELAYED RELEASE 30 MG PO (08:11)
[2025-05-29] MEDS: COLACE 100 MG PO (08:11)
[2025-05-29] MEDS: VITAMIN D3 (cholecalciferol) 50 MCG PO (08:11)
[2025-05-29] MEDS: CLARITIN 10 MG PO (08:11)
[2025-05-29] MEDS: LASIX 80 MG IV ×2 (08:11→15:39)
[2025-05-29] MEDS: ELIQUIS 2.5 MG PO ×2 (08:11→20:25)
[2025-05-29] MEDS: TOPROL XL 25 MG PO ×2 (08:11→20:26)
[2025-05-29] MEDS: NEURONTIN 600 MG PO ×2 (08:12→20:26)
[2025-05-29] MEDS: DESENEX/MITRAZOL/ZEASORB 1 APPLIC TOPICAL ×2 (08:12→20:25)
[2025-05-29] MEDS: KCL 20 MEQ PO ×2 (08:30→20:25)
--- NOTE | 2025-05-29 09:38 | W.PN.HOSP.TC ---
Today's Communication/Plan
-
ceftriaxone
cont diuresis
Assessment / Plan
Assessment / Plan
General: Awake, sitting in recliner, hard of hearing
HEENT: Other (Thick neck. No appreciable JVD.)
Respiratory: Bilateral rails, nasal cannula noted
Cardiac: S1/S2, Regular Rhythm and Murmur (II/ AMA)
GI: Non Tender, Non Distended, Normal Bowel Sounds and Other (Obese)
Musculoskeletal: Excoriations, mild erythema, superficial wounds over the R arroyo.
Neuro awake alert
Psych calm
A/P: Patient is an 89y F with PMH significant for CHF, PA-Fib, DM-II and CKD who presents to ED at the direction of her Temporary Receptionist for IV diuresis.
Subacute on Chronic HFpEF
Acute hypoxic respiratory insufficiency secondary to above
- IV Lasix 80mg BID for now. Add KCl. Losing weight. Plan for repeat dose of Zaroxolyn. Additional dose of potassium ordered
- Follow I/Os, daily weights, etc. requires invasive monitoring.
- Wean oxygen as tolerated.
- Echo with EF of 55 to 60%. Normal left ventricular size function. Normal regional wall motion motion. Moderate tricuspid regurgitation. PASP 35 to 40 mmHg.
RLE Edema
- Lower extremity Doppler negative for DVT. - Wound care eval for local care recommendations.
Permanent l Atrial Fibrillation
- Stable. Continue metoprolol.
- Currently in paced rhythm.
- Continue Eliquis for stroke risk reduction.
Benign Hypertension
- Stable. Continue usual outpatient regimen + IV diuresis.
- Follow for changes.
CKD IV
- Follow for changes with diuresis.
DM-II
- Stable. POC AM 247. Increase Lantus 20 units nightly
- Follow glucose and cover with SSI as needed.
- Update A1C at 8.5.
SCOTT on CPAP
Chronic Hypoxemic Respiratory Failure
- On chronic O2 at home.
- Currently somnolent on O2 in the ED.
- O2 significantly decreased. Will begin CPAP as she typically wears at HS.
- Follow for improvement.
- Check ABG if patient not more alert.
Hypothyroidism
- Stable. Continue current T4 supplementation.
GERD
- Stable. Continue BID PPI.
- Prior h/o peptic ulcer / bleed.
Mild erythematous/excoriation noted on lower extremity
Per spouse the rash is improving
Unclear if related to allergies.
Patient denies any tick bites
Chronic thrombocytopenia
trend platelets
Suspected mild cognitive impairment
DVT Prophylaxis: Eliquis
89yo F with PMHX of dementia, HLD, COPD, SCOTT on CPAP and as needed O2 2L at home, Afib on ELiquis, DM with neuropathy, hypothyroidism, GERD, brought by her with concern for obtundance and hypoxia, found CHF exacerbation and concern for UTI
A/P:
#Acute on chornic HFpEF exacerbation
#Pulmonary HTN
#SCOTT on CPAP
#Chronic hypoxic respiratory failure
COnt O2
DIuresis as per cardio, follow Cr and daily electrolytes, weight
CPAP at night encouraged
#Acute metabolic encephalopathy on baseline unspecified dementia
#Recurrent chronic UTI
most likely /2 hypoxia, cannot exclude UTI as a reason for CHF exacerbation
UCx - GNB
ceftriaxone on 05/29/25
Mentation back to normal as per bedside on 05/29/25
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
cont insulin SS, home insulin, accuchecks, DM diet
#Non-ischemic myocardial injury
2/2 CHF
#Mild chronic alk.phos elevation
possible osteoporosis
follow with pcp
#HLD
#EssentiaL HTN
#COPD, not in exacerbation
#Afib permanent
#SSS s/p PPM
#CKD stage 3b
#Chronic anemia
#Malignant melanoma
#BCC of the skin
#PUD
#Hypothyroidism
#CAD stable
cont home meds
#Mild thrombocytopenia
reactive?
follow with PCP
follow CBC
DVT ppx ELiquis
DNR/DNI
I have spent at least 56min reviewing chart, test results, communication with consultants and providing direct patient care
Code Status: DNR
Discussed with patient spouse at bedside in details
Anticipated Discharge: 24 - 48 hours
Subjective/Interval History
-
Date of Service: May 29, 2025
Objective Data
-
Labs:
Laboratory Results
05/29/25
05:38
WBC 6.9
Hgb 11.0 L
Hct 32.2 L
Plt Count 128 L
Sodium 132 L
Potassium 4.3 D
Chloride 94 L
Carbon Dioxide 28
BUN 103 H*
Creatinine 2.3 H
Glucose 240 H
Calcium 9.2
Vital Signs:
Vital Signs
Temp Pulse Resp BP Pulse Ox
97.5 F 72 16 124/60 97
05/29/25 08:36 05/29/25 08:36 05/29/25 08:36 05/29/25 08:36 05/29/25 08:36
I&O
05/28/25 05/29/25 05/30/25
06:59 06:59 06:59
Intake Total 600 / 600 720 / 720
Balance 600 / 600 720 / 720
Review of Systems
-
Unable to obtain full review of systems at this time due to: Dementia
History Source: Patient
Constitutional: Reports No Symptoms
Physical Exam
-
General: No Apparent Distress
HEENT: Normocephalic
Respiratory: Clear to Auscultation
GI: Soft, Nontender and Nondistended
Musculoskeletal: No Clubbing, No Cyanosis, Edema, Right Lower Extrem and Edema, Left Lower Extrem
Neuro: Awake, Alert, Oriented and AO x 3
Psych: Calm
[2025-05-29] MEDS: ROCEPHIN 1000 MG IV (10:25)
[2025-05-29] MEDS: STERILE WATER FOR INJECTION 10 ML IV (10:25)
[2025-05-29 11:53] LABS: Glucose - Point of Care 325 mg/dl (70-99)
[2025-05-29] MEDS: NOVOLOG FLEXPEN-LOW RESISTANCE SC (12:29)
[2025-05-29] MEDS: NOVOLOG FLEXPEN-HIGH RESISTANCE 10 UNITS SC (12:30)
[2025-05-29] MEDS: BENADRYL 25 MG PO (13:30)
--- NOTE | 2025-05-29 14:47 | W.PN.CARDCBS ---
Addendum entered and electronically signed by Davon Aceves MD 05/29/25 15:07:
I saw and examined the patient.
The Commissioned Sales Associate's note was reviewed and I agree with the note.
Comment:
GEN: No distress, awake, Ox3
HEENT: supple, anicteric, mmm
LUNGS: CTA, no wheezes/rales
CV: Irreg, S1/S2, 1/6 syst LSB, S3+
ABD: soft, BS+, NT, mild distended
EXT: No edema
NEURO: Gross non-focal
SKIN: No rash
PLan:
Weight overall stable. BUN at 103 with creatinine of 2.3. Sodium down to 132.
Had lengthy discussion with the family. I am not sure how much further we can push her diuretics.
Will convert over to Lasix 80 mg p.o. twice daily in a.m. with metolazone 5 mg Sunday and Sunday.
Will need repeat basic metabolic panel in 1 week.
A-fib remains rate controlled. Continue Eliquis and metoprolol.
I suspect she will ready for discharge in AM. Will arrange outpatient follow-up.
Original Note:
Today's Communication / Plan
-
Transition to p.o. Lasix 80 mg twice daily with metolazone 5 mg Sunday in a.m.
BMP/proBNP in 1 week
Wean supplemental oxygen
PT OT
Will arrange outpatient cardiac follow-up
Impression / Plan
-
Primary Director Music: Dr. Santa Yen
Assessment:
Acute on chronic HFpEF
Presentation with worsening proBNP
Elevated troponin, suspected nonischemic myocardial injury
Permanent atrial fibrillation
Intolerant to Amiodarone due to possible lung toxicity d/josé 09/2021
Chronic OAC with Eliquis
s/p AV node ablation 03/01/2023
Sick sinus syndrome
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
COPD
CKD 3b
Chronic anemia
Hypertension
Hyperlipidemia
Hypothyroidism
Diabetes type 2
Obstructive sleep apnea
Malignant melanoma
Basal cell carcinoma
GERD
WESTLEY
Duodenal ulcer
Retroperitoneal lymphadenopathy
Spinal stenosis
Osteoarthritis
History of type II [place] in setting of GI bleed 06/2020
Dementia
Chronic UTIs
DNR CODE STATUS
ECHO 01/23/25: TDS, moderate concentric LVH, EF 60%, right-sided device wire present, mild MR, moderate TR, PAP 55 to 60 mmHg
Acute on chronic HFpEF
Echo 05/26/2025: Normal left ventricular size and function. Moderate concentric left ventricular hypertrophy. LVEF 55-60% by visual assessment. Normal RV. Mild to moderate mitral regurgitation.
Moderate tricuspid regurgitation. Estimated pulmonary artery pressure of 35-40
mmHg. Assuming a right atrial pressure of 3 mmHg. Compared to prior study dated 01/23/2025, estimated pulmonary systolic pressure has improved, previously 55-60 mmHg
Plan:
- She feels as though her breathing is continuing to improve as is her lower extremity edema. Mobility issues as an outpatient limit daily weights at home
- Plan to transition patient to p.o. Lasix 80 mg twice daily with metolazone 5 mg Sunday as an outpatient
- BUN continues to uptrend slightly while creatinine remains stable at 2.3, unclear why BUN has significantly increased over the last several months. Will need repeat proBNP and BMP in 1 week as outpatient
- Continue to wean supplemental oxygen as able, prior to admission was on 2 L nasal cannula about 50% of the time per her
- Echo with EF normal
- She is not a candidate for SGLT2 inhibitors given chronic UTIs and dementia
- In permanent A-fib status post AVN ablation in 2022. continue toprol. remains in vpaced rhythm on review of tele overnight
- Continue Eliquis 2.5 mg twice daily
- PT/OT
- Will arrange outpatient cardiac follow-up
- For possible discharge in a.m.
Progress Note - Director Music
Subjective
Date of Service: May 29, 2025
Reports breathing and lower extremity edema improving. No complaints
Objective
Labs:
05/29/25 05:38
05/29/25 05:38
Labs
Hgb 11.0 g/dL (12.0-16.0) L 05/29/25 05:38
Hct 32.2 % (37.0-47.0) L 05/29/25 05:38
Plt Count 128 10^3/uL (130-400) L 05/29/25 05:38
Sodium 132 mmol/L (135-145) L 05/29/25 05:38
Potassium 4.3 mmol/L (3.5-5.1) D 05/29/25 05:38
BUN 103 mg/dl (7-17) H* 05/29/25 05:38
Creatinine 2.3 mg/dL (0.6-1.0) H 05/29/25 05:38
Glucose 240 mg/dl (70-99) H 05/29/25 05:38
Troponins
05/27/25
08:54
Troponin I 0.206 H*
Vital Signs and I&O:
Vital Signs
Temp Pulse Resp BP Pulse Ox
98.2 F 71 18 122/68 97
05/29/25 11:35 05/29/25 11:35 05/29/25 11:35 05/29/25 11:35 05/29/25 12:53
Vital Signs
Temp Pulse Resp BP Pulse Ox
98.2 F 71 18 122/68 97
05/29/25 11:35 05/29/25 11:35 05/29/25 11:35 05/29/25 11:35 05/29/25 12:53
Intake & Output
05/27/25 05/28/25 05/29/25 05/30/25
07:59 07:59 07:59 07:59
Intake Total 360 / 360 600 / 600 720 / 720 240 / 240
Output Total 600 / 600 200 / 200
Balance -240 / -240 600 / 600 720 / 720 40 / 40
Physical Exam
Physical Exam
GEN: No distress, awake, alert, oriented x3. sitting in chair. on supp O2
HEENT: supple, anicteric, mmm, eomi
LUNGS: CTA B/L
CV: Reg, S1/S2, 1/6 murmur
ABD: soft, BS+, NT/ND
EXT: No cyanosis, clubbing. trace edema of B/L LE.
NEURO: Gross non-focal
SKIN: Warm, pink, dry. No rash. excoriations of B/L LE R>L
[2025-05-29 15:00] LABS: Folate > 20.0 ng/ml (2.76-20); Vitamin B12 616 pg/ml (239-931)
--- NOTE | 2025-05-29 16:03 | CM ---
Reviewed the chart notes and spoke with the patient at the bedside. IMM reviewed. CM continues to be available to patient/family and is monitoring medical plan for needs at discharge.
Plan: Discharge to home with resumption of VN services.
[2025-05-29] MEDS: NOVOLOG FLEXPEN-HIGH RESISTANCE 7 UNITS SC (16:56)
[2025-05-29] MEDS: LIPITOR 40 MG PO (17:00)
[2025-05-29 17:02] LABS: Glucose - Point of Care 251 mg/dl (70-99)
[2025-05-29 21:56] LABS: Glucose - Point of Care 160 mg/dl (70-99)
[2025-05-29] MEDS: LANTUS 0.2 UNITS SC (21:58)
[2025-05-30 05:46] VITALS: BMI 30.8
[2025-05-30] MEDS: SYNTHROID 125 MCG PO (06:17)
[2025-05-30 06:49] LABS: Hematocrit 34.0 % (37.0-47.0); Hemoglobin 11.5 g/dL (12.0-16.0); Mean Corp Hgb Conc. 33.8 g/dL (33.0-37.0); Mean Corpuscular Volume 100.9 fL (81.0-99.0); Nucleated Red Blood Cells % 0 %; Platelet Count 140 10^3/uL (130-400); Red Cell Dist. Width 15.2 % (11.5-14.5)
[2025-05-30 07:52] LABS: ALT (SGPT) 15 U/L (0-35); AST (SGOT) 23 U/L (14-36); Albumin 3.8 g/dl (3.5-5.0); Alkaline Phosphatase 134 U/L (38-126); Blood Urea Nitrogen 95 mg/dl (7-17); Calcium 9.1 mg/dl (8.4-10.2); Carbon Dioxide 29 mmol/L (22-30); Chloride 94 mmol/L (98-107); Estimated Creatinine Clearance 16 ml/min; Glucose 173 mg/dl (70-99); Potassium 3.0 mmol/L (3.5-5.1); Sodium 134 mmol/L (135-145); Total Protein 7.2 g/dl (6.3-8.2); eGFR 18.95
[2025-05-30 08:00] VITALS: BP 131/79
[2025-05-30 08:42] LABS: Magnesium 2.0 mg/dl (1.6-2.3)
[2025-05-30 08:57] LABS: Glucose - Point of Care 158 mg/dl (70-99)
[2025-05-30] MEDS: KCL 40 MEQ PO (09:09)
[2025-05-30] MEDS: STERILE WATER FOR INJECTION 10 ML IV (09:09)
[2025-05-30] MEDS: ROCEPHIN 1000 MG IV (09:09)
[2025-05-30] MEDS: LASIX 80 MG PO (09:10)
[2025-05-30] MEDS: NEURONTIN 600 MG PO (09:10)
[2025-05-30] MEDS: PROTONIX 40 MG PO (09:10)
[2025-05-30] MEDS: TOPROL XL 25 MG PO (09:11)
[2025-05-30] MEDS: COLACE 100 MG PO (09:11)
[2025-05-30] MEDS: ELIQUIS 2.5 MG PO (09:11)
[2025-05-30] MEDS: CYMBALTA DELAYED RELEASE 30 MG PO (09:11)
[2025-05-30] MEDS: CLARITIN 10 MG PO (09:11)
[2025-05-30] MEDS: VITAMIN D3 (cholecalciferol) 50 MCG PO (09:12)
[2025-05-30] MEDS: DESENEX/MITRAZOL/ZEASORB 1 APPLIC TOPICAL (09:15)
[2025-05-30] MEDS: KCL 20 MEQ PO (09:16)
[2025-05-30] MEDS: NOVOLOG FLEXPEN-HIGH RESISTANCE 2 UNITS SC (10:00)
[2025-05-30] MEDS: ZAROXOLYN 5 MG PO (10:22)
--- NOTE | 2025-05-30 11:22 | W.PN.CARDCBS ---
Today's Communication / Plan
-
As long as repeat potassium is significantly improved, would not be unreasonable to allow discharge to home today on Lasix 80 mg p.o. twice daily in a.m. with metolazone 5 mg Sunday and Sunday
Will need repeat basic metabolic panel in 1 week as OP.
Our team has arranged outpatient follow-up
TT'ed with primary service re need to re-check K prior to consideration for DC home.
Impression / Plan
-
Primary Cork Cutter: Dr. Santa Yen
Assessment:
Acute on chronic HFpEF
Presentation with worsening proBNP
Elevated troponin, suspected nonischemic myocardial injury
Permanent atrial fibrillation
Intolerant to Amiodarone due to possible lung toxicity d/josé 09/2021
Chronic OAC with Eliquis
s/p AV node ablation 03/01/2023
Sick sinus syndrome
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
COPD
CKD 3b
Chronic anemia
Hypertension
Hyperlipidemia
Hypothyroidism
Diabetes type 2
Obstructive sleep apnea
Malignant melanoma
Basal cell carcinoma
GERD
WESTLEY
Duodenal ulcer
Retroperitoneal lymphadenopathy
Spinal stenosis
Osteoarthritis
History of type II [place] in setting of GI bleed 06/2020
Dementia
Chronic UTIs
DNR CODE STATUS
ECHO 01/23/25: TDS, moderate concentric LVH, EF 60%, right-sided device wire present, mild MR, moderate TR, PAP 55 to 60 mmHg
Acute on chronic HFpEF
Echo 05/26/2025: Normal left ventricular size and function. Moderate concentric left ventricular hypertrophy. LVEF 55-60% by visual assessment. Normal RV. Mild to moderate mitral regurgitation.
Moderate tricuspid regurgitation. Estimated pulmonary artery pressure of 35-40
mmHg. Assuming a right atrial pressure of 3 mmHg. Compared to prior study dated 01/23/2025, estimated pulmonary systolic pressure has improved, previously 55-60 mmHg
Plan:
Complex case given renal insufficiency as well as heart failure with preserved ejection fraction.
This is been discussed in detail with the patient and her family.
Has been getting IV Lasix as well as oral metolazone. BUN has been rising. Was up to 103 yesterday. She has been switched to Lasix 80 mg p.o. twice daily in a.m. with metolazone 5 mg Sunday and Sunday.
Labs this morning show slight improvement in BUN to 95. Creatinine essentially stable at 2.4.
Potassium is very low at 3. This was treated with IV potassium repletion.
Patient is insisting on discharge to home today. Discussed with her and her family at bedside.
As long as repeat potassium is significantly improved, would not be unreasonable to allow discharge to home today on Lasix 80 mg p.o. twice daily in a.m. with metolazone 5 mg Sunday and Sunday
Will need repeat basic metabolic panel in 1 week.
Our team has arranged outpatient follow-up
TT'ed with primary service re need to re-checlk K prior to consideration for DC home.
A-fib remains rate controlled.
She had AV node ablation in 2022
Telemetry shows she remains ventricularly paced
Maintain Eliquis 2.5 mg twice daily for atrial fibrillation related thromboembolic risk reduction.
Total time spent today was 32 minutes in preparing to see the patient, seeing the patient and coordination of care. This included review of recent laboratory evaluations, cardiact testing, imaging studies, primary care rtecords, specialty
consultations, hospital records, as well as personally interviewing and examining the patient, which included discussion of their tests, review/ordering medications, and communicating with other healthcare professionals and also treatment planning
as well as counseling.
Progress Note - Cork Cutter
Subjective
Date of Service: May 30, 2025
She tells me she feels 'good', no SOB or CP
Objective
Labs:
05/30/25 05:52
05/30/25 05:52
Labs
Hgb 11.5 g/dL (12.0-16.0) L 05/30/25 05:52
Hct 34.0 % (37.0-47.0) L 05/30/25 05:52
Plt Count 140 10^3/uL (130-400) 05/30/25 05:52
Sodium 134 mmol/L (135-145) L 05/30/25 05:52
Potassium 3.0 mmol/L (3.5-5.1) L D 05/30/25 05:52
BUN 95 mg/dl (7-17) H 05/30/25 05:52
Creatinine 2.4 mg/dL (0.6-1.0) H 05/30/25 05:52
Glucose 173 mg/dl (70-99) H 05/30/25 05:52
Vital Signs and I&O:
Vital Signs
Temp Pulse Resp BP Pulse Ox
98.2 F 71 18 131/79 99
05/30/25 08:00 05/30/25 09:11 05/30/25 08:00 05/30/25 09:11 05/30/25 11:15
Vital Signs
Temp Pulse Resp BP Pulse Ox
98.2 F 71 18 131/79 99
05/30/25 08:00 05/30/25 09:11 05/30/25 08:00 05/30/25 09:11 05/30/25 11:15
Intake & Output
05/28/25 05/29/25 05/30/25 05/31/25
06:59 06:59 06:59 06:59
Intake Total 600 / 600 720 / 720 780 / 780
Output Total 200 / 200
Balance 600 / 600 720 / 720 580 / 580
Physical Exam
Physical Exam
Elderly woman sitting in chair no acute distress
Regular rate and rhythm normal S1 and S2, no S3 no S4 to be 2/6 apical holosystolic murmur with no rubs
Lungs are clear to auscultation bilaterally
Extremities demonstrate +2 pretibial edema bilateral lower extremities
Abdomen soft nontender nondistended with normoactive bowel sounds
--- NOTE | 2025-05-30 12:25 | W.PN.HOSP.TC ---
Today's Communication/Plan
-
dc
Assessment / Plan
Assessment / Plan
89yo F with PMHX of dementia, HLD, COPD, SCOTT on CPAP and as needed O2 2L at home, Afib on ELiquis, DM with neuropathy, hypothyroidism, GERD, brought by her with concern for obtundance and hypoxia, found CHF exacerbation and concern for UTI.
UCx grew cephalosporin sensitive E.coli. Pharmacy Order Entry Technician recommended home diuretic regimen and repeat BMP in 1 week - dfamily will follow with PCP for that and they verbalized understanding of the instructions. patient back to baseline, PT/OT
recommended home health. Medically stable for d/c as potassium approprietly repleted
A/P:
#Acute on chornic HFpEF exacerbation
#Pulmonary HTN
#SCOTT on CPAP
#Chronic hypoxic respiratory failure
COnt O2
Diuresis as per cardio, follow Cr and daily electrolytes, weight
CPAP at night encouraged, patient owns machine
#Acute metabolic encephalopathy on baseline unspecified dementia
#Recurrent chronic UTI
most likely /2 hypoxia, cannot exclude UTI as a reason for CHF exacerbation
UCx - GNB
ceftriaxone on 05/29/25
Mentation back to normal as per bedside on 05/29/25
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
cont insulin SS, home insulin, accuchecks, DM diet
#Non-ischemic myocardial injury
2/2 CHF
#Mild chronic alk.phos elevation
possible osteoporosis
follow with pcp
#HLD
#EssentiaL HTN
#COPD, not in exacerbation
#Afib permanent
#SSS s/p PPM
#CKD stage 3b
#Chronic anemia
#Malignant melanoma
#BCC of the skin
#PUD
#Hypothyroidism
#CAD stable
cont home meds
#Mild thrombocytopenia
reactive?
follow with PCP
follow CBC
DVT ppx ELiquis
DNR/DNI
I have spent at least 56min reviewing chart, test results, communication with consultants and providing direct patient care
Code Status: DNR
Discussed with patient spouse and granddaughter at bedside in details
Anticipated Discharge: Today
Subjective/Interval History
-
Date of Service: May 30, 2025
Objective Data
-
Labs:
Laboratory Results
05/30/25 05/30/25
05:52 12:23
WBC 9.0
Hgb 11.5 L
Hct 34.0 L
Plt Count 140
Sodium 134 L
Potassium 3.0 L D Pending
Chloride 94 L
Carbon Dioxide 29
BUN 95 H
Creatinine 2.4 H
Glucose 173 H
Calcium 9.1
Total Bilirubin 1.0
AST 23
ALT 15
Alkaline Phosphatase 134 H
Vital Signs:
Vital Signs
Temp Pulse Resp BP Pulse Ox
98.2 F 71 18 131/79 99
05/30/25 08:00 05/30/25 09:11 05/30/25 08:00 05/30/25 09:11 05/30/25 11:20
I&O
05/29/25 05/30/25 05/31/25
06:59 06:59 06:59
Intake Total 720 / 720 780 / 780
Output Total 200 / 200
Balance 720 / 720 580 / 580
Review of Systems
-
Unable to obtain full review of systems at this time due to: Dementia
History Source: Patient
All other systems: Reviewed and negative
Physical Exam
-
General: No Apparent Distress
HEENT: Normocephalic
Respiratory: Clear to Auscultation
GI: Soft, Nontender and Nondistended
Musculoskeletal: No Clubbing, No Cyanosis and No Edema
Neuro: Awake, Alert, Oriented and AO x 3
Psych: Calm
[2025-05-30 12:36] LABS: Glucose - Point of Care 224 mg/dl (70-99)
[2025-05-30] MEDS: NOVOLOG FLEXPEN-HIGH RESISTANCE 4 UNITS SC (12:38)
[2025-05-30 12:48] LABS: Potassium 3.8 mmol/L (3.5-5.1)
--- NOTE | 2025-05-30 13:31 | W.DCSUMMARY ---
Discharge Summary
Discharge Data
Date of Admission: 05/26/25
Date of Discharge: 05/30/25
-
Pending Results: No
Hospital Course
89yo F with PMHX of dementia, HLD, COPD, SCOTT on CPAP and chronic O2 2L at home, Afib on ELiquis, DM with neuropathy, hypothyroidism, GERD, brought by her with concern for obtundance and hypoxia, found CHF exacerbation and concern for UTI.
UCx grew cephalosporin sensitive E.coli. Communications Superintendent recommended home diuretic regimen and repeat BMP in 1 week - dfamily will follow with PCP for that and they verbalized understanding of the instructions. patient back to baseline, PT/OT
recommended home health. Medically stable for d/c as potassium approprietly repleted
I have spent at least 56min reviewing chart, test results, communication with consultants and providing direct patient care
Patient was managed for:
#Acute on chornic HFpEF exacerbation
#Pulmonary HTN
#SCOTT on CPAP
#Chronic hypoxic respiratory failure
#Acute metabolic encephalopathy on baseline unspecified dementia
#Recurrent chronic UTI
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
#Non-ischemic myocardial injury
#Mild chronic alk.phos elevation
#HLD
#EssentiaL HTN
#COPD, not in exacerbation
#Afib permanent
#SSS s/p PPM
#CKD stage 3b
#Chronic anemia
#Malignant melanoma
#BCC of the skin
#PUD
#Hypothyroidism
#CAD stable
#Mild thrombocytopenia resolved on Abx
Discharge Plan
-
Patient Disposition: Home with Home Care
Discharge Diagnosis/Procedures: UTI, CHF
Diet: 2 Gram Sodium and Restrict fluids to 48 oz
Blood Work: BMP/proBNP in 1 week
Other Services: VN
Specialty Instructions: Weigh Daily- Call MD for wt gain/loss 3 lbs overnight/5 lbs in 1 week
Instructions: *[facility] Heart Failure Instructions
Referrals:
Jose C Rockwell MD [Family Provider, Family Practice]
Laura Reeves CRNP [Specified Professional Personl, Cardiology] - 06/08/25 3:20 pm
Referral Note: You have a cardiology follow-up appointment at the [place] office with Dr. Pratt's nurse practitioner, Laura. Please call with questions
Prescriptions:
New
metolazone 5 mg Tablet
5 mg PO MoWeFr@0800 Qty: 60 0RF
cefuroxime axetil 500 mg tablet
500 mg PO Q12H Qty: 18 0RF
Continued
gabapentin 300 MG capsule
600 mg PO BID
atorvastatin 40 MG tablet
40 mg PO QPM 30 Days Qty: 30 0RF
pantoprazole 40 MG tablet,delayed release (DR/EC)
40 mg PO BID 30 Days Qty: 60 2RF
Eliquis 2.5 MG tablet
2.5 mg PO BID 30 Days Qty: 60 0RF
sennosides [Senokot] 8.6 mg Tablet
8.6 mg PO MOTH
potassium chloride 10 mEq Capsule, Extended Release
20 meq PO DAILY
levothyroxine 125 mcg Tablet
125 mcg PO DAILY
insulin aspart U-100 [Novolog FlexPen U-100 Insulin] 100 unit/mL (3 mL) Insulin Pen
0 sliding scale dose SC AC
Rx Instructions:
BS 100-149 = 16 units; 150-199 = 19 units; 200-249 = 21 units; 250-299 = 23 units; 300-349 = 25 units; 350-399 = 27 units; 400+ = 29 units
metoprolol succinate 25 mg Tablet Extended Release 24 Hr
25 mg PO BID
therapeutic multivitamin Tablet
1 tab PO DAILY
nitroglycerin 0.4 mg Tablet, Sublingual
0.4 mg SUBLINGUAL [id number] PRN (Reason: chest pain)
docusate sodium [Colace] 100 mg Capsule
100 mg PO DAILY
Visbiome 112.5 billion cell Capsule
1 cap PO DAILY
cholecalciferol (vitamin D3) [Vitamin D3] 50 mcg (2,000 unit) Tablet
50 mcg PO DAILY
albuterol sulfate 90 mcg/actuation Hfa Aerosol Inhaler
2 puff INHALATION Q6H PRN (Reason: SOB)
loratadine 10 mg Tablet
10 mg PO DAILY
duloxetine 30 mg Capsule, Delayed Rel Sprinkle
30 mg PO DAILY
furosemide [Lasix] 80 mg tablet
80 mg PO BID
Changed
insulin degludec [Tresiba FlexTouch U-100] 100 unit/mL (3 mL) Insulin Pen
20 unit SC HS Qty: 0 0RF
Discontinued
metolazone 5 mg Tablet
5 mg PO DAILY
Discharge Orders:
Discharge Patient (As Directed); Ordered 05/30/25
Ordered By: Jakub Navas
Discharge Date and Time
Print Language: BULGARIAN
[2025-05-30 14:17] VITALS: BP 97/75
[2025-05-30 14:24] VITALS: BP 122/77
--- NOTE | 2025-05-30 15:39 | CM ---
Patient has been medically cleared for discharge to home with [facility], PT/OT services. Family transported home.
== END 2025-05-30 15:18 | disposition home health service (06) | DRG 291 ==
LOC: 2 NORTH 01:23
PROVIDERS: Emergency Medicine; Hospitalist; Internal Medicine Cardiovascular Disease; ADMITTING PHYSICIAN Hospitalist; ATTENDING PHYSICIAN Internal Medicine; CONSULT PHYSICIAN Internal Medicine Cardiovascular Disease; EMERGENCY PHYSICIAN Emergency Medicine; FAMILY PHYSICIAN Family Medicine
DX: I13.0 Hypertensive heart and chronic kidney disease with heart failure and stage 1 through stage 4 chronic kidney disease, or unspecified chronic kidney disease (principal); G93.41 Metabolic encephalopathy; I50.33 Acute on chronic diastolic (congestive) heart failure; N18.4 Chronic kidney disease, stage 4 (severe); N39.0 Urinary tract infection, site not specified; I48.21 Permanent atrial fibrillation; J96.11 Chronic respiratory failure with hypoxia; I5A Non-ischemic myocardial injury (non-traumatic); I27.20 Pulmonary hypertension, unspecified; G47.33 Obstructive sleep apnea (adult) (pediatric); F03.90 Unspecified dementia, unspecified severity, without behavioral disturbance, psychotic disturbance, mood disturbance, and anxiety; E11.40 Type 2 diabetes mellitus with diabetic neuropathy, unspecified; E11.22 Type 2 diabetes mellitus with diabetic chronic kidney disease; E78.00 Pure hypercholesterolemia, unspecified; Z99.81 Dependence on supplemental oxygen; J44.9 Chronic obstructive pulmonary disease, unspecified; Z95.0 Presence of cardiac pacemaker; I49.5 Sick sinus syndrome; C43.9 Malignant melanoma of skin, unspecified; E03.9 Hypothyroidism, unspecified; I25.10 Atherosclerotic heart disease of native coronary artery without angina pectoris; D69.6 Thrombocytopenia, unspecified; K21.9 Gastro-esophageal reflux disease without esophagitis; Z66 Do not resuscitate; D50.9 Iron deficiency anemia, unspecified; G89.29 Other chronic pain; I25.2 Old myocardial infarction; Z91.040 Latex allergy status; Z88.2 Allergy status to sulfonamides; Z88.6 Allergy status to analgesic agent; Z87.11 Personal history of peptic ulcer disease; M19.90 Unspecified osteoarthritis, unspecified site; Z79.01 Long term (current) use of anticoagulants; Z79.4 Long term (current) use of insulin; Z79.890 Hormone replacement therapy; Z79.899 Other long term (current) drug therapy; Z86.0109 Personal history of other colon polyps
CPT/HCPCS: 36415; 71046; 73030; 80048; 80053; 81003; 81015; 82607; 82746; 82947; 82962; 83036; 83735; 83880; 84132; 84484; 85025; 85027; 87077; 87086; 87186; 92610; 93005; 93308; 93321; 93325; 93971; 94660; 97163; 97167; 97530; 97535

== ENCOUNTER → 2025-06-20 11:40 | Outpatient (REF) | payer MEDICARE, OTHER, SELFPAY ==
[2025-06-20 12:36] LABS: Blood Urea Nitrogen 99 mg/dl (7-17); Calcium 9.5 mg/dl (8.4-10.2); Carbon Dioxide 37 mmol/L (22-30); Chloride 87 mmol/L (98-107); Glucose 357 mg/dl (70-99); Potassium 3.5 mmol/L (3.5-5.1); Sodium 133 mmol/L (135-145); eGFR 22.25
== END ==
LOC: REG 11:40
PROVIDERS: ATTENDING PHYSICIAN Internal Medicine Cardiovascular Disease; FAMILY PHYSICIAN Family Medicine
DX: I50.32 Chronic diastolic (congestive) heart failure (principal)
CPT/HCPCS: 36415; 80048; 83880

== ENCOUNTER → 2025-06-22 15:44 | Outpatient (REF) | payer MEDICARE, OTHER, SELFPAY ==
[2025-06-22 16:26] LABS: Urine Character Clear (Clear)
[2025-06-22 17:14] LABS: Urine Red Blood Cell 0-2 /HPF (0-2); Urine Squamous Cell >30 /LPF (Few); Urine White Cell 30-40 /HPF (0-5)
== END ==
LOC: REG 15:44
PROVIDERS: ATTENDING PHYSICIAN Family Medicine
DX: N39.0 Urinary tract infection, site not specified (principal)
CPT/HCPCS: 81003; 81015; 87077; 87086; 87186

== ENCOUNTER → 2025-07-06 13:27 | Outpatient (REF) | payer MEDICARE, OTHER, SELFPAY ==
[2025-07-06 14:41] LABS: Urine Character Cloudy (Clear)
[2025-07-06 15:04] LABS: Urine Red Blood Cell 0-2 /HPF (0-2); Urine White Cell 16-20 /HPF (0-5)
[2025-07-06 15:08] LABS: Blood Urea Nitrogen 88 mg/dl (7-17); Calcium 9.3 mg/dl (8.4-10.2); Carbon Dioxide 31 mmol/L (22-30); Chloride 94 mmol/L (98-107); Glucose 214 mg/dl (70-99); Potassium 3.9 mmol/L (3.5-5.1); Sodium 134 mmol/L (135-145); eGFR 21.04
== END ==
LOC: REG 13:27
PROVIDERS: ATTENDING PHYSICIAN Internal Medicine Cardiovascular Disease; FAMILY PHYSICIAN Family Medicine
DX: N39.0 Urinary tract infection, site not specified (principal); I50.32 Chronic diastolic (congestive) heart failure
CPT/HCPCS: 36415; 80048; 81003; 81015; 83880; 87077; 87086; 87186

== ENCOUNTER → 2025-07-23 08:36 | Outpatient (REF) | payer MEDICARE, OTHER, SELFPAY ==
[2025-07-23 18:38] LABS: Urine Character Cloudy (Clear)
[2025-07-23 19:13] LABS: Urine Red Blood Cell >100 /HPF (0-2)
[2025-07-23 19:14] LABS: Urine White Cell 40-50 /HPF (0-5)
== END ==
LOC: CLAB 08:36
PROVIDERS: ATTENDING PHYSICIAN Physician Assistant
DX: N39.0 Urinary tract infection, site not specified (principal)
CPT/HCPCS: 81003; 81015; 87077; 87086; 87186

== ENCOUNTER → 2025-08-24 13:23 | Outpatient (REF) | payer MEDICARE, OTHER, SELFPAY ==
[2025-08-24 14:13] LABS: Urine Character Cloudy (Clear)
[2025-08-24 14:36] LABS: Urine Squamous Cell >30 /LPF (Few)
[2025-08-24 14:37] LABS: Urine Red Blood Cell 0-2 /HPF (0-2); Urine White Cell 50-60 /HPF (0-5)
[2025-08-24 15:02] LABS: Blood Urea Nitrogen 112 mg/dl (7-17); Calcium 9.5 mg/dl (8.4-10.2); Carbon Dioxide 31 mmol/L (22-30); Chloride 86 mmol/L (98-107); Glucose 334 mg/dl (70-99); Potassium 3.6 mmol/L (3.5-5.1); Sodium 130 mmol/L (135-145); eGFR 18.95
== END ==
LOC: REG 13:23
PROVIDERS: ATTENDING PHYSICIAN Internal Medicine Cardiovascular Disease; FAMILY PHYSICIAN Family Medicine; OTHER PHYSICIAN Specialist; REFERRING PHYSICIAN Physician Assistant
DX: N17.9 Acute kidney failure, unspecified (principal); N39.0 Urinary tract infection, site not specified; I50.30 Unspecified diastolic (congestive) heart failure; I13.0 Hypertensive heart and chronic kidney disease with heart failure and stage 1 through stage 4 chronic kidney disease, or unspecified chronic kidney disease; N18.4 Chronic kidney disease, stage 4 (severe)
CPT/HCPCS: 36415; 80048; 81003; 81015; 82570; 83970; 84100; 84156; 87077; 87086; 87186

== ENCOUNTER → 2025-09-09 12:27 | Outpatient (REF) | payer MEDICARE, OTHER, SELFPAY ==
[2025-09-09 14:21] LABS: Urine Character Slightly Cloudy (Clear)
[2025-09-09 14:32] LABS: Urine Squamous Cell >30 /LPF (Few)
[2025-09-09 14:33] LABS: Urine White Cell 40-50 /HPF (0-5)
== END ==
LOC: REG 12:27
PROVIDERS: ATTENDING PHYSICIAN Family Medicine
DX: N39.0 Urinary tract infection, site not specified (principal)
CPT/HCPCS: 81003; 81015; 87077; 87086; 87186

== ENCOUNTER → 2025-09-28 13:23 | Outpatient (REF) | payer MEDICARE, OTHER, SELFPAY ==
[2025-09-28 14:46] LABS: Hematocrit 38.2 % (37.0-47.0); Hemoglobin 12.3 g/dL (12.0-16.0); Mean Corp Hgb Conc. 32.2 g/dL (33.0-37.0); Mean Corpuscular Volume 99.5 fL (81.0-99.0); Nucleated Red Blood Cells % 0 %; Platelet Count 322 10^3/uL (130-400); Red Cell Dist. Width 15.0 % (11.5-14.5)
[2025-09-28 14:59] LABS: ALT (SGPT) 17 U/L (0-35); AST (SGOT) 22 U/L (14-36); Albumin 3.7 g/dl (3.5-5.0); Alkaline Phosphatase 179 U/L (38-126); Blood Urea Nitrogen 63 mg/dl (7-17); Calcium 9.2 mg/dl (8.4-10.2); Carbon Dioxide 30 mmol/L (22-30); Chloride 94 mmol/L (98-107); Glucose 151 mg/dl (70-99); Potassium 4.1 mmol/L (3.5-5.1); Sodium 133 mmol/L (135-145); Total Protein 7.8 g/dl (6.3-8.2); eGFR 26.77
[2025-09-28 15:30] LABS: TSH 0.42 uIU/ml (0.47-4.68)
[2025-09-29 09:33] LABS: Glycohemoglobin (HgbA1c) 8.7 % (4.0-5.9)
== END ==
LOC: REG 13:23
PROVIDERS: ATTENDING PHYSICIAN Physician Assistant
DX: E11.65 Type 2 diabetes mellitus with hyperglycemia (principal); E03.9 Hypothyroidism, unspecified
CPT/HCPCS: 36415; 80053; 83036; 84439; 84443; 85025